=== PATIENT | female | born 1960 | race Caucasian/White ===

== ENCOUNTER → 2018-01-20 | Outpatient (CLI) | payer OTHER ==
--- NOTE | 2018-01-21 13:56 | MM ---
Reason for exam: screening (asymptomatic). Last mammogram was performed 3 years and 3 months ago. History: Patient is postmenopausal. Taking progesterone. Physical Findings: A clinical breast exam by your physician is recommended on an annual basis and results should be correlated with mammographic findings. MG Screening Mammo w CAD Bilateral CC and MLO view(s) were taken. Prior study comparison: October 04, 1998, bilateral special view mammogram. The breast tissue is heterogeneously dense. This may lower the sensitivity of mammography. No significant changes when compared with prior studies. ASSESSMENT: Benign, BI-RAD 2 RECOMMENDATION: Routine screening mammogram of both breasts in 1 year.
== END | disposition home or self-care (01) ==
LOC: RADMAMWWP 12-23 15:10
PROVIDERS: ATTEND Obstetrics & Gynecology
DX: Z12.31 Encounter for screening mammogram for malignant neoplasm of breast (principal)
CPT/HCPCS: 77067

== ENCOUNTER 2018-09-28 12:15 | Inpatient (IN) | payer OTHER ==
[2018-09-28 10:47] LABS: Basophils % (A) 0 %; Eosinophils # (A) 0.2 k/uL (0-0.7); Eosinophils % (A) 1 %; HCT 41.4 % (34.0-46.0); Lymphocytes % (A) 6 %; MCH 32.1 pg (25.0-35.0); MCHC 33.7 g/dL (31.0-37.0); MCV 95.1 fL (80.0-100.0); Mean Platelet Volume 7.7; Monocytes % (A) 6 %; Neutrophils # (A) 12.9 k/uL (1.3-7.7); Neutrophils % (A) 85 %; Platelet Count 328 k/uL (150-450); RBC 4.36 m/uL (3.80-5.40); RDW 12.3 % (11.5-15.5); WBC 15.2 k/uL (3.8-10.6)
[2018-09-28 11:00] LABS: Appearance,Urine Cloudy (Clear); Bilirubin,Urine Negative (Negative); Blood,Urine Small (Negative); Color,Urine Dark Yellow; Glucose,Urine (UA) Negative (Negative); Hyaline Casts,Urine 5 /lpf (0-2); Ketones,Urine 2+ (Negative); Leukocyte Esterase,Urine Negative (Negative); Mucus,Urine Many /hpf; Nitrite,Urine Negative (Negative); Protein,Urine 2+ (Negative); RBC,Urine 21 /hpf (0-5); Specific Gravity,Urine 1.031 (1.001-1.035); Squamous Epithelial Cell,Urine 10 /hpf (0-4); WBC,Urine 8 /hpf (0-5)
[2018-09-28 11:04] LABS: Albumin 4.5 g/dL (3.5-5.0); Calcium 10.1 mg/dL (8.4-10.2); Total Bilirubin 0.8 mg/dL (0.2-1.3)
--- NOTE | 2018-09-28 12:24 | CT ---
EXAMINATION TYPE: CT abdomen pelvis w con DATE OF EXAM: 09/28/2018 COMPARISON: NONE HISTORY: 58-year-old female with upper abdominal right lower quadrant pain for 5 days. TECHNIQUE: Contiguous axial scanning of the abdomen and pelvis following administration of 100 ml Iso promise 300 IV contrast. Delayed images through the kidneys and coronal/sagittal reconstructions perform ed. CT DLP: 1264 mGycm Automated exposure control for dose reduction was used. FINDINGS: Heart normal size without pericardial effusion. Strandy atelectasis or scarring at the left lung base . No pleural effusion. No focal liver lesion or biliary ductal dilatation. Portal venous system is patent. Gallbladder, adrenal glands, spleen, and pancreas appear within normal limits. Scattered hypodense lesions in the kidneys measuring up to 1.4 cm, too small fractured CT characteriz ation, likely cysts. Symmetric uptake and excretion of contrast from both kidneys. No mesenteric or retroperitoneal lymphadenopathy. The cecum is swelling over medial position high in the mid abdomen, probably in part due to mass effe ct from inflammatory changes relating to a thickened, inflamed appendix. The appendix becomes discont inuous along its midportion with a localized rupture. Poorly defined fluid collection measuring 4.8 cm wide by 3.5 cm craniocaudal by 2.9 cm AP extending f rom the site of rupture. Severe fat stranding in this region and borderline enlarged 6 mm right lower quadrant mesenteric lymp h node which is likely reactive. No free air is seen. There is adjacent thickening of the cecum at the base of the appendix and also of the terminal ileum which is narrowed from the adjacent inflammation. Bladder is urine distended. Uterus and ovaries are visualized. No abnormal fluid collection in the pe lvis or pelvic lymphadenopathy. Bones: Degenerative changes of the pubic symphysis. Facet arthropathy lower lumbar spine. Degenerativ e disc disease L5-S1. No osseous process. IMPRESSION: 1. RUPTURED ACUTE APPENDICITIS WITH MODERATE TO SEVERE SURROUNDING INFLAMMATION AND ASSOCIATED POORLY DEFINED FLUID MEASURING 4.8 CM ARISING FROM THE SITE OF RUPTURE. NO WELL-DEFINED ABSCESS AT THIS CARLINE E. 2. WALL THICKENING OF THE ADJACENT CECUM AND TERMINAL ILEUM LIKELY REACTIVE INFLAMMATION. FINDINGS WILL BE CALLED TO THE ORDERING CLINICIAN BY THE TECHNOLOGIST.
[2018-09-28] MEDS ORDERED: SODIUM CHLORIDE 0.9% 1,000 ML IV STA (12:30)
[2018-09-28] MEDS ORDERED: AMPICILLIN-SULBACTAM 3 GM in SODIUM CHLORIDE 0.9% 100 ML IVPB STA (12:40)
[2018-09-28] MEDS ORDERED: ACETAMINOPHEN IV (For NPO) 1,000 MG in EMPTY BAG 1 BAG IVPB STA (12:40)
--- NOTE | 2018-09-28 12:40 | ED ---
General Adult HPI - General Chief complaint: Abdominal Pain Stated complaint: Abd.pain Time Seen by Provider: 09/28/18 12:29 Source: patient, RN notes reviewed Mode of arrival: wheelchair Limitations: no limitations - History of Present Illness Initial comments: 38-year-old female presents to the emergency department from [place]. Patient was sent over for findings of acute appendicitis. Patient states she has had symptoms for the past 5 days. She states at first it was localized in the upper abdomen. She states her pain was worse yesterday and did feel somewhat better today. Patient now states pain is localized in the right lower quadrant. Aggravating factors include picking up her legs and walking. Alleviating factors include laying down. Patient denies fevers or chills at home. She states she has not been eating as much over the past several days because of the pain. She does admit to mild nausea. Patient did not drink any liquids today or eat any food. Patient has no other complaints at this time including shortness of breath, chest pain, nausea or vomiting, headache, or visual changes. - Related Data Home Medications Medication Instructions Recorded Confirmed Naproxen Sodium [Aleve] 440 mg PO DAILY PRN 09/28/18 09/28/18 Allergies Allergy/AdvReac Type Severity Reaction Status Date / Time No Known Allergies Allergy Verified 09/28/18 13:05 Review of Systems ROS Statement: Those systems with pertinent positive or pertinent negative responses have been documented in the HPI. ROS Other: All systems not noted in ROS Statement are negative. Past Medical History Past Medical History: No Reported History History of Any Multi-Drug Resistant Organisms: None Reported Additional Past Surgical History / Comment(s): lithotripsy Past Psychological History: No Psychological Hx Reported Smoking Status: Never smoker Past Alcohol Use History: None Reported, Occasional Past Drug Use History: None Reported, Marijuana - Past Family History Father Family Medical History: Hypertension Additional Family Medical History / Comment(s): Father has some heart issues. Mother Family Medical History: Hypertension Additional Family Medical History / Comment(s): Mother had an appendectomy and knee replacement. General Exam Limitations: no limitations General appearance: alert, in no apparent distress Head exam: Present: atraumatic, normocephalic, normal inspection Eye exam: Present: normal appearance, PERRL, EOMI. Absent: scleral icterus, conjunctival injection, periorbital swelling ENT exam: Present: normal exam, mucous membranes moist Neck exam: Present: normal inspection, full ROM. Absent: tenderness, meningismus, lymphadenopathy Respiratory exam: Present: normal lung sounds bilaterally. Absent: respiratory distress, wheezes, rales, rhonchi, stridor Cardiovascular Exam: Present: regular rate, normal rhythm, normal heart sounds. Absent: systolic murmur, diastolic murmur, rubs, gallop, clicks GI/Abdominal exam: Present: soft, tenderness (Tenderness noted to the right lower quadrant, guarding present. Positive obturator sign. Positive rebound tenderness), normal bowel sounds. Absent: distended, guarding, rebound, rigid Neurological exam: Present: alert, oriented X3, CN II-XII intact Psychiatric exam: Present: normal affect, normal mood Course Vital Signs 09/28/18 09/28/18 09/28/18 12:20 13:49 13:55 Temperature 98.2 F 98.6 F Pulse Rate 98 88 Pulse Rate [ 86 Right Pulse Oximetery] Respiratory 18 18 16 Rate Blood Pressure 136/88 124/80 Blood Pressure 123/61 [Right Arm Supine] O2 Sat by Pulse 99 98 100 Oximetry Medical Decision Making - Medical Decision Making 58-year-old female presents to the emergency department for a chief complaint of ruptured appendicitis. Patient presents from outpatient CT. She has had symptoms for about 5 days. On exam she does have right lower quadrant tenderness with rebound and guarding. CBC does show a white count of 15.2. CMP unremarkable. Cultures pending. CT from outpatient shows a ruptured acute appendicitis with moderate to severe surrounding inflammation and associated poorly defined fluid measuring 4.8 cm. No well-defined abscess at this time. Patient immediately put on Unasyn. Dr. Franco contacted Dr. Boyer about the results who did call me here in the emergency department. He will admit the patient and states surgical team will be coming down to get her shortly. Discussed case with Alba - Lab Data Result diagrams: 09/28/18 12:48 09/28/18 12:48 Lab Results 09/28/18 09/28/18 09/28/18 Range/Units 10:25 10:25 10:25 WBC 15.2 H (3.8-10.6) k/uL RBC 4.36 (3.80-5.40) m/uL Hgb 14.0 (11.4-16.0) gm/dL Hct 41.4 (34.0-46.0) % MCV 95.1 (80.0-100.0) fL MCH 32.1 (25.0-35.0) pg MCHC 33.7 (31.0-37.0) g/dL RDW 12.3 (11.5-15.5) % Plt Count 328 (150-450) k/uL Neutrophils % 85 % Lymphocytes % 6 % Monocytes % 6 % Eosinophils % 1 % Basophils % 0 % Neutrophils # 12.9 H (1.3-7.7) k/uL Lymphocytes # 1.0 (1.0-4.8) k/uL Monocytes # 1.0 (0-1.0) k/uL Eosinophils # 0.2 (0-0.7) k/uL Basophils # 0.0 (0-0.2) k/uL Sodium 139 (137-145) mmol/L Potassium 4.0 (3.5-5.1) mmol/L Chloride 99 (98-107) mmol/L Carbon Dioxide 25 (22-30) mmol/L Anion Gap 15 mmol/L BUN 17 (7-17) mg/dL Creatinine 0.92 (0.52-1.04) mg/dL Est GFR (CKD-EPI)AfAm 80 (>60 ml/min/1.73 sqM) Est GFR (CKD-EPI)NonAf 70 (>60 ml/min/1.73 sqM) Glucose 92 (74-99) mg/dL Plasma Lactic Acid James (0.7-2.0) mmol/L Calcium 10.1 (8.4-10.2) mg/dL Total Bilirubin 0.8 (0.2-1.3) mg/dL AST 26 (14-36) U/L ALT 31 (9-52) U/L Alkaline Phosphatase 108 (38-126) U/L Total Protein 8.0 (6.3-8.2) g/dL Albumin 4.5 (3.5-5.0) g/dL Amylase 37 (30-110) U/L Lipase 47 (23-300) U/L Urine Color Dark Yellow Urine Appearance Cloudy H (Clear) Urine pH 6.0 (5.0-8.0) Ur Specific [place] 1.031 (1.001-1.035) Urine Protein 2+ H (Negative) Urine Glucose (UA) Negative (Negative) Urine Ketones 2+ H (Negative) Urine Blood Small H (Negative) Urine Nitrite Negative (Negative) Urine Bilirubin Negative (Negative) Urine Urobilinogen 8.0 (<2.0) mg/dL Ur Leukocyte Esterase Negative (Negative) Urine RBC 21 H (0-5) /hpf Urine WBC 8 H (0-5) /hpf Ur Squamous Epith Cells 10 H (0-4) /hpf Hyaline Casts 5 H (0-2) /lpf Urine Mucus Many H (None) /hpf 09/28/18 09/28/18 09/28/18 Range/Units 12:48 12:48 12:48 WBC 15.2 H (3.8-10.6) k/uL RBC 4.36 (3.80-5.40) m/uL Hgb 13.7 (11.4-16.0) gm/dL Hct 41.3 (34.0-46.0) % MCV 94.7 (80.0-100.0) fL MCH 31.3 (25.0-35.0) pg MCHC 33.1 (31.0-37.0) g/dL RDW 12.3 (11.5-15.5) % Plt Count 325 (150-450) k/uL Neutrophils % 84 % Lymphocytes % 6 % Monocytes % 7 % Eosinophils % 1 % Basophils % 0 % Neutrophils # 12.8 H (1.3-7.7) k/uL Lymphocytes # 0.9 L (1.0-4.8) k/uL Monocytes # 1.0 (0-1.0) k/uL Eosinophils # 0.2 (0-0.7) k/uL Basophils # 0.1 (0-0.2) k/uL Sodium 134 L (137-145) mmol/L Potassium 4.2 (3.5-5.1) mmol/L Chloride 97 L (98-107) mmol/L Carbon Dioxide 22 (22-30) mmol/L Anion Gap 15 mmol/L BUN 17 (7-17) mg/dL Creatinine 0.75 (0.52-1.04) mg/dL Est GFR (CKD-EPI)AfAm >90 (>60 ml/min/1.73 sqM) Est GFR (CKD-EPI)NonAf 89 (>60 ml/min/1.73 sqM) Glucose 93 (74-99) mg/dL Plasma Lactic Acid James 0.9 (0.7-2.0) mmol/L Calcium 9.8 (8.4-10.2) mg/dL Total Bilirubin 0.8 (0.2-1.3) mg/dL AST 30 (14-36) U/L ALT 27 (9-52) U/L Alkaline Phosphatase 107 (38-126) U/L Total Protein 7.6 (6.3-8.2) g/dL Albumin 4.3 (3.5-5.0) g/dL Amylase (30-110) U/L Lipase (23-300) U/L Urine Color Urine Appearance (Clear) Urine pH (5.0-8.0) Ur Specific [place] (1.001-1.035) Urine Protein (Negative) Urine Glucose (UA) (Negative) Urine Ketones (Negative) Urine Blood (Negative) Urine Nitrite (Negative) Urine Bilirubin (Negative) Urine Urobilinogen (<2.0) mg/dL Ur Leukocyte Esterase (Negative) Urine RBC (0-5) /hpf Urine WBC (0-5) /hpf Ur Squamous Epith Cells (0-4) /hpf Hyaline Casts (0-2) /lpf Urine Mucus (None) /hpf Disposition Clinical Impression: Ruptured appendix Disposition: ADMITTED IP TO THIS HOSP Condition: Fair Is patient prescribed a controlled substance at d/c from ED?: No Time of Disposition: 13:06
[2018-09-28] MEDS ORDERED: NALOXONE 0.4 MG/ML 1 ML VIAL IV PRN ×2 (13:07→15:50)
[2018-09-28 13:13] LABS: Basophils # (A) 0.1 k/uL (0-0.2); Basophils % (A) 0 %; Eosinophils # (A) 0.2 k/uL (0-0.7); Eosinophils % (A) 1 %; HCT 41.3 % (34.0-46.0); HGB 13.7 gm/dL (11.4-16.0); Lymphocytes # (A) 0.9 k/uL (1.0-4.8); Lymphocytes % (A) 6 %; MCH 31.3 pg (25.0-35.0); MCHC 33.1 g/dL (31.0-37.0); MCV 94.7 fL (80.0-100.0); Mean Platelet Volume 7.1; Monocytes % (A) 7 %; Neutrophils # (A) 12.8 k/uL (1.3-7.7); Neutrophils % (A) 84 %; Platelet Count 325 k/uL (150-450); RBC 4.36 m/uL (3.80-5.40); RDW 12.3 % (11.5-15.5); WBC 15.2 k/uL (3.8-10.6)
[2018-09-28 13:28] LABS: ALT 27 U/L (9-52); AST 30 U/L (14-36); Albumin 4.3 g/dL (3.5-5.0); Alkaline Phosphatase 107 U/L (38-126); Anion Gap 15 mmol/L; Blood Urea Nitrogen 17 mg/dL (7-17); Calcium 9.8 mg/dL (8.4-10.2); Carbon Dioxide 22 mmol/L (22-30); Chloride 97 mmol/L (98-107); Glucose 93 mg/dL (74-99); Potassium 4.2 mmol/L (3.5-5.1); Sodium 134 mmol/L (137-145); Total Bilirubin 0.8 mg/dL (0.2-1.3); Total Protein 7.6 g/dL (6.3-8.2)
[2018-09-28] MEDS: SODIUM CHLORIDE 0.9% 1,000 ML IV SCH ×2 (13:42→23:18)
[2018-09-28] MEDS ORDERED: IV FLUID CONTINUATION 1,000 ML IV ONE ×2 (13:52)
--- NOTE | 2018-09-28 14:30 | P.EN ---
i came to see pt , she was taken to OR as per staff we will follow up
--- NOTE | 2018-09-28 14:38 | P.GSHP ---
History of Present Illness H&P Date: 09/28/18 Chief Complaint: Right lower quadrant pain This a 58-year-old female who developed right lower quadrant pain while vacationing in [place] last week. Patient states she had pain on . She is started on amoxicillin. Pain progressed. She came home last night and was sent to the emergency room. She was found have evidence acute appendicitis on CAT scan. Past Medical History Past Medical History: No Reported History Additional Past Medical History / Comment(s): Urolithiasis, hypothyroid-has been on and off med for this. History of Any Multi-Drug Resistant Organisms: None Reported Past Surgical History: Hernia Repair, Tonsillectomy Additional Past Surgical History / Comment(s): lithotripsy Past Anesthesia/Blood Transfusion Reactions: No Reported Reaction Past Psychological History: No Psychological Hx Reported Smoking Status: Never smoker Past Alcohol Use History: None Reported, Occasional Past Drug Use History: None Reported, Marijuana - Past Family History Father Family Medical History: Hypertension Additional Family Medical History / Comment(s): Father has some heart issues. Mother Family Medical History: Hypertension Additional Family Medical History / Comment(s): Mother had an appendectomy and knee replacement. Medications and Allergies Home Medications Medication Instructions Recorded Confirmed Type Naproxen Sodium [Aleve] 440 mg PO DAILY PRN 09/28/18 09/28/18 History Allergies Allergy/AdvReac Type Severity Reaction Status Date / Time No Known Allergies Allergy Verified 09/28/18 14:04 Surgical - Exam Vital Signs Temp Pulse Resp BP Pulse Ox 98.2 F 98 18 136/88 99 09/28/18 12:20 09/28/18 12:20 09/28/18 12:20 09/28/18 12:20 09/28/18 12:20 - General well developed, no distress - Eyes PERRL - ENT normal pinna - Neck no masses - Respiratory normal expansion - Cardiovascular Rhythm: regular - Abdomen Soft, right sided abdominal tenderness. Results - Labs 09/28/18 12:48 09/28/18 12:48 Abnormal Lab Results - Last 24 Hours (Table) 09/28/18 09/28/18 09/28/18 Range/Units 10:25 10:25 12:48 WBC 15.2 H 15.2 H (3.8-10.6) k/uL Neutrophils # 12.9 H 12.8 H (1.3-7.7) k/uL Lymphocytes # 0.9 L (1.0-4.8) k/uL Sodium (137-145) mmol/L Chloride (98-107) mmol/L Urine Appearance Cloudy H (Clear) Urine Protein 2+ H (Negative) Urine Ketones 2+ H (Negative) Urine Blood Small H (Negative) Urine RBC 21 H (0-5) /hpf Urine WBC 8 H (0-5) /hpf Ur Squamous Epith Cells 10 H (0-4) /hpf Hyaline Casts 5 H (0-2) /lpf Urine Mucus Many H (None) /hpf 09/28/18 Range/Units 12:48 WBC (3.8-10.6) k/uL Neutrophils # (1.3-7.7) k/uL Lymphocytes # (1.0-4.8) k/uL Sodium 134 L (137-145) mmol/L Chloride 97 L (98-107) mmol/L Urine Appearance (Clear) Urine Protein (Negative) Urine Ketones (Negative) Urine Blood (Negative) Urine RBC (0-5) /hpf Urine WBC (0-5) /hpf Ur Squamous Epith Cells (0-4) /hpf Hyaline Casts (0-2) /lpf Urine Mucus (None) /hpf Diabetes panel 09/28/18 09/28/18 Range/Units 10:25 12:48 Sodium 139 134 L (137-145) mmol/L Potassium 4.0 4.2 (3.5-5.1) mmol/L Chloride 99 97 L (98-107) mmol/L Carbon Dioxide 25 22 (22-30) mmol/L BUN 17 17 (7-17) mg/dL Creatinine 0.92 0.75 (0.52-1.04) mg/dL Glucose 92 93 (74-99) mg/dL Calcium 10.1 9.8 (8.4-10.2) mg/dL AST 26 30 (14-36) U/L ALT 31 27 (9-52) U/L Alkaline Phosphatase 108 107 (38-126) U/L Total Protein 8.0 7.6 (6.3-8.2) g/dL Albumin 4.5 4.3 (3.5-5.0) g/dL Calcium panel 09/28/18 09/28/18 Range/Units 10:25 12:48 Calcium 10.1 9.8 (8.4-10.2) mg/dL Albumin 4.5 4.3 (3.5-5.0) g/dL Pituitary panel 09/28/18 09/28/18 Range/Units 10:25 12:48 Sodium 139 134 L (137-145) mmol/L Potassium 4.0 4.2 (3.5-5.1) mmol/L Chloride 99 97 L (98-107) mmol/L Carbon Dioxide 25 22 (22-30) mmol/L BUN 17 17 (7-17) mg/dL Creatinine 0.92 0.75 (0.52-1.04) mg/dL Glucose 92 93 (74-99) mg/dL Calcium 10.1 9.8 (8.4-10.2) mg/dL Adrenal panel 09/28/18 09/28/18 Range/Units 10:25 12:48 Sodium 139 134 L (137-145) mmol/L Potassium 4.0 4.2 (3.5-5.1) mmol/L Chloride 99 97 L (98-107) mmol/L Carbon Dioxide 25 22 (22-30) mmol/L BUN 17 17 (7-17) mg/dL Creatinine 0.92 0.75 (0.52-1.04) mg/dL Glucose 92 93 (74-99) mg/dL Calcium 10.1 9.8 (8.4-10.2) mg/dL Total Bilirubin 0.8 0.8 (0.2-1.3) mg/dL AST 26 30 (14-36) U/L ALT 31 27 (9-52) U/L Alkaline Phosphatase 108 107 (38-126) U/L Total Protein 8.0 7.6 (6.3-8.2) g/dL Albumin 4.5 4.3 (3.5-5.0) g/dL - Imaging CT scan - abdomen: report reviewed (Thickened appendix with evidence of rupture) Assessment and Plan Assessment: Acute appendicitis with ruptured appendix. Patient will undergo laparoscopic appendectomy possible open appendectomy today.
[2018-09-28] MEDS ORDERED: HEPARIN SODIUM,PORCINE 5,000 UNIT/ML 1 ML VIAL SQ ONE (14:41)
[2018-09-28] MEDS ORDERED: ONDANSETRON 4 MG/2 ML VIAL IVP ONE (14:42)
[2018-09-28] MEDS ORDERED: DEXAMETHASONE SOD PHOSPHATE 10 MG/ML 1 ML VIAL IV ONE (14:43)
[2018-09-28] MEDS ORDERED: BUPIVACAIN-EPI 0.5%-1:200,000 30 ML VIAL SQ ONE ×2 (14:57→15:48)
[2018-09-28] MEDS ORDERED: ePHEDrine SULFATE/0.9% NACL/PF 50 MG/5 ML SYRINGE IV ONE (14:58)
[2018-09-28] MEDS ORDERED: KETOROLAC 30 MG/ML 1 ML VIAL ONE (14:58)
[2018-09-28] MEDS ORDERED: MIDAZOLAM 2 MG/2 ML VIAL ONE (14:58)
[2018-09-28] MEDS ORDERED: PROPOFOL 10 MG/ML 20 ML VIAL IV ONE (14:58)
[2018-09-28] MEDS ORDERED: fentaNYL (PF) 50 MCG/ML 2 ML AMP ONE (14:58)
[2018-09-28] MEDS ORDERED: SUCCINYLCHOLINE CHLORIDE 100 MG/5 ML SYR IV ONE (14:58)
[2018-09-28] MEDS ORDERED: LIDOCAINE 1% INJ 10MG/ML (20 ML MDV) ONE (14:58)
[2018-09-28] MEDS ORDERED: ROCURONIUM BROMIDE 10 MG/ML 10 ML VIAL IV ONE (14:58)
[2018-09-28] MEDS ORDERED: NEOSTIGMINE 1 MG/ML 10 ML VIAL ONE (14:58)
[2018-09-28] MEDS ORDERED: GLYCOPYRROLATE 0.2 MG/ML 2 ML VIAL ONE (14:58)
--- NOTE | 2018-09-28 15:41 | CONS ---
CONSULTATION Roseann is a 58-year-old female, to one of the local dentists. Last evening after I got home from [place], she texted me to say that she was having some severe abdominal discomfort. Apparently began after eating a meal on Friday. She used Aleve periodically to help relieve the pain. She may have had a slight fever. Denied any urinary complaints. She was nauseated but did not have any vomiting and she did not have any diarrhea. The pain seemed to intensify and she was using the Aleve for pain control. She called her son who is a physician who recommended fluids because she was not really eating at that point because she had no appetite. After I talked to her last night, we decided to go ahead and order some blood work on her this morning and also get her scheduled for a CT scan of the chest. The blood work showed a white count of 15.2. Hemoglobin, hematocrit and platelet count were all normal. In addition, her electrolytes look good including her kidney function. Her liver function was normal and her amylase and lipase were normal. In addition, her urine was dark and yellow. It was somewhat cloudy with 2+ protein, 2+ ketones, and small amount of blood. There were 21 RBCs, 8 WBCs, some squamous epithelial cells, some hyaline casts and there was urinary mucus. In addition, we went ahead and ordered a CT scan of the abdomen and pelvis. It was done with oral and IV contrast. It showed a ruptured acute appendicitis with moderate to severe surrounding inflammation and associated poorly defined fluid measuring 4.8 cm arising from the site of the rupture. There was no well-defined abscess at that time, and there was some wall thickening of the adjacent cecum and terminal ileum, likely reactive in nature. I did speak to Dr. Boyer. He knows about the patient. The patient was seen in the emergency department. She was sitting up in the bed. Complaining of pain in the right lower quadrant of the abdomen. The pain initially was more epigastric in nature and did not localize. PAST MEDICAL HISTORY: Unremarkable. SURGICAL HISTORY: Unremarkable. HOME MEDICATIONS: Only included the Aleve. ALLERGIES: There are no known drug allergies. SOCIAL HISTORY: Is unremarkable. FAMILY HISTORY: Family history is not remarkable. 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 REVIEW OF SYSTEMS: Constitutional: Possible fever. Neurologic negative. HEENT negative. Cardiovascular negative. Pulmonary negative. GI nausea and abdominal pain. Initially, epigastric in nature, now localized to the right lower quadrant. negative. Rheumatological negative. ENDOCRINOLOGIC/DERMATOLOGIC: Negative. Current vital signs are reviewed. Temperature 98.6, heart rate 88, respiratory rate 18, blood pressure 124/80, room air saturations are 98-100%. Appears in no acute distress. Is a bit anxious. HEENT examination is grossly unremarkable. Mucous membranes are moist. NECK: Supple. Full range of motion. No adenopathy. Cardiovascular examination reveals regular rhythm and rate. S1, S2 normal. Heart rate 88. LUNGS: Clear breath sounds. No wheezes, rhonchi, or crackles. Abdomen reveals some tenderness on palpation to the epigastric and right lower quadrant area of the abdomen. No masses. Extremities are intact. No cyanosis, clubbing, or edema. Skin without rash. Neurologic examination is brief but nonfocal. LABS AND RADIOGRAPHS: Are reviewed. They are mentioned above. ASSESSMENT: Ruptured acute appendicitis. PLAN: Surgery has been consulted. The patient will likely go to the operating room today. I did discuss the case with the surgeon. We will have Dr. Tatum's service see the patient for medical management. I will continue to follow the patient for any critical care issues. We are concerned obviously about sepsis at this time. Additional recommendations and suggestions are forthcoming. Prognosis is guarded. MMODL / IJN: [id number] /
[2018-09-28] MEDS ORDERED: HYDROmorphone 1 MG/ML 1 ML SYRINGE IVP PRN (15:50)
[2018-09-28] MEDS ORDERED: LACTATED RINGERS 1,000 ML IV ONE (15:50)
[2018-09-28] MEDS ORDERED: ONDANSETRON 4 MG/2 ML VIAL IVP PRN (15:50)
--- NOTE | 2018-09-28 15:50 | P.OP ---
Date of Procedure: 09/28/18 Preoperative Diagnosis: Acute appendicitis Postoperative Diagnosis: Acute ruptured appendicitis Procedure(s) Performed: Laparoscopic appendectomy Anesthesia: YAEL Surgeon: Trevor Boyer Estimated Blood Loss (ml): 5 Pathology: other (Appendix, culture) Condition: stable Disposition: PACU Description of Procedure: The patient's placed on the operating table in the supine position. The patient received general anesthesia. The abdomen was prepped and draped in the usual sterile fashion. The skin was anesthetized 1% local Xylocaine at the trocar sites. Using an 11 blade the skin was incised at the umbilicus. The umbilicus was grasped with a [place] clamp and then a Veress needle was placed into the peritoneal cavity. Position of the Veress needle was confirmed with positive drop test. After adequate insufflation a 5 mm trocar was placed into the peritoneal cavity. The abdomen was further insufflated. And then the laparoscope was placed in the peritoneal cavity. Next a 5 mm trocar was placed in the midline suprapubic position. And then a 10 mm trocar was placed in the midline epigastric position. The patient was rotated with the right side up and in Trendelenburg. There was an inflammatory mass seen in the right lateral abdominal wall area. The small bowel was peeled off this area. There was an abscess. The abscess was aspirated. The appendix wasn't visualized. The appendix appeared to be necrotic with evidence of perforation near the base the appendix. The appendix was grasped and then using the Harmonic scissors the mesoappendix was divided. The base of the appendix appeared to be viable. A PDS Endoloop was then placed around the base of the appendix. And then the appendix was divided using Harmonic scissors. The appendix was placed into an Endo Catch and brought out through the 10 mm trocar site. The abdomen was irrigated. A THALIA drain was placed into the pleural cavity and brought out through a right lateral incision. There is no bleeding seen. The trochars withdrawn. The skin was closed interrupted 3-0 Monocryl suture. Dermabond dressing was applied. Patient was sent to recovery room in stable condition.
[2018-09-28] MEDS ORDERED: metroNIDAZOLE-NS PMX 500 MG in SALINE 1 100ML.BAG IVPB SCH (16:00)
[2018-09-28] MEDS ORDERED: HYDROmorphone 1 MG/ML 1 ML SYRINGE IVP ONE (16:13)
[2018-09-28] MEDS: METOCLOPRAMIDE 5 MG/ML 2 ML VIAL IVP SCH ×2 (17:23→22:21)
[2018-09-28] MEDS: KETOROLAC 30 MG/ML 1 ML VIAL IVP SCH ×2 (17:23→22:20)
[2018-09-28] MEDS ORDERED: HYDROmorphone 0.5 MG/0.5 ML SYRINGE IVP STA (21:40)
--- NOTE | 2018-09-28 21:41 | P.CONS ---
History of Present Illness - History of Present Illness This is a pleasant 58 years old female with no significant past medical history except for urolithiasis and hernia repair. Presents with right lower quadrant abdominal pain. Computed tomography scan of the abdomen showed perforated acute appendicitis with surrounding inflammation. A shunt was taken to operation room where she underwent Laparoscopic appendectomy. Patient seen postoperatively lying in bed, fully awake and oriented. Not in distress. Her pain in the surgical site is slightly uncontrolled and she asking a little bit more of pain medication. No nausea vomiting. She is tolerating liquid diet ( juice and water) . No bowel movement or passing gases yet. She is on pain medication, Lovenox for DVT prophylaxis as per primary surgical team. Also she is on Flagyl and Protonix. IV fluids with normal saline at 100 mL per hour. Review of Systems CONSTITUTIONAL: No fever, no malaise, no fatigue. HEENT: No recent visual problems or hearing problems. Denied any sore throat. CARDIOVASCULAR: No orthopnea, PND, no palpitations, no syncope. PULMONARY: No shortness of breath, no cough, no hemoptysis. GASTROINTESTINAL: No diarrhea, no nausea, no vomiting, no abdominal pain. Normoactive bowel sounds. NEUROLOGICAL: No headaches, no weakness, no numbness. HEMATOLOGICAL: Denies any bleeding or petechiae. GENITOURINARY: Denies any burning micturition, frequency, or urgency. MUSCULOSKELETAL/RHEUMATOLOGICAL: Denies any joint pain, swelling, or any muscle pain. ENDOCRINE: Denies any polyuria or polydipsia. Past Medical History Past Medical History: No Reported History Additional Past Medical History / Comment(s): Urolithiasis, hypothyroid-has been on and off med for this. History of Any Multi-Drug Resistant Organisms: None Reported Past Surgical History: Hernia Repair, Tonsillectomy Additional Past Surgical History / Comment(s): lithotripsy Past Anesthesia/Blood Transfusion Reactions: No Reported Reaction Past Psychological History: No Psychological Hx Reported Smoking Status: Never smoker Past Alcohol Use History: None Reported, Occasional Past Drug Use History: None Reported, Marijuana - Past Family History Father Family Medical History: Hypertension Additional Family Medical History / Comment(s): Father has some heart issues. Mother Family Medical History: Hypertension Additional Family Medical History / Comment(s): Mother had an appendectomy and knee replacement. Medications and Allergies Home Medications Medication Instructions Recorded Confirmed Type Naproxen Sodium [Aleve] 440 mg PO DAILY PRN 09/28/18 09/28/18 History Allergies Allergy/AdvReac Type Severity Reaction Status Date / Time No Known Allergies Allergy Verified 09/28/18 14:04 Physical Exam Vitals: Vital Signs Temp Pulse Pulse Resp BP BP Pulse Ox 09/28/18 16:44 72 14 112/58 100 09/28/18 16:30 69 16 115/67 100 09/28/18 16:15 61 16 117/67 100 09/28/18 15:59 97.6 F 72 16 117/63 99 09/28/18 13:55 98.6 F 86 16 123/61 100 09/28/18 13:49 88 18 124/80 98 09/28/18 12:20 98.2 F 98 18 136/88 99 Intake and Output 09/28/18 09/28/18 09/28/18 06:59 14:59 22:59 Intake Total 600 700 Output Total 3 Balance 600 697 Intake: IV 400 700 Amount of Fluid Infused ( 200 ml) Output: Estimated Blood Loss 3 Other: Weight 65.771 kg GENERAL: The patient is alert and oriented x3, not in any acute distress. Well developed, well nourished. HEENT: Pupils are round and equally reacting to light. EOMI. No scleral icterus. No conjunctival pallor. Normocephalic, atraumatic. No pharyngeal erythema. No thyromegaly. CARDIOVASCULAR: S1 and S2 present. No murmurs, rubs, or gallops. PULMONARY: Chest is clear to auscultation, no wheezing or crackles. -ABDOMEN: Soft, nontender, nondistended, normoactive bowel sounds. No palpable organomegaly. Right lower quadrant surgical wound is clean and closed. MUSCULOSKELETAL: No joint swelling or deformity. EXTREMITIES: No cyanosis, clubbing, or pedal edema. NEUROLOGICAL: Gross neurological examination did not reveal any focal deficits. SKIN: No rashes. Results CBC & Chem 7: 09/28/18 12:48 09/28/18 12:48 Labs: Abnormal Lab Results - Last 24 Hours (Table) 09/28/18 09/28/18 09/28/18 Range/Units 10:25 10:25 12:48 WBC 15.2 H 15.2 H (3.8-10.6) k/uL Neutrophils # 12.9 H 12.8 H (1.3-7.7) k/uL Lymphocytes # 0.9 L (1.0-4.8) k/uL Sodium (137-145) mmol/L Chloride (98-107) mmol/L Urine Appearance Cloudy H (Clear) Urine Protein 2+ H (Negative) Urine Ketones 2+ H (Negative) Urine Blood Small H (Negative) Urine RBC 21 H (0-5) /hpf Urine WBC 8 H (0-5) /hpf Ur Squamous Epith Cells 10 H (0-4) /hpf Hyaline Casts 5 H (0-2) /lpf Urine Mucus Many H (None) /hpf 09/28/18 Range/Units 12:48 WBC (3.8-10.6) k/uL Neutrophils # (1.3-7.7) k/uL Lymphocytes # (1.0-4.8) k/uL Sodium 134 L (137-145) mmol/L Chloride 97 L (98-107) mmol/L Urine Appearance (Clear) Urine Protein (Negative) Urine Ketones (Negative) Urine Blood (Negative) Urine RBC (0-5) /hpf Urine WBC (0-5) /hpf Ur Squamous Epith Cells (0-4) /hpf Hyaline Casts (0-2) /lpf Urine Mucus (None) /hpf Microbiology - Last 24 Hours (Table) 09/28/18 10:25 Urine Culture - Preliminary Urine,Voided Assessment and Plan Assessment: Perforated appendicitis, status post laparoscopic appendectomy Postoperative pain, on therapy Leukocytosis, secondary to above Abnormal urinalysis, mostly related to her appendicitis and dehydration. Plan: This is a pleasant 58 years old female, she is a status post laparoscopic appendectomy. Continue with DVT prophylaxis and pain management as per primary surgical team. Currently she is on Lovenox. She is on Protonix for GI prophylaxis. Infectious disease has been consulted. However we will change her Flagyl to zosyn pending culture results and to cover for gram-negative and anaerobic bacteria pending Infectious disease team final recommendation. Labs and medication were reviewed.. Continue same treatment. Continue with symptomatic treatment. Resume home medication. Monitor lytes and vitals. DVT and GI prophylaxis. Further recommendations of the clinical course of the patient Prognosis is guarded
[2018-09-28] MEDS: DOCUSATE 100 MG CAP PO SCH (22:22)
[2018-09-28] MEDS: PIPERACILLIN-TAZOBACTAM 3.375 GM in SODIUM CHLORIDE 0.9% 100 ML IVPB SCH (23:10)
[2018-09-29] MEDS ORDERED: PIPERACILLIN-TAZOBACTAM 3.375 GM in SODIUM CHLORIDE 0.9% 100 ML IVPB SCH ×2
[2018-09-29] MEDS: METOCLOPRAMIDE 5 MG/ML 2 ML VIAL IVP SCH ×4 (03:59→21:25)
[2018-09-29] MEDS: KETOROLAC 30 MG/ML 1 ML VIAL IVP SCH ×4 (03:59→21:26)
[2018-09-29 07:28] LABS: Basophils % (A) 0 %; Eosinophils % (A) 0 %; HCT 35.3 % (34.0-46.0); HGB 11.4 gm/dL (11.4-16.0); Lymphocytes # (A) 0.6 k/uL (1.0-4.8); Lymphocytes % (A) 3 %; MCH 31.2 pg (25.0-35.0); MCHC 32.3 g/dL (31.0-37.0); MCV 96.5 fL (80.0-100.0); Mean Platelet Volume 7.3; Monocytes # (A) 0.5 k/uL (0-1.0); Monocytes % (A) 3 %; Neutrophils # (A) 18.6 k/uL (1.3-7.7); Neutrophils % (A) 94 %; Platelet Count 300 k/uL (150-450); RBC 3.65 m/uL (3.80-5.40); RDW 12.4 % (11.5-15.5); WBC 19.9 k/uL (3.8-10.6)
[2018-09-29 07:31] LABS: ALT 28 U/L (9-52); AST 25 U/L (14-36); Albumin 3.3 g/dL (3.5-5.0); Alkaline Phosphatase 92 U/L (38-126); Anion Gap 10 mmol/L; Blood Urea Nitrogen 12 mg/dL (7-17); Carbon Dioxide 24 mmol/L (22-30); Chloride 105 mmol/L (98-107); Glucose 154 mg/dL (74-99); Potassium 4.6 mmol/L (3.5-5.1); Sodium 139 mmol/L (137-145); Total Bilirubin 0.4 mg/dL (0.2-1.3)
[2018-09-29] MEDS: PANTOPRAZOLE 40 MG/10 ML VIAL IV SCH (09:21)
[2018-09-29] MEDS: PIPERACILLIN-TAZOBACTAM 3.375 GM in SODIUM CHLORIDE 0.9% 100 ML IVPB SCH ×2 (09:21→16:18)
[2018-09-29] MEDS: DOCUSATE 100 MG CAP PO SCH ×2 (09:21→21:25)
[2018-09-29] MEDS: ENOXAPARIN 40 MG/0.4 ML SYRINGE SQ SCH (09:21)
--- NOTE | 2018-09-29 10:45 | PN ---
PROGRESS NOTE This is a 58-year-old female that we saw in consultation yesterday. The patient was having abdominal pain for about 4 or 5 days. It started mid week, late week, last week. She texted me, contacted me on Friday evening and we set her up for some blood work and a CT scan of the abdomen and pelvis on Friday morning. Unfortunately, the CT scan of the abdomen showed a ruptured acute appendicitis. She had surgery yesterday. It was done laparoscopically by Dr. Boyer. She had a ruptured appendix. There was pus in the abdomen. The patient had a pretty uneventful night last night. She is currently on IV antibiotics. The patient seems to be doing reasonably well. Certainly there is a risk of overwhelming sepsis and abdominal sepsis giving the intraoperative findings. Current vital signs include temperature 98.1, heart rate 73, respiratory rate 16, blood pressure 101/64, mean 76, room air saturation 96%. Appears in no acute distress. HEENT examination is grossly unremarkable. Mucous membranes are moist. NECK: Supple. Full range of motion. Cardiovascular examination reveals regular rhythm rate. Heart rate 73. Lungs are clear. Breath sounds equal. No wheezes, rhonchi, or crackles. Abdomen is a little tender on palpation. No bowel sounds are noted. Extremities are intact. No cyanosis, clubbing, or edema. Skin without rash. Neurologic examination is brief but nonfocal. White count is increased from 15.2 up to 19.9. Hemoglobin, hematocrit and platelet count are all stable. Electrolytes look good. Glucose is 154. Her albumin 3.3. Her other lab testing is noted. Microbiology thus far is negative or pending. Medications are reviewed. ASSESSMENT: Postoperative day #1, status post laparoscopic appendectomy for ruptured acute appendicitis. PLAN: Will watch patient very carefully. The patient is certainly at risk for abdominal sepsis. We will continue to follow. The patient is on good antibiotics. The patient is currently on Unasyn. Other medications are reviewed. No additional recommendations are made. The patient also is on Zosyn at this time. We will continue to follow. Prognosis is guarded. MMODL / IJN: [id number] /
[2018-09-29] MEDS: SODIUM CHLORIDE 0.9% 1,000 ML IV SCH ×2 (12:00→21:31)
--- NOTE | 2018-09-29 12:13 | P.PN ---
Subjective Progress Note Date: 09/29/18 CHIEF COMPLAINT: Abdominal pain HISTORY OF PRESENT ILLNESS: Patient is status post laparoscopic appendectomy for acute ruptured appendicitis. Patient states her pain is tolerable at this time. She is tolerating clear liquids. Minimal flatus. No bowel movement at this time. THALIA drain to right lower quadrant with cloudy serosanguineous drainage. White count today is 19.9 up from 15.2. Infectious disease has been consulted. PHYSICAL EXAM: VITAL SIGNS: Currently stable. GENERAL: Well-developed in no acute distress. HEENT: No sclera icterus. Extraocular movements grossly intact. Moist buccal mucosa. Head is atraumatic, normocephalic. Hears conversational speech. No nasal drainage. NECK: Supple without lymphadenopathy. CHEST: Non-labored respirations and equal bilateral excursions. CARDIOVASCULAR: Regular rate with regular rhythm. Palpable 2+ radial pulses. ABDOMEN: Soft. Nondistended. THALIA drain to right lower quadrant with cloudy serous sanguinous drainage. Incisions dry and intact without drainage. MUSCULOSKELETAL: No clubbing, cyanosis or edema. NEUROLOGIC: No focal or lateralizing signs. Cranial nerves II through XII grossly intact. PSYCH: Appropriate affect. Alert and oriented to person, place and time. SKIN: Well perfused. Good skin turgor. ASSESSMENT: 1. Acute ruptured appendicitis, status post laparoscopic appendectomy 2. Leukocytosis PLAN: 1. Continue clear liquid diet at this time. Await return of bowel function before advancing diet 2. Continue antibiotics. Monitor CBC. Dr. Saul on consult for infectious disease 3. Increase activity as tolerated 4. Pain control Nurse practitioner note has been reviewed by physician. Signing provider agrees with the documented findings, assessment, and plan of care. Objective - Vital Signs Vital signs: Vital Signs Temp 98.1 F 09/29/18 07:00 Pulse 73 09/29/18 07:00 Resp 16 09/29/18 07:00 BP 101/64 09/29/18 07:00 Pulse Ox 96 09/29/18 07:00 Intake & Output 09/28/18 09/29/18 09/29/18 18:59 06:59 18:59 Intake Total 1300 Output Total 3 80 20 Balance 1297 -80 -20 Weight 65.771 kg Intake: IV 1100 Amount of Fluid Infused ( 200 ml) Output: Drainage 80 20 Abdomen 80 20 Estimated Blood Loss 3 Other: Voiding Method Toilet # Voids 1 - Labs CBC & Chem 7: 09/29/18 05:56 09/29/18 05:56 Labs: Abnormal Lab Results - Last 24 Hours (Table) 09/28/18 09/28/18 09/28/18 Range/Units 10:25 12:48 12:48 WBC 15.2 H (3.8-10.6) k/uL RBC (3.80-5.40) m/uL Neutrophils # 12.8 H (1.3-7.7) k/uL Lymphocytes # 0.9 L (1.0-4.8) k/uL Sodium 134 L (137-145) mmol/L Chloride 97 L (98-107) mmol/L Glucose (74-99) mg/dL Total Protein (6.3-8.2) g/dL Albumin (3.5-5.0) g/dL Urine Ketones 2+ H (Negative) 09/29/18 09/29/18 Range/Units 05:56 05:56 WBC 19.9 H (3.8-10.6) k/uL RBC 3.65 L (3.80-5.40) m/uL Neutrophils # 18.6 H (1.3-7.7) k/uL Lymphocytes # 0.6 L (1.0-4.8) k/uL Sodium (137-145) mmol/L Chloride (98-107) mmol/L Glucose 154 H (74-99) mg/dL Total Protein 6.0 L (6.3-8.2) g/dL Albumin 3.3 L (3.5-5.0) g/dL Urine Ketones (Negative) Microbiology - Last 24 Hours (Table) 09/28/18 15:39 Gram Stain - Preliminary Appendix Wound Culture - Preliminary 09/28/18 15:39 Anaerobic Culture - Preliminary Appendix 09/28/18 10:25 Urine Culture - Preliminary Urine,Voided
--- NOTE | 2018-09-29 13:55 | P.PN ---
Subjective This is a pleasant 58 years old female with no significant past medical history except for urolithiasis and hernia repair. Presents with right lower quadrant abdominal pain. Computed tomography scan of the abdomen showed perforated acute appendicitis with surrounding inflammation. A shunt was taken to operation room where she underwent Laparoscopic appendectomy. Patient seen postoperatively lying in bed, fully awake and oriented. Not in distress. Her pain in the surgical site is slightly uncontrolled and she asking a little bit more of pain medication. No nausea vomiting. She is tolerating liquid diet ( juice and water) . No bowel movement or passing gases yet. She is on pain medication, Lovenox for DVT prophylaxis as per primary surgical team. Also she is on Flagyl and Protonix. IV fluids with normal saline at 100 mL per hour. 09/29/2018 Patient status post emergent laparoscopic appendectomy for perforated appendix. Today is postop day #1. She has mild to moderate pain around the surgery site. However abdominal examination looks more benign. No nausea vomiting. No bowel movement T8. No chest pain or dyspnea. No fever. Rest of White is looks stable. Her leukocytosis is slightly worsened from 15.2 up to 19.9 K. Creatinine is 0.7. Electrolytes within normal limits. Once culture still pending. Patient remains on Zosyn for postoperative bacterial coverage. Infectious disease and pulmonary team R following the case as well. Objective - Vital Signs Vital signs: Vital Signs Temp 98.1 F 09/29/18 07:00 Pulse 73 09/29/18 07:00 Resp 16 09/29/18 07:00 BP 101/64 09/29/18 07:00 Pulse Ox 96 09/29/18 07:00 Intake & Output 09/28/18 09/29/18 09/29/18 18:59 06:59 18:59 Intake Total 1300 Output Total 3 80 20 Balance 1297 -80 -20 Weight 65.771 kg Intake: IV 1100 Amount of Fluid Infused ( 200 ml) Output: Drainage 80 20 Abdomen 80 20 Estimated Blood Loss 3 Other: Voiding Method Toilet # Voids 1 - Labs CBC & Chem 7: 09/29/18 05:56 09/29/18 05:56 Labs: Abnormal Lab Results - Last 24 Hours (Table) 09/29/18 09/29/18 Range/Units 05:56 05:56 WBC 19.9 H (3.8-10.6) k/uL RBC 3.65 L (3.80-5.40) m/uL Neutrophils # 18.6 H (1.3-7.7) k/uL Lymphocytes # 0.6 L (1.0-4.8) k/uL Glucose 154 H (74-99) mg/dL Total Protein 6.0 L (6.3-8.2) g/dL Albumin 3.3 L (3.5-5.0) g/dL Microbiology - Last 24 Hours (Table) 09/28/18 10:25 Urine Culture - Final Urine,Voided 09/28/18 15:39 Gram Stain - Preliminary Appendix Wound Culture - Preliminary 09/28/18 15:39 Anaerobic Culture - Preliminary Appendix Assessment and Plan Assessment: Perforated appendicitis, status post laparoscopic appendectomy Postoperative pain, on therapy Leukocytosis, secondary to above Abnormal urinalysis, mostly related to her appendicitis and dehydration. Plan: This is a pleasant 58 years old female, she is a status post laparoscopic appendectomy. Continue with DVT prophylaxis and pain management as per primary surgical team. Currently she is on Lovenox. She is on Protonix for GI prophylaxis. Infectious disease has been consulted. However we will change her Flagyl to zosyn pending culture results and to cover for gram-negative and anaerobic bacteria pending Infectious disease team final recommendation. Labs and medication were reviewed.. Continue same treatment. Continue with symptomatic treatment. Resume home medication. Monitor lytes and vitals. DVT and GI prophylaxis. Further recommendations of the clinical course of the patient Prognosis is guarded
[2018-09-29] MEDS: HYDROcodone/APAP 5-325MG 1 EACH TAB PO PRN (14:12)
[2018-09-30] MEDS: PIPERACILLIN-TAZOBACTAM 3.375 GM in SODIUM CHLORIDE 0.9% 100 ML IVPB SCH ×3 (00:06→17:00)
[2018-09-30] MEDS: SODIUM CHLORIDE 0.9% 1,000 ML IV SCH (00:08)
[2018-09-30] MEDS: METOCLOPRAMIDE 5 MG/ML 2 ML VIAL IVP SCH ×2 (04:16→09:27)
[2018-09-30] MEDS: KETOROLAC 30 MG/ML 1 ML VIAL IVP SCH ×2 (04:16→09:27)
--- NOTE | 2018-09-30 06:49 | CONS ---
CONSULTATION DATE OF SERVICE: 09/29/2018 REASON FOR CONSULTATION: Acute perforated appendicitis and antibiotic recommendation. HISTORY OF PRESENT ILLNESS: The patient is a 58-year-old female being admitted to the hospital for symptoms of abdominal pain that apparently the patient has for a few days before she was in the hospital. The patient said her symptoms started when she was in [place], however, she did not want to go to the ER there and decided to take a flight back home. The pain has been mostly in the lower abdominal area was also associated with some nausea, vomiting and initially diarrhea so she thought it was mostly a viral gastroenteritis. However, with persistent pain, patient described it to be more of a dull aching to sharp almost 7 to 8 out of 10 and no radiation with associated nausea and vomiting and fever. Apparently the patient did have a CT of abdomen and pelvis that was showing acute perforated appendicitis with surrounding inflammation. The patient subsequently was taken to the OR by Dr. Boyer and the patient is status post laparoscopic appendectomy. The patient did have cultures, which are currently showing gram-negative bacilli. Patient was started on Zosyn. Infectious Disease was consulted for further recommendation regarding antibiotic therapy. REVIEW OF SYSTEMS: Positive points have been mentioned in HPI. Rest of the 14 systems has been negative. PAST MEDICAL HISTORY: Hypothyroidism and nephrolithiasis. PAST SURGICAL HISTORY: Hernia repair, tonsillectomy, lithotripsy. SOCIAL HISTORY: No history of smoking. Occasionally drinks. No drug use. FAMILY HISTORY: Father history of hypertension. Mother history of hypertension and osteoarthritis. ALLERGIES: No known drug allergies. MEDICATION: Medications include the patient is currently on Tylenol, Hilger, Colace, Lovenox, Dilaudid, Toradol, Reglan, Narcan Zofran, Protonix, and Zosyn 3.375 grams q.8 hours. PHYSICAL EXAMINATION: On examination, blood pressure is 119/79 with a pulse of 66, temperature 97.6. She is 96% on room air. General description is a middle aged female lying in bed in no distress. No tachypnea or accessory muscle of respiration use. HEENT examination shows no pallor or scleral icterus. Oral mucous membrane is dry. No pharyngeal erythema or thrush. NECK: Trachea central. No thyromegaly. LUNGS: Unlabored breathing, clear to auscultation anteriorly. No wheeze or crackle. HEART: S1, S2. Regular rate and rhythm. No added sound. ABDOMEN: Soft, mildly tender. No guarding. No rigidity. No organomegaly. EXTREMITIES: No edema of feet. SKIN EXAMINATION: No rash or mass palpable. NEUROLOGICALLY: The patient is awake, alert and oriented x3. Mood and affect normal. LABS: Hemoglobin 11.4, white count 19.9 with a BUN of 12, creatinine 0.77. Electrolytes have been normal. Abdominal culture with gram-negative. DIAGNOSTIC IMPRESSION AND PLAN: Patient with acute perforated appendicitis, status post appendectomy with secondary peritonitis. The likely organism with gram negative both aerobes and anaerobes in this patient who has not been on antibiotic in the recent past could be sensitive pathogen. PLAN: 1. Zosyn 3.375 grams q.8 hours should provide adequate coverage for both aerobic and anaerobic gram-negative with . 2. IV fluid. 3. We will follow her clinical course and culture very closely and adjust antibiotic further if needed. Thank you for this consultation. Will follow this patient along with you. MMODL / IJN: [id number] /
[2018-09-30 07:20] LABS: Basophils # (A) 0.1 k/uL (0-0.2); Basophils % (A) 0 %; Eosinophils # (A) 0.1 k/uL (0-0.7); Eosinophils % (A) 1 %; HCT 32.4 % (34.0-46.0); HGB 10.6 gm/dL (11.4-16.0); Lymphocytes # (A) 1.4 k/uL (1.0-4.8); Lymphocytes % (A) 9 %; MCH 31.7 pg (25.0-35.0); MCHC 32.8 g/dL (31.0-37.0); MCV 96.9 fL (80.0-100.0); Monocytes # (A) 0.8 k/uL (0-1.0); Monocytes % (A) 5 %; Neutrophils # (A) 13.1 k/uL (1.3-7.7); Neutrophils % (A) 83 %; Platelet Count 289 k/uL (150-450); RBC 3.35 m/uL (3.80-5.40); RDW 12.6 % (11.5-15.5); WBC 15.8 k/uL (3.8-10.6)
[2018-09-30 07:29] LABS: Calcium 9.2 mg/dL (8.4-10.2); Potassium 4.7 mmol/L (3.5-5.1)
[2018-09-30] MEDS: PANTOPRAZOLE 40 MG/10 ML VIAL IV SCH (09:26)
[2018-09-30] MEDS: ENOXAPARIN 40 MG/0.4 ML SYRINGE SQ SCH (09:27)
[2018-09-30] MEDS: DOCUSATE 100 MG CAP PO SCH ×2 (09:27→20:27)
[2018-09-30] MEDS ORDERED: METOCLOPRAMIDE 5 MG/ML 2 ML VIAL IVP PRN (10:46)
--- NOTE | 2018-09-30 10:49 | P.PN ---
Subjective Progress Note Date: 09/30/18 CHIEF COMPLAINT: Abdominal pain HISTORY OF PRESENT ILLNESS: Patient is status post laparoscopic appendectomy for acute ruptured appendicitis. Patient states her pain is tolerable at this time. She is tolerating clear liquids. Passing flatus. +BM. WBC 15.8 today. PHYSICAL EXAM: VITAL SIGNS: Currently stable. GENERAL: Well-developed in no acute distress. HEENT: No sclera icterus. Extraocular movements grossly intact. Moist buccal mucosa. Head is atraumatic, normocephalic. Hears conversational speech. No nasal drainage. NECK: Supple without lymphadenopathy. CHEST: Non-labored respirations and equal bilateral excursions. CARDIOVASCULAR: Regular rate with regular rhythm. Palpable 2+ radial pulses. ABDOMEN: Soft. Nondistended. THALIA drain to right lower quadrant with cloudy serous drainage. Incisions dry and intact without drainage. MUSCULOSKELETAL: No clubbing, cyanosis or edema. NEUROLOGIC: No focal or lateralizing signs. Cranial nerves II through XII grossly intact. PSYCH: Appropriate affect. Alert and oriented to person, place and time. SKIN: Well perfused. Good skin turgor. ASSESSMENT: 1. Acute ruptured appendicitis, status post laparoscopic appendectomy 2. Leukocytosis PLAN: 1. May stop scheduled Reglan 2. Advance diet to full liquid 3. Continue antibiotics. Monitor CBC. Dr. Saul on consult for infectious disease 4. Increase activity as tolerated Nurse practitioner note has been reviewed by physician. Signing provider agrees with the documented findings, assessment, and plan of care. Objective - Vital Signs Vital signs: Vital Signs Temp 98.4 F 09/30/18 07:00 Pulse 69 09/30/18 07:00 Resp 16 09/30/18 07:00 BP 139/85 09/30/18 07:00 Pulse Ox 95 09/30/18 07:00 Intake & Output 09/29/18 09/30/18 09/30/18 18:59 06:59 18:59 Intake Total 800 1100 320 Output Total 40 60 30 Balance 760 1040 290 Intake: IV 800 Sodium Chloride 0.9% 1, 800 000 ml @ 100 mls/hr IV . Q10H [facility] Rx#:[id number] Intake, IV Titration 1100 Amount Piperacillin-Tazobactam 3 100 .375 gm In Sodium Chloride 0.9% 100 ml @ 25 mls/hr IVPB Q8HR [facility] Rx# :[id number] Sodium Chloride 0.9% 1, 1000 000 ml @ 100 mls/hr IV . Q10H [facility] Rx#:[id number] Oral 320 Output: Drainage 40 60 30 Abdomen 40 60 30 Other: Voiding Method Toilet # Voids 2 3 - Labs CBC & Chem 7: 09/30/18 06:37 09/30/18 06:37 Labs: Abnormal Lab Results - Last 24 Hours (Table) 09/30/18 09/30/18 Range/Units 06:37 06:37 WBC 15.8 H (3.8-10.6) k/uL RBC 3.35 L (3.80-5.40) m/uL Hgb 10.6 L (11.4-16.0) gm/dL Hct 32.4 L (34.0-46.0) % Neutrophils # 13.1 H (1.3-7.7) k/uL Chloride 109 H (98-107) mmol/L Microbiology - Last 24 Hours (Table) 09/28/18 15:39 Gram Stain - Preliminary Appendix Wound Culture - Preliminary Gram Neg Bacilli 09/28/18 12:48 Blood Culture - Preliminary Blood No Growth after 24 hours 09/28/18 10:25 Urine Culture - Final Urine,Voided
--- NOTE | 2018-09-30 10:58 | PN ---
PROGRESS NOTE A 58-year-old female seen in consultation 2 days ago. She was in the emergency room having abdominal pain. She had texted me the night before having just arrived back from [place] on Friday evening. She had been having abdominal pain since Friday of the preceding week. It turns out that the CT scan that I ordered showed a ruptured acute appendicitis. She went to the operating room on Friday, Dr. Boyer laparoscopically removed the appendix. There was a drain in place. She has been draining purulent looking material. The wound cultures did grow out some gram-negative bacilli, yet to be fully identified. She remains on Zosyn. Today, she is feeling a bit better. She has had a bowel movement. She did sleep better last night. The pain is reasonable. Certainly concerned about abdominal sepsis at this point still. Her vital signs appear relatively stable. Temperature 98.4 heart rate 69, respiratory rate 16, blood pressure 139/85, mean 103, room air saturation 95%. Appears in no acute distress. HEENT examination is grossly unremarkable. Mucous membranes are moist. NECK: Supple. Full range of motion. No adenopathy. Cardiovascular examination reveals regular rhythm and rate. S1, S2 normal. Lungs are clear. Breath sounds are equal. Abdomen is soft. There is some tenderness around the drain site. Extremities are intact. No cyanosis, clubbing, or edema. Skin without rash. Neurologic examination is brief but nonfocal. LABS: Labs are reviewed. White count 15.8 down from 19.9, hemoglobin 10.6, hematocrit 32.4, platelet count normal. Sodium 139, potassium 4.7, chloride 109, CO2 of 25. BUN and creatinine were 13 and 0.91. H pylori antibody test was normal. Microbiology is reviewed. The gram-negative bacilli has not been yet identified. No recent chest x-ray. Medications are reviewed. ASSESSMENT: Postoperative day #1, status post laparoscopic appendectomy for ruptured acute appendicitis. PLAN: The patient is doing reasonably well. We will await the results of the identification of the gram-negative bacilli in the wound culture. She remains on Zosyn and fluids. Clinically, she looks a bit better. The patient's pain is well controlled. I have encouraged her to continue to use incentive spirometer. No additional recommendations are made. Apparently, diet has been advanced. We will continue to follow. Prognosis is guarded. MMODL / IJN: [id number] /
--- NOTE | 2018-09-30 15:40 | P.PN ---
Subjective This is a pleasant 58 years old female with no significant past medical history except for urolithiasis and hernia repair. Presents with right lower quadrant abdominal pain. Computed tomography scan of the abdomen showed perforated acute appendicitis with surrounding inflammation. A shunt was taken to operation room where she underwent Laparoscopic appendectomy. Patient seen postoperatively lying in bed, fully awake and oriented. Not in distress. Her pain in the surgical site is slightly uncontrolled and she asking a little bit more of pain medication. No nausea vomiting. She is tolerating liquid diet ( juice and water) . No bowel movement or passing gases yet. She is on pain medication, Lovenox for DVT prophylaxis as per primary surgical team. Also she is on Flagyl and Protonix. IV fluids with normal saline at 100 mL per hour. 09/29/2018 Patient status post emergent laparoscopic appendectomy for perforated appendix. Today is postop day #1. She has mild to moderate pain around the surgery site. However abdominal examination looks more benign. No nausea vomiting. No bowel movement T8. No chest pain or dyspnea. No fever. Rest of White is looks stable. Her leukocytosis is slightly worsened from 15.2 up to 19.9 K. Creatinine is 0.7. Electrolytes within normal limits. Once culture still pending. Patient remains on Zosyn for postoperative bacterial coverage. Infectious disease and pulmonary team R following the case as well. 09/30/2018 Patient feels better with less abdominal pain and tolerating diet well with no nausea or vomiting. Wound looks close with no surrounding cellulitis but there is minimal purulent discharge, drain is in place. Patient continue on Zosyn. Wound culture showing gram-negative bacilli final result is pending. Leukocytosis improvement from 19.9 down to 15.8 K. Barrientos flaps were reviewed and are unremarkable except for mild anemia at 10.6 Objective - Vital Signs Vital signs: Vital Signs Temp 97.6 F 09/30/18 14:41 Pulse 76 09/30/18 14:41 Resp 20 09/30/18 14:41 BP 160/89 09/30/18 14:41 Pulse Ox 97 09/30/18 14:41 Intake & Output 09/29/18 09/30/18 09/30/18 18:59 06:59 18:59 Intake Total 800 1100 320 Output Total 40 60 30 Balance 760 1040 290 Intake: IV 800 Sodium Chloride 0.9% 1, 800 000 ml @ 100 mls/hr IV . Q10H [facility] Rx#:[id number] Intake, IV Titration 1100 Amount Piperacillin-Tazobactam 3 100 .375 gm In Sodium Chloride 0.9% 100 ml @ 25 mls/hr IVPB Q8HR [facility] Rx# :[id number] Sodium Chloride 0.9% 1, 1000 000 ml @ 100 mls/hr IV . Q10H [facility] Rx#:[id number] Oral 320 Output: Drainage 40 60 30 Abdomen 40 60 30 Other: Voiding Method Toilet # Voids 2 3 1 - Exam GENERAL: The patient is alert and oriented x3, not in any acute distress. Well developed, well nourished. HEENT: Pupils are round and equally reacting to light. EOMI. No scleral icterus. No conjunctival pallor. Normocephalic, atraumatic. No pharyngeal erythema. No thyromegaly. CARDIOVASCULAR: S1 and S2 present. No murmurs, rubs, or gallops. PULMONARY: Chest is clear to auscultation, no wheezing or crackles. -ABDOMEN: Soft, nontender, nondistended, normoactive bowel sounds. No palpable organomegaly. Right lower quadrant surgical wound is clean . Minimal purulent discharge from the wound MUSCULOSKELETAL: No joint swelling or deformity. EXTREMITIES: No cyanosis, clubbing, or pedal edema. NEUROLOGICAL: Gross neurological examination did not reveal any focal deficits. SKIN: No rashes. - Labs CBC & Chem 7: 09/30/18 06:37 09/30/18 06:37 Labs: Abnormal Lab Results - Last 24 Hours (Table) 09/30/18 09/30/18 Range/Units 06:37 06:37 WBC 15.8 H (3.8-10.6) k/uL RBC 3.35 L (3.80-5.40) m/uL Hgb 10.6 L (11.4-16.0) gm/dL Hct 32.4 L (34.0-46.0) % Neutrophils # 13.1 H (1.3-7.7) k/uL Chloride 109 H (98-107) mmol/L Microbiology - Last 24 Hours (Table) 09/28/18 12:48 Blood Culture - Preliminary Blood No Growth after 48 hours 09/28/18 15:39 Gram Stain - Preliminary Appendix Wound Culture - Preliminary Gram Neg Bacilli 09/28/18 10:25 Urine Culture - Final Urine,Voided Assessment and Plan Assessment: Perforated appendicitis, status post laparoscopic appendectomy Postoperative pain, on therapy Leukocytosis, secondary to above Abnormal urinalysis, mostly related to her appendicitis and dehydration. Plan: This is a pleasant 58 years old female, she is a status post laparoscopic appendectomy. Continue with DVT prophylaxis and pain management as per primary surgical team. Currently she is on Lovenox. She is on Protonix for GI prophylaxis. Infectious disease has been consulted. However we will change her Flagyl to zosyn pending culture results and to cover for gram-negative and anaerobic bacteria pending Infectious disease team final recommendation. Labs and medication were reviewed.. Continue same treatment. Continue with symptomatic treatment. Resume home medication. Monitor lytes and vitals. DVT and GI prophylaxis. Further recommendations of the clinical course of the patient Prognosis is guarded
[2018-09-30] MEDS: HYDROcodone/APAP 5-325MG 1 EACH TAB PO PRN (19:23)
--- NOTE | 2018-09-30 23:28 | PN ---
PROGRESS NOTE DATE OF SERVICE: 09/30/2018. REASON FOR FOLLOWUP: Abdominal abscess from ruptured appendicitis. INTERVAL HISTORY: The patient is afebrile. She is breathing comfortably. The patient's abdominal pain has improved. She has been tolerating a clear liquid diet. Denies having any chest pain or shortness of breath or cough. Has been passing some gas but no bowel movement. PHYSICAL EXAMINATION: Blood pressure 143/78 with a pulse of 86, temperature 98.5. She is 95% on room air. General description is a middle-aged female up in a chair in no distress. RESPIRATORY SYSTEM: Unlabored breathing. Clear to auscultation anteriorly. HEART: S1, S2. Regular rate and rhythm. ABDOMEN: Soft. No tenderness. No guarding or rigidity. EXTREMITIES: No edema of the feet. LABS: Hemoglobin is 10.6, white count of 15.8 with a BUN of 13, creatinine 0.91. Abdominal culture with E coli that is a sensitive pathogen. DIAGNOSTIC IMPRESSION AND PLAN: Patient with abdominal abscess and secondary peritonitis from ruptured appendicitis, status post appendectomy. The patient at this time is to continue Zosyn with a plan to finish therapy with oral , as the patient is continuing to improve and her oral intake improves. Close outpatient followup. Continue with supportive care. MMODL / IJN: [id number] /
[2018-10-01] MEDS: PIPERACILLIN-TAZOBACTAM 3.375 GM in SODIUM CHLORIDE 0.9% 100 ML IVPB SCH ×2 (00:14→08:52)
[2018-10-01] MEDS: ACETAMINOPHEN TAB 325 MG TAB PO PRN ×3 (05:34→16:06)
[2018-10-01 08:37] LABS: HGB 12.2 gm/dL (11.4-16.0); MCH 31.3 pg (25.0-35.0); MCHC 32.2 g/dL (31.0-37.0); MCV 97.3 fL (80.0-100.0); Mean Platelet Volume 7.1; Platelet Count 367 k/uL (150-450); RDW 12.6 % (11.5-15.5); WBC 17.1 k/uL (3.8-10.6)
[2018-10-01] MEDS: ENOXAPARIN 40 MG/0.4 ML SYRINGE SQ SCH (08:51)
[2018-10-01] MEDS: PANTOPRAZOLE 40 MG/10 ML VIAL IV SCH (08:51)
[2018-10-01] MEDS: DOCUSATE 100 MG CAP PO SCH ×2 (08:52→22:12)
[2018-10-01 09:07] LABS: Basophils # (M) 0.17 k/uL (0-0.2); Eosinophils # (M) 0.51 k/uL (0-0.7); Lymphocytes # (M) 2.22 k/uL (1.0-4.8); Monocytes # (M) 1.03 k/uL (0-1.0); Myelocytes # (M) 0.51 k/uL (0); Myelocytes % 3 %; Neutrophils % (M) 76 %; Nucleated Red Blood Cells 0 /100 WBC (0-0); Total Cells Counted 200
[2018-10-01 09:08] LABS: Poikilocytosis (M) Present
--- NOTE | 2018-10-01 09:29 | PN ---
PROGRESS NOTE DATE OF SERVICE: October 01, 2018 This is a 58-year-old female. She was seen in consultation 3 days ago. She was in the emergency room with abdominal pain. The patient was discovered on CT scan to have a ruptured acute appendicitis. She went to the operating room on Friday. Dr. Boyer removed the appendix laparoscopically. She did have some abdominal sepsis and intraabdominal abscess. He left a drain in. This is continuing to drain a purulent looking material. It did grow out some Escherichia coli. The patient is on appropriate antibiotic. I read the Infectious Disease note from yesterday. The plan was to switch her eventually to an oral antibiotic when she is discharged home. Will allow Dr. Boyer to decide when that is appropriate. She is feeling better. She took some narcotics last night for pain control and she had some bad dreams. She would rather just use Tylenol. Other than that, she is doing well. Denies any fever or chills. Current vital signs are reviewed. Temperature 98.7, heart rate 74, respiratory rate 16, blood pressure 130/76, mean 94, saturations 92% on room air. Appears in no acute distress. HEENT examination is grossly unremarkable. Mucous membranes are moist. NECK: Supple. Full range of motion. No adenopathy or thyromegaly. Cardiovascular examination reveals regular rhythm rate. S1, S2 normal. Lungs reveal clear breath sounds. No wheezes or rhonchi. Abdomen is soft. Mild tenderness. Extremities are intact. No cyanosis, clubbing, or edema. Skin without rash. Neurologic examination is nonfocal. Labs are reviewed. White count back up to 17.1, hemoglobin 12.2, hematocrit 38, platelet count 367,000. No additional labs are noted. Microbiology is reviewed. E coli from the wound. Medications are reviewed. She is getting Zosyn as an antibiotic. The E coli is sensitive to Zosyn. ASSESSMENT: Postoperative day #3, status post laparoscopic appendectomy for ruptured acute appendicitis. PLAN: The patient is doing well. We will continue to follow. The patient remains on Zosyn. No additional recommendations are made. We will continue to follow. Prognosis is guarded. E coli was found in the sampling of the abdominal abscess. Additional recommendations and suggestions are forthcoming. We will continue to follow. No additional recommendations are made. MMODL / IJN: [id number] /
--- NOTE | 2018-10-01 11:33 | P.PN ---
Subjective Progress Note Date: 10/01/18 CHIEF COMPLAINT: Abdominal pain HISTORY OF PRESENT ILLNESS: Patient is status post laparoscopic appendectomy for acute ruptured appendicitis. Patient states her pain is tolerable at this time. She is tolerating diet. Passing flatus. +BM. WBC 17.1 today. PHYSICAL EXAM: VITAL SIGNS: Currently stable. GENERAL: Well-developed in no acute distress. HEENT: No sclera icterus. Extraocular movements grossly intact. Moist buccal mucosa. Head is atraumatic, normocephalic. Hears conversational speech. No nasal drainage. NECK: Supple without lymphadenopathy. CHEST: Non-labored respirations and equal bilateral excursions. CARDIOVASCULAR: Regular rate with regular rhythm. Palpable 2+ radial pulses. ABDOMEN: Soft. Nondistended. THALIA drain to right lower quadrant with cloudy serous drainage. Incisions dry and intact without drainage. MUSCULOSKELETAL: No clubbing, cyanosis or edema. NEUROLOGIC: No focal or lateralizing signs. Cranial nerves II through XII grossly intact. PSYCH: Appropriate affect. Alert and oriented to person, place and time. SKIN: Well perfused. Good skin turgor. ASSESSMENT: 1. Acute ruptured appendicitis, status post laparoscopic appendectomy 2. Leukocytosis PLAN: 1. Advance diet 2. Continue THALIA drain 3. Hold discharge today secondary to jump in WBC. Repeat in AM 4. Continue antibiotics. Dr. Saul on consult for infectious disease Nurse practitioner note has been reviewed by physician. Signing provider agrees with the documented findings, assessment, and plan of care. Objective - Vital Signs Vital signs: Vital Signs Temp 98.1 F 10/01/18 09:08 Pulse 90 10/01/18 09:08 Resp 16 10/01/18 09:08 BP 135/79 10/01/18 09:08 Pulse Ox 96 10/01/18 09:08 Intake & Output 09/30/18 10/01/18 10/01/18 18:59 06:59 18:59 Intake Total 320 890 Output Total 30 20 Balance 290 870 Intake: Oral 320 890 Output: Drainage 30 20 Abdomen 30 20 Other: # Voids 1 2 - Labs CBC & Chem 7: 10/01/18 07:46 09/30/18 06:37 Labs: Abnormal Lab Results - Last 24 Hours (Table) 10/01/18 Range/Units 07:46 WBC 17.1 H (3.8-10.6) k/uL Neutrophils # (Manual) 13.00 H (1.3-7.7) k/uL Monocytes # (Manual) 1.03 H (0-1.0) k/uL Myelocytes # (Manual) 0.51 H (0) k/uL Microbiology - Last 24 Hours (Table) 09/28/18 15:39 Gram Stain - Final Appendix Wound Culture - Final Escherichia coli 09/28/18 12:48 Blood Culture - Preliminary Blood No Growth after 48 hours
[2018-10-01] MEDS: AMPICILLIN-SULBACTAM 3 GM in SODIUM CHLORIDE 0.9% 100 ML IVPB SCH ×2 (13:15→18:02)
[2018-10-01] MEDS: metroNIDAZOLE 500 MG TAB PO SCH ×2 (15:17→22:12)
[2018-10-01] MEDS: HYDROcodone/APAP 5-325MG 1 EACH TAB PO PRN (22:12)
--- NOTE | 2018-10-01 23:05 | PN ---
PROGRESS NOTE DATE OF SERVICE: 10/01/2018. REASON FOR FOLLOWUP: Ruptured appendicitis with abdominal abscess. INTERVAL HISTORY: The patient is currently afebrile. He is breathing comfortably. Denies any chest pain shortness with cough. Abdominal pain has improved. She did have small bowel movement. No blood or mucus in the stool. PHYSICAL EXAMINATION: Blood pressure 145/84 with a pulse of 74, temperature of 99, she is 94% on room air. GENERAL DESCRIPTION: The patient is middle aged female up in the bed in no distress. RESPIRATORY SYSTEM: Unlabored breathing. Clear to auscultation anteriorly. HEART: S1, S2. Regular rate and rhythm. ABDOMEN: Soft, no tenderness. EXTREMITIES: No edema of the feet. LABS: White count slightly up to 17.1 today. DIAGNOSTIC IMPRESSION AND PLAN: Patient with ruptured appendicitis with abdominal abscess status post appendectomy. Culture with E coli and with antibiotic switched to Unasyn and Flagyl. Repeat CBC tomorrow. The patient's white count did improve, hopefully finish therapy with oral antibiotic. Continue supportive care. MMODL / IJN: [id number] /
[2018-10-02] MEDS: AMPICILLIN-SULBACTAM 3 GM in SODIUM CHLORIDE 0.9% 100 ML IVPB SCH ×4 (00:52→17:25)
--- NOTE | 2018-10-02 01:06 | P.PN ---
Subjective This is a pleasant 58 years old female with no significant past medical history except for urolithiasis and hernia repair. Presents with right lower quadrant abdominal pain. Computed tomography scan of the abdomen showed perforated acute appendicitis with surrounding inflammation. A shunt was taken to operation room where she underwent Laparoscopic appendectomy. Patient seen postoperatively lying in bed, fully awake and oriented. Not in distress. Her pain in the surgical site is slightly uncontrolled and she asking a little bit more of pain medication. No nausea vomiting. She is tolerating liquid diet ( juice and water) . No bowel movement or passing gases yet. She is on pain medication, Lovenox for DVT prophylaxis as per primary surgical team. Also she is on Flagyl and Protonix. IV fluids with normal saline at 100 mL per hour. 09/29/2018 Patient status post emergent laparoscopic appendectomy for perforated appendix. Today is postop day #1. She has mild to moderate pain around the surgery site. However abdominal examination looks more benign. No nausea vomiting. No bowel movement T8. No chest pain or dyspnea. No fever. Rest of White is looks stable. Her leukocytosis is slightly worsened from 15.2 up to 19.9 K. Creatinine is 0.7. Electrolytes within normal limits. Once culture still pending. Patient remains on Zosyn for postoperative bacterial coverage. Infectious disease and pulmonary team R following the case as well. 09/30/2018 Patient feels better with less abdominal pain and tolerating diet well with no nausea or vomiting. Wound looks close with no surrounding cellulitis but there is minimal purulent discharge, drain is in place. Patient continue on Zosyn. Wound culture showing gram-negative bacilli final result is pending. Leukocytosis improvement from 19.9 down to 15.8 K. Barrientos flaps were reviewed and are unremarkable except for mild anemia at 10.6 10/01/18 pt feels better , abdominal pain is improving ,no chest pain or dyspnea, pt is mobile , tolerating diet, her leukocytosis is improving. vital stable, pt is been followed up by many learning consultant including pulmonary and ID disease. Objective - Vital Signs Vital signs: Vital Signs Temp 99 F 10/01/18 15:00 Pulse 74 10/01/18 15:00 Resp 16 10/01/18 15:00 BP 145/84 10/01/18 15:00 Pulse Ox 94 L 10/01/18 15:00 Intake & Output 10/01/18 10/01/18 10/02/18 06:59 18:59 06:59 Intake Total 890 828 Output Total 20 Balance 870 828 Intake: Oral 890 828 Output: Drainage 20 Abdomen 20 Other: # Voids 2 1 - Exam GENERAL: The patient is alert and oriented x3, not in any acute distress. Well developed, well nourished. HEENT: Pupils are round and equally reacting to light. EOMI. No scleral icterus. No conjunctival pallor. Normocephalic, atraumatic. No pharyngeal erythema. No thyromegaly. CARDIOVASCULAR: S1 and S2 present. No murmurs, rubs, or gallops. PULMONARY: Chest is clear to auscultation, no wheezing or crackles. -ABDOMEN: Soft, nontender, nondistended, normoactive bowel sounds. No palpable organomegaly. Right lower quadrant surgical wound is clean . Minimal purulent discharge from the wound MUSCULOSKELETAL: No joint swelling or deformity. EXTREMITIES: No cyanosis, clubbing, or pedal edema. NEUROLOGICAL: Gross neurological examination did not reveal any focal deficits. SKIN: No rashes. - Labs CBC & Chem 7: 10/01/18 07:46 09/30/18 06:37 Labs: Abnormal Lab Results - Last 24 Hours (Table) 10/01/18 Range/Units 07:46 WBC 17.1 H (3.8-10.6) k/uL Neutrophils # (Manual) 13.00 H (1.3-7.7) k/uL Monocytes # (Manual) 1.03 H (0-1.0) k/uL Myelocytes # (Manual) 0.51 H (0) k/uL Microbiology - Last 24 Hours (Table) 09/28/18 15:39 Anaerobic Culture - Final Appendix Anaerobic Gm Negative Bacilli 09/28/18 12:48 Blood Culture - Preliminary Blood No Growth after 72 hours 09/28/18 15:39 Gram Stain - Final Appendix Wound Culture - Final Escherichia coli Assessment and Plan Assessment: Perforated appendicitis, status post laparoscopic appendectomy Postoperative pain, on therapy Leukocytosis, secondary to above Abnormal urinalysis, mostly related to her appendicitis and dehydration. Plan: This is a pleasant 58 years old female, she is a status post laparoscopic appendectomy. Continue with DVT prophylaxis and pain management as per primary surgical team. Currently she is on Lovenox. She is on Protonix for GI prophylaxis. Infectious disease has been consulted. However we will change her Flagyl to zosyn pending culture results and to cover for gram-negative and anaerobic bacteria pending Infectious disease team final recommendation. Labs and medication were reviewed.. Continue same treatment. Continue with symptomatic treatment. Resume home medication. Monitor lytes and vitals. DVT and GI prophylaxis. Further recommendations of the clinical course of the patient Prognosis is guarded
[2018-10-02] MEDS: ACETAMINOPHEN TAB 325 MG TAB PO PRN ×3 (05:08→21:00)
[2018-10-02] MEDS: DOCUSATE 100 MG CAP PO SCH ×2 (08:39→21:00)
[2018-10-02] MEDS: PANTOPRAZOLE 40 MG/10 ML VIAL IV SCH (08:39)
[2018-10-02] MEDS: metroNIDAZOLE 500 MG TAB PO SCH ×3 (08:39→21:00)
[2018-10-02] MEDS: ENOXAPARIN 40 MG/0.4 ML SYRINGE SQ SCH (08:40)
[2018-10-02 09:43] LABS: HCT 40.3 % (34.0-46.0); HGB 12.9 gm/dL (11.4-16.0); MCH 30.7 pg (25.0-35.0); MCHC 32.1 g/dL (31.0-37.0); MCV 95.9 fL (80.0-100.0); Mean Platelet Volume 6.9; Platelet Count 419 k/uL (150-450); RDW 12.5 % (11.5-15.5); WBC 18.5 k/uL (3.8-10.6)
[2018-10-02 10:42] LABS: Band Neutrophils % 2 %; Eosinophils # (M) 0.37 k/uL (0-0.7); Lymphocytes # (M) 2.22 k/uL (1.0-4.8); Metamyelocytes # (M) 0.37 k/uL (0); Metamyelocytes % 2 %; Monocytes # (M) 1.11 k/uL (0-1.0); Myelocytes # (M) 0.74 k/uL (0); Myelocytes % 4 %; Neutrophils % (M) 74 %; Nucleated Red Blood Cells 0 /100 WBC (0-0); Total Cells Counted 200
--- NOTE | 2018-10-02 11:36 | P.PN ---
Subjective This is a pleasant 58 years old female with no significant past medical history except for urolithiasis and hernia repair. Presents with right lower quadrant abdominal pain. Computed tomography scan of the abdomen showed perforated acute appendicitis with surrounding inflammation. A shunt was taken to operation room where she underwent Laparoscopic appendectomy. Patient seen postoperatively lying in bed, fully awake and oriented. Not in distress. Her pain in the surgical site is slightly uncontrolled and she asking a little bit more of pain medication. No nausea vomiting. She is tolerating liquid diet ( juice and water) . No bowel movement or passing gases yet. She is on pain medication, Lovenox for DVT prophylaxis as per primary surgical team. Also she is on Flagyl and Protonix. IV fluids with normal saline at 100 mL per hour. 09/29/2018 Patient status post emergent laparoscopic appendectomy for perforated appendix. Today is postop day #1. She has mild to moderate pain around the surgery site. However abdominal examination looks more benign. No nausea vomiting. No bowel movement T8. No chest pain or dyspnea. No fever. Rest of White is looks stable. Her leukocytosis is slightly worsened from 15.2 up to 19.9 K. Creatinine is 0.7. Electrolytes within normal limits. Once culture still pending. Patient remains on Zosyn for postoperative bacterial coverage. Infectious disease and pulmonary team R following the case as well. 09/30/2018 Patient feels better with less abdominal pain and tolerating diet well with no nausea or vomiting. Wound looks close with no surrounding cellulitis but there is minimal purulent discharge, drain is in place. Patient continue on Zosyn. Wound culture showing gram-negative bacilli final result is pending. Leukocytosis improvement from 19.9 down to 15.8 K. Barrientos flaps were reviewed and are unremarkable except for mild anemia at 10.6 10/01/18 pt feels better , abdominal pain is improving ,no chest pain or dyspnea, pt is mobile , tolerating diet, her leukocytosis is improving. vital stable, pt is been followed up by many senior application security consultant including pulmonary and ID disease. 10/02/2018 Patient still have some minimal pain around her surgery site, however clinically she is doing well. Vitas is stable with her leukocytosis got worse today up to 18.5 K. Culture showing E. coli and an aerobic gram-negative bacilli pending final culture results. Infectious disease follow-up is appreciated, currently she is on Flagyl and Unasyn. Objective - Vital Signs Vital signs: Vital Signs Temp 97.8 F 10/02/18 08:44 Pulse 78 10/02/18 08:44 Resp 16 10/02/18 08:44 BP 123/90 10/02/18 08:44 Pulse Ox 96 10/02/18 08:44 Intake & Output 10/01/18 10/02/18 10/02/18 18:59 06:59 18:59 Intake Total 828 500 Balance 828 500 Intake: Intake, IV Titration 200 Amount Ampicillin-Sulbactam 3 gm 200 In Sodium Chloride 0.9% 100 ml @ 200 mls/hr IVPB Q6HR [facility] Rx#:[id number] Oral 828 300 Other: # Voids 1 2 - Exam GENERAL: The patient is alert and oriented x3, not in any acute distress. Well developed, well nourished. HEENT: Pupils are round and equally reacting to light. EOMI. No scleral icterus. No conjunctival pallor. Normocephalic, atraumatic. No pharyngeal erythema. No thyromegaly. CARDIOVASCULAR: S1 and S2 present. No murmurs, rubs, or gallops. PULMONARY: Chest is clear to auscultation, no wheezing or crackles. -ABDOMEN: Soft, nontender, nondistended, normoactive bowel sounds. No palpable organomegaly. Right lower quadrant surgical wound is clean . Minimal purulent discharge from the wound MUSCULOSKELETAL: No joint swelling or deformity. EXTREMITIES: No cyanosis, clubbing, or pedal edema. NEUROLOGICAL: Gross neurological examination did not reveal any focal deficits. SKIN: No rashes. - Labs CBC & Chem 7: 10/02/18 08:17 09/30/18 06:37 Labs: Abnormal Lab Results - Last 24 Hours (Table) 10/02/18 Range/Units 08:17 WBC 18.5 H (3.8-10.6) k/uL Neutrophils # (Manual) 14.00 H (1.3-7.7) k/uL Monocytes # (Manual) 1.11 H (0-1.0) k/uL Metamyelocytes # (Man) 0.37 H (0) k/uL Myelocytes # (Manual) 0.74 H (0) k/uL Microbiology - Last 24 Hours (Table) 09/28/18 15:39 Anaerobic Culture - Final Appendix Anaerobic Gm Negative Bacilli 09/28/18 12:48 Blood Culture - Preliminary Blood No Growth after 72 hours Assessment and Plan Assessment: Perforated appendicitis, status post laparoscopic appendectomy Postoperative pain, on therapy Leukocytosis, secondary to above Abnormal urinalysis, mostly related to her appendicitis and dehydration. Plan: This is a pleasant 58 years old female, she is a status post laparoscopic appendectomy. Continue with DVT prophylaxis and pain management as per primary surgical team. Currently she is on Lovenox. She is on Protonix for GI prophylaxis. Infectious disease has been consulted. However we will change her Flagyl to zosyn pending culture results and to cover for gram-negative and anaerobic bacteria pending Infectious disease team final recommendation. Labs and medication were reviewed.. Continue same treatment. Continue with symptomatic treatment. Resume home medication. Monitor lytes and vitals. DVT and GI prophylaxis. Further recommendations of the clinical course of the patient Prognosis is guarded
--- NOTE | 2018-10-02 12:31 | P.PN ---
Subjective Progress Note Date: 10/02/18 CHIEF COMPLAINT: Abdominal pain HISTORY OF PRESENT ILLNESS: Patient is status post laparoscopic appendectomy for acute ruptured appendicitis. Patient states her pain is tolerable at this time. She is tolerating diet. Passing flatus. +BM. Infectious disease is following. She remains on Unasyn and Flagyl. WBC has increased to 18.5 today from 17.1. Clinically, the patient is doing well. She is afebrile. PHYSICAL EXAM: VITAL SIGNS: Currently stable. GENERAL: Well-developed in no acute distress. HEENT: No sclera icterus. Extraocular movements grossly intact. Moist buccal mucosa. Head is atraumatic, normocephalic. Hears conversational speech. No nasal drainage. NECK: Supple without lymphadenopathy. CHEST: Non-labored respirations and equal bilateral excursions. CARDIOVASCULAR: Regular rate with regular rhythm. Palpable 2+ radial pulses. ABDOMEN: Soft. Nondistended. THALIA drain to right lower quadrant with cloudy serous drainage. Incisions dry and intact without drainage. MUSCULOSKELETAL: No clubbing, cyanosis or edema. NEUROLOGIC: No focal or lateralizing signs. Cranial nerves II through XII grossly intact. PSYCH: Appropriate affect. Alert and oriented to person, place and time. SKIN: Well perfused. Good skin turgor. ASSESSMENT: 1. Acute ruptured appendicitis, status post laparoscopic appendectomy 2. Leukocytosis PLAN: 1. Continue current diet 2. Continue THALIA drain 3. Hold discharge today secondary to increase in WBC. Repeat in a.m. 4. Computed tomography scan will be performed tomorrow if white count continues to climb. 5. Continue antibiotics. Dr. Saul is following. Nurse practitioner note has been reviewed by physician. Signing provider agrees with the documented findings, assessment, and plan of care. Objective - Vital Signs Vital signs: Vital Signs Temp 97.8 F 10/02/18 08:44 Pulse 78 10/02/18 08:44 Resp 16 10/02/18 08:44 BP 123/90 10/02/18 08:44 Pulse Ox 96 10/02/18 08:44 Intake & Output 10/01/18 10/02/18 10/02/18 18:59 06:59 18:59 Intake Total 828 500 Balance 828 500 Intake: Intake, IV Titration 200 Amount Ampicillin-Sulbactam 3 gm 200 In Sodium Chloride 0.9% 100 ml @ 200 mls/hr IVPB Q6HR [facility] Rx#:[id number] Oral 828 300 Other: # Voids 1 2 - Labs CBC & Chem 7: 10/02/18 08:17 09/30/18 06:37 Labs: Abnormal Lab Results - Last 24 Hours (Table) 10/02/18 Range/Units 08:17 WBC 18.5 H (3.8-10.6) k/uL Neutrophils # (Manual) 14.00 H (1.3-7.7) k/uL Monocytes # (Manual) 1.11 H (0-1.0) k/uL Metamyelocytes # (Man) 0.37 H (0) k/uL Myelocytes # (Manual) 0.74 H (0) k/uL Microbiology - Last 24 Hours (Table) 09/28/18 15:39 Anaerobic Culture - Final Appendix Anaerobic Gm Negative Bacilli 09/28/18 12:48 Blood Culture - Preliminary Blood No Growth after 72 hours
--- NOTE | 2018-10-02 13:46 | P.PN ---
Subjective Progress Note Date: 10/02/18 Principal diagnosis: Postoperative day 4, status post laparoscopic appendectomy for ruptured acute appendicitis This is a 58-year-old pleasant white female patient with past medical history with no significant past medical history except for urolithiasis and hernia repair, who was admitted to the hospital on 09/28/2018 she came in with complaints of diffuse abdominal pain for 5 days, CT of abdomen and pelvis showed a ruptured acute appendicitis with moderate to severe surrounding inflammation and associated poorly defined fluid measuring 4.8 cm arising from the site of the ruptured. There was no well-defined abscess at that time. Patient was taken to surgery urgently on the same day and underwent laparoscopic appendectomy for acute ruptured appendicitis. This is postop day 4. Patient is awake and alert, she is ambulating in the room, she still has some abdominal tenderness on the right side of the abdomen, were the THALIA drain is inserted, THALIA drain is draining small amount of serous fluid. No fever or chills, room air pulse ox is 96%, lung sounds are clear to auscultation. She is tolerating oral diet, she is passing flatus. Did have a bowel movement. Initial infectious disease is following. She remains on a combination of Unasyn and Flagyl. Blood blood cell count did increase to 18.5 from 17.1 yesterday. Clinically patient is without any acute complaints. We spoke to the surgeon, and the plan is to possibly obtain a repeat CAT scan of the abdomen and pelvis tomorrow if still white blood cell count continues to increase. Objective - Vital Signs Vital signs: Vital Signs Temp 97.8 F 10/02/18 08:44 Pulse 78 10/02/18 08:44 Resp 16 10/02/18 08:44 BP 123/90 10/02/18 08:44 Pulse Ox 96 10/02/18 08:44 Intake & Output 10/01/18 10/02/18 10/02/18 18:59 06:59 18:59 Intake Total 828 500 Balance 828 500 Intake: Intake, IV Titration 200 Amount Ampicillin-Sulbactam 3 gm 200 In Sodium Chloride 0.9% 100 ml @ 200 mls/hr IVPB Q6HR [facility] Rx#:[id number] Oral 828 300 Other: # Voids 1 2 - Exam GENERAL EXAM: Alert, pleasant, 58-year-old white female comfortable in no apparent distress. HEAD: Normocephalic/atraumatic. EYES: Normal reaction of pupils, equal size. Conjunctiva pink, sclera white. NOSE: Clear with pink turbinates. THROAT: No erythema or exudates. NECK: No masses, no JVD, no thyroid enlargement, no adenopathy. CHEST: No chest wall deformity. Symmetrical expansion. LUNGS: Equal air entry with no crackles, wheeze, rhonchi or dullness. CVS: Regular rate and rhythm, normal S1 and S2, no gallops, no murmurs, no rubs ABDOMEN: Soft, slight tenderness, on the right abdomen, at the THALIA insertion site with pushing. No hepatosplenomegaly, normal bowel sounds, no guarding or rigidity. There is a THALIA drain in the right abdomen, which is draining serous output EXTREMITIES: No clubbing, no edema, no cyanosis, 2+ pulses and upper and lower extremities. MUSCULOSKELETAL: Muscle strength and tone normal. SPINE: No scoliosis or deformity SKIN: No rashes CENTRAL NERVOUS SYSTEM: Alert and oriented -3. No focal deficits, tone is normal in all 4 extremities. PSYCHIATRIC: Alert and oriented -3. Appropriate affect. Intact judgment and insight. - Labs CBC & Chem 7: 10/02/18 08:17 09/30/18 06:37 Labs: Abnormal Lab Results - Last 24 Hours (Table) 10/02/18 Range/Units 08:17 WBC 18.5 H (3.8-10.6) k/uL Neutrophils # (Manual) 14.00 H (1.3-7.7) k/uL Monocytes # (Manual) 1.11 H (0-1.0) k/uL Metamyelocytes # (Man) 0.37 H (0) k/uL Myelocytes # (Manual) 0.74 H (0) k/uL Microbiology - Last 24 Hours (Table) 09/28/18 15:39 Anaerobic Culture - Final Appendix Anaerobic Gm Negative Bacilli 09/28/18 12:48 Blood Culture - Preliminary Blood No Growth after 72 hours Assessment and Plan Plan: Assessment: #1. Acute perforated appendicitis, status post laparoscopic appendectomy post op day 4 #2. Leukocytosis, secondary to above, initially after surgery started downtrending, but now is slightly on the rise #3. Peritoneal sepsis, wound culture from the appendectomy was positive for E. coli, and anaerobic gram-negative bacilli, final cultures pending. Plan: No fever or chills, patient denies any acute complaints, still some tenderness on the right side of the abdomen, THALIA drain is draining small serous output, we consult is slightly trending up, surgery may consider repeat CT of the abdomen if it continues to rise. Clinically patient is doing well, afebrile. Vital signs are stable, she is on room air, she's tolerating ambulation, no nausea, no vomiting, she is passing gas, and bowel movements, she is tolerating oral diet. Infectious disease managing the antibiotics. We'll continue to follow I performed a history & physical examination of the patient and discussed their management with my nurse practitioner, Martha Neff. I reviewed the nurse practitioner's note and agree with the documented findings and plan of care. Lung sounds are positive for clear. The findings and the impression was discussed with the patient. I attest to the documentation by the nurse practitioner. Time with Patient: Less than 30
[2018-10-03] MEDS: AMPICILLIN-SULBACTAM 3 GM in SODIUM CHLORIDE 0.9% 100 ML IVPB SCH ×3 (00:09→11:19)
[2018-10-03] MEDS: ACETAMINOPHEN TAB 325 MG TAB PO PRN ×3 (05:05→17:00)
--- NOTE | 2018-10-03 07:07 | PN ---
PROGRESS NOTE DATE OF SERVICE: 10/02/2018 REASON FOR FOLLOWUP: Abdominal abscess from ruptured appendicitis. INTERVAL HISTORY: The patient is currently afebrile. She is breathing comfortably. Denies having any chest pain or any cough. No abdominal pain. She did have some loose stools and did have worsening of her white count. PHYSICAL EXAMINATION: Blood pressure is 142/88 with a pulse of 72, temperature 98.4. She is 95% on room air. GENERAL DESCRIPTION: A middle-aged female up in the chair in no distress. RESPIRATORY SYSTEM: Unlabored breathing. Clear to auscultation anteriorly. HEART: S1, S2. Regular rate and rhythm. ABDOMEN: Soft, mildly tender on the right. No guarding, no rigidity. EXTREMITIES: No edema of the feet. LABS: Hemoglobin is 12.2, white count of 18.5, BUN of 13, creatinine 0.91. DIAGNOSTIC IMPRESSION AND PLAN: Patient admitted to the hospital acute ruptured appendicitis status post appendectomy, now with worsening of white count in this patient. Abdominal culture ( ) pathogen ( ). At this time, in the in view of loose stool, will check a stool for C diff and treat if positive. Will repeat CBC tomorrow. If the patient has worsening of white count will repeat a CT of abdomen and pelvis which will be done postop as per discussion with surgery. Continue to monitor her clinical course closely. Questions were answered. MMODL / IJN: [id number] /
[2018-10-03] MEDS: DOCUSATE 100 MG CAP PO SCH ×2 (08:19→20:04)
[2018-10-03] MEDS: metroNIDAZOLE 500 MG TAB PO SCH ×3 (08:19→21:34)
[2018-10-03] MEDS: ENOXAPARIN 40 MG/0.4 ML SYRINGE SQ SCH (08:19)
[2018-10-03] MEDS: PANTOPRAZOLE 40 MG/10 ML VIAL IV SCH (08:19)
[2018-10-03 09:34] LABS: HCT 38.6 % (34.0-46.0); HGB 12.5 gm/dL (11.4-16.0); MCH 30.6 pg (25.0-35.0); MCHC 32.3 g/dL (31.0-37.0); MCV 94.8 fL (80.0-100.0); Mean Platelet Volume 7.2; Platelet Count 421 k/uL (150-450); RBC 4.07 m/uL (3.80-5.40); RDW 12.4 % (11.5-15.5)
[2018-10-03 11:47] LABS: Band Neutrophils % 5 %; Basophils # (M) 0.18 k/uL (0-0.2); Eosinophils # (M) 0.54 k/uL (0-0.7); Lymphocytes # (M) 2.16 k/uL (1.0-4.8); Metamyelocytes # (M) 0.36 k/uL (0); Metamyelocytes % 2 %; Myelocytes # (M) 0.54 k/uL (0); Myelocytes % 3 %; Neutrophils % (M) 71 %; Nucleated Red Blood Cells 0 /100 WBC (0-0); Total Cells Counted 200
--- NOTE | 2018-10-03 12:06 | P.PN ---
Subjective Progress Note Date: 10/03/18 CHIEF COMPLAINT: Perforated appendicitis HISTORY OF PRESENT ILLNESS: The patient is a 58-year-old female status post lap appendectomy, 09/28/18, POD 5. She reports mild abdominal pain. Patient seen by Dr. Franco as well. WBC still elevated. No fevers or chills. PHYSICAL EXAM: VITAL SIGNS: Reviewed GENERAL: Well-developed in no acute distress. HEENT: No sclera icterus. Extraocular movements grossly intact. Moist buccal mucosa. Head is atraumatic, normocephalic. Hears conversational speech. NECK: Supple without lymphadenopathy. CHEST: Non-labored respirations and equal bilateral excursions. CARDIOVASCULAR: Palpable 2+ radial pulses. ABDOMEN: Soft. Dressing removed as since surgery around THALIA site. Mild tenderness at right lower quadrant. THALIA is serous. MUSCULOSKELETAL: No clubbing, cyanosis. NEUROLOGIC: No focal or lateralizing signs. Cranial nerves II through XII grossly intact. PSYCH: Appropriate affect. Alert and oriented to person, place and time. SKIN: Well perfused. Good skin turgor. LABS: Reviewed STUDIES: Reviewed ASSESSMENT: 1. Appendicitis with perforation 2. Leukocytosis PLAN: 1. Recommend CT of abd/pelvis prior to discharge. 2. Oral antibiotics managed per infectious disease. 3. New dressing along drain site ADDENDUM: New CT results reviewed with patient shows THALIA malpositioned. Small fluid collection present. MICROBIOLOGY: Confirms E. coli resistant to Unasyn which she has been on since surgery. Change antibiotics to Zosyn. Hold discharge. Objective - Vital Signs Vital signs: Vital Signs Temp 97.9 F 10/03/18 06:25 Pulse 71 10/03/18 06:25 Resp 16 10/03/18 06:25 BP 138/82 10/03/18 06:25 Pulse Ox 96 10/03/18 06:25 Intake & Output 10/02/18 10/03/18 10/03/18 18:59 06:59 18:59 Intake Total 718 118 Output Total 10 Balance 708 118 Intake: Intake, IV Titration 400 Amount Ampicillin-Sulbactam 3 gm 400 In Sodium Chloride 0.9% 100 ml @ 200 mls/hr IVPB Q6HR [facility] Rx#:[id number] Oral 318 118 Output: Drainage 10 Abdomen 10 Other: Voiding Method Toilet # Voids 3 2 2 - Labs CBC & Chem 7: 10/03/18 09:08 10/03/18 09:08 Labs: Abnormal Lab Results - Last 24 Hours (Table) 10/03/18 Range/Units 09:08 WBC 18.0 H (3.8-10.6) k/uL Neutrophils # (Manual) 13.60 H (1.3-7.7) k/uL Metamyelocytes # (Man) 0.36 H (0) k/uL Myelocytes # (Manual) 0.54 H (0) k/uL Microbiology - Last 24 Hours (Table) 09/28/18 12:48 Blood Culture - Preliminary Blood No Growth after 96 hours Assessment and Plan (1) Leukocytosis (leucocytosis) Current Visit: Yes Status: Acute Code(s): D72.829 - ELEVATED WHITE BLOOD CELL COUNT, UNSPECIFIED SNOMED Code(s): 697852878 (2) Ruptured appendix Current Visit: Yes Status: Acute Code(s): K35.32 - ACUTE APPENDICITIS WITH PERF AND LOC PERITONITIS, W/O ABSCS SNOMED Code(s): 49752981 (3) S/P appendectomy Current Visit: Yes Status: Acute Code(s): Z90.49 - ACQUIRED ABSENCE OF OTHER SPECIFIED PARTS OF DIGESTIVE TRACT SNOMED Code(s): 116845051
--- NOTE | 2018-10-03 12:30 | P.PN ---
Subjective This is a pleasant 58 years old female with no significant past medical history except for urolithiasis and hernia repair. Presents with right lower quadrant abdominal pain. Computed tomography scan of the abdomen showed perforated acute appendicitis with surrounding inflammation. A shunt was taken to operation room where she underwent Laparoscopic appendectomy. Patient seen postoperatively lying in bed, fully awake and oriented. Not in distress. Her pain in the surgical site is slightly uncontrolled and she asking a little bit more of pain medication. No nausea vomiting. She is tolerating liquid diet ( juice and water) . No bowel movement or passing gases yet. She is on pain medication, Lovenox for DVT prophylaxis as per primary surgical team. Also she is on Flagyl and Protonix. IV fluids with normal saline at 100 mL per hour. 09/29/2018 Patient status post emergent laparoscopic appendectomy for perforated appendix. Today is postop day #1. She has mild to moderate pain around the surgery site. However abdominal examination looks more benign. No nausea vomiting. No bowel movement T8. No chest pain or dyspnea. No fever. Rest of White is looks stable. Her leukocytosis is slightly worsened from 15.2 up to 19.9 K. Creatinine is 0.7. Electrolytes within normal limits. Once culture still pending. Patient remains on Zosyn for postoperative bacterial coverage. Infectious disease and pulmonary team R following the case as well. 09/30/2018 Patient feels better with less abdominal pain and tolerating diet well with no nausea or vomiting. Wound looks close with no surrounding cellulitis but there is minimal purulent discharge, drain is in place. Patient continue on Zosyn. Wound culture showing gram-negative bacilli final result is pending. Leukocytosis improvement from 19.9 down to 15.8 K. Barrientos flaps were reviewed and are unremarkable except for mild anemia at 10.6 10/01/18 pt feels better , abdominal pain is improving ,no chest pain or dyspnea, pt is mobile , tolerating diet, her leukocytosis is improving. vital stable, pt is been followed up by many [facility] consultant including pulmonary and ID disease. 10/02/2018 Patient still have some minimal pain around her surgery site, however clinically she is doing well. Vitas is stable with her leukocytosis got worse today up to 18.5 K. Culture showing E. coli and an aerobic gram-negative bacilli pending final culture results. Infectious disease follow-up is appreciated, currently she is on Flagyl and Unasyn. 10/03/2018 Patient seen and examined at bedside. Her right quadrant abdominal pain and wound are healing. This abdominal pain and tenderness. less purulent discharge. However patient still have leukocytosis at 18 K. Creatinine 0.9 last time was checked. However want cultures coming back positive for gram- negative bacilli in the anaerobic culture on the top of E. coli in the aerobic culture. Infectious disease been consulted already. Objective - Vital Signs Vital signs: Vital Signs Temp 97.9 F 10/03/18 06:25 Pulse 71 10/03/18 06:25 Resp 16 10/03/18 06:25 BP 138/82 10/03/18 06:25 Pulse Ox 96 10/03/18 06:25 Intake & Output 10/02/18 10/03/18 10/03/18 18:59 06:59 18:59 Intake Total 718 118 Output Total 10 Balance 708 118 Intake: Intake, IV Titration 400 Amount Ampicillin-Sulbactam 3 gm 400 In Sodium Chloride 0.9% 100 ml @ 200 mls/hr IVPB Q6HR [facility] Rx#:[id number] Oral 318 118 Output: Drainage 10 Abdomen 10 Other: Voiding Method Toilet # Voids 3 2 2 - Exam GENERAL: The patient is alert and oriented x3, not in any acute distress. Well developed, well nourished. HEENT: Pupils are round and equally reacting to light. EOMI. No scleral icterus. No conjunctival pallor. Normocephalic, atraumatic. No pharyngeal erythema. No thyromegaly. CARDIOVASCULAR: S1 and S2 present. No murmurs, rubs, or gallops. PULMONARY: Chest is clear to auscultation, no wheezing or crackles. -ABDOMEN: Soft, nontender, nondistended, normoactive bowel sounds. No palpable organomegaly. Right lower quadrant surgical wound is clean . Minimal purulent discharge from the wound MUSCULOSKELETAL: No joint swelling or deformity. EXTREMITIES: No cyanosis, clubbing, or pedal edema. NEUROLOGICAL: Gross neurological examination did not reveal any focal deficits. SKIN: No rashes. - Labs CBC & Chem 7: 10/03/18 09:08 09/30/18 06:37 Labs: Abnormal Lab Results - Last 24 Hours (Table) 10/03/18 Range/Units 09:08 WBC 18.0 H (3.8-10.6) k/uL Neutrophils # (Manual) 13.60 H (1.3-7.7) k/uL Metamyelocytes # (Man) 0.36 H (0) k/uL Myelocytes # (Manual) 0.54 H (0) k/uL Microbiology - Last 24 Hours (Table) 09/28/18 12:48 Blood Culture - Preliminary Blood No Growth after 96 hours Assessment and Plan Assessment: Perforated appendicitis, status post laparoscopic appendectomy Postoperative pain, on therapy Leukocytosis, secondary to above Abnormal urinalysis, mostly related to her appendicitis and dehydration. Plan: This is a pleasant 58 years old female, she is a status post laparoscopic appendectomy. Continue with DVT prophylaxis and pain management as per primary surgical team. Currently she is on Lovenox. She is on Protonix for GI prophylaxis. Infectious disease has been consulted. However we will change her Flagyl to zosyn pending culture results and to cover for gram-negative and anaerobic bacteria pending Infectious disease team final recommendation. Labs and medication were reviewed.. Continue same treatment. Continue with symptomatic treatment. Resume home medication. Monitor lytes and vitals. DVT and GI prophylaxis. Further recommendations of the clinical course of the patient Prognosis is guarded
[2018-10-03 12:50] LABS: Anion Gap 8 mmol/L; Blood Urea Nitrogen 8 mg/dL (7-17); Carbon Dioxide 27 mmol/L (22-30); Chloride 103 mmol/L (98-107); Glucose 98 mg/dL (74-99); Potassium 4.2 mmol/L (3.5-5.1); Sodium 138 mmol/L (137-145)
[2018-10-03] MEDS: IOPAMIDOL-300 CONTRAST 30 ML VIAL (ORAL USE) PO PRN ×2 (13:24→14:23)
--- NOTE | 2018-10-03 15:56 | CT ---
EXAMINATION TYPE: CT abdomen pelvis w con DATE OF EXAM: 10/03/2018 HISTORY: abdominal pain and increased WBC's [address] DLP: 697.6mGycm Automated Exposure Control for Dose Reduction was Utilized. CONTRAST: CT scan of the abdomen and pelvis is performed with IV Contrast, patient injected with 100 mL of Isov ue 300. COMPARISON: CT abdomen pelvis 5 days ago FINDINGS: LUNG BASES: Patchy bibasilar linear scarring and/or atelectasis remains present. There is new tiny ri ght pleural effusion and associated right basilar atelectasis LIVER/GB: No significant abnormality is appreciated. PANCREAS: No significant abnormality is seen. SPLEEN: No significant abnormality is seen. ADRENALS: No significant abnormality is seen. KIDNEYS: A few small simple appearing cysts scattered throughout both kidneys are redemonstrated. No hydronephrosis is seen bilaterally. BOWEL: Oral contrast reaches level of rectum. There is no suspicious small or large bowel dilatation. There is persistent but less prominent mild fat stranding and ill-defined fluid in the right lower q uadrant. There is new percutaneous drainage catheter entering the right midabdomen terminating actual ly in the left pelvis on current study. UTERUS/ADNEXA: Anteverted uterus is noted. LYMPH NODES: No greater than 1cm abdominal or pelvic lymph nodes are appreciated. OSSEOUS STRUCTURES: Moderate disc space narrowing with vacuum disc phenomenon L5-S1 level is present. OTHER: New foci of air left anterior abdominal wall axial image 52 are noted. New ill-defined fat stranding horizontally in the mid abdomen likely reflects interval open abdominal surgery IMPRESSION: 1. Suspect interval open abdominal surgery with placement of percutaneous drainage catheter, interval improvement in inflammatory change and focal fluid in the right lower quadrant from prior CT. Cathet er tip is in the left pelvis. Consider removal as positioning of the tip is apart from the area of re sidual inflammation. Correlate clinically with drainage output.
--- NOTE | 2018-10-03 16:19 | PN ---
PROGRESS NOTE DATE OF SERVICE: 10/03/2018 This is a 58-year-old female who came into the hospital on Friday morning with a ruptured acute appendicitis. She went to the operating room that same day and had a laparoscopic appendectomy. The patient did have some swelling of the abdomen. E. coli was identified in the sampling. She is currently on antibiotics. She is doing reasonably well. I did speak to Dr. Whitaker about ordering another CT scan of the abdomen. Her white count has been hovering right around 18 to 19,000. She is still having pain in the area. She is not sure if it is pain in the abdomen or pain from the drain that is still in place. There has been minimal drainage today from the drain that is currently in the belly. She is being followed by Infectious Disease. Current vital signs are reviewed. Temperature is 97.9, heart rate 71, respiratory rate 16, blood pressure 138/82, mean 100. Room air saturations 96%. Appears in no acute distress. HEENT examination is grossly unremarkable. Mucous membranes are moist. No oral lesions. Neck is supple. Full range of motion. No adenopathy or thyromegaly. Cardiovascular examination reveals regular rhythm rate. Heart rate 71. S1, S2 normal. No murmur. Lungs reveal clear breath sounds. No wheezes, rhonchi, or crackles. Abdomen reveals some tenderness in the right lower quadrant. Otherwise, the abdominal examination is unremarkable. Extremities are intact. No cyanosis, clubbing, or edema. Skin without rash. Neurologic examination is brief but nonfocal. LABS: Reviewed. White count 18, hemoglobin 12.5, hematocrit 38.6, platelet count 421,000. Sodium, potassium, chloride and CO2 all normal. Anion gap is 8. BUN and creatinine were 8 and 0.73. Calcium is 9. C diff studies are negative. Microbiologic studies show evidence of wound cultures being positive for E coli. She also had a culture of the appendix that was removed that was positive for anaerobic gram-negative bacilli. It was not identified any further. The patient remains on Flagyl and Unasyn. A repeat CT scan of the abdomen and pelvis was reordered. ASSESSMENT: Postop day #5 status post laparoscopic appendectomy for ruptured acute appendicitis, rule out intraabdominal abscess. PLAN: The patient will have a repeat CT scan of the abdomen and pelvis today. I did speak to Dr. Whitaker. She remains on Unasyn and Flagyl. White count today is 18,000. No additional recommendations are made. Prognosis is guarded. We will continue to follow. Drainage has significantly slowed down. MMODL / IJN: [id number] /
[2018-10-03] MEDS: PIPERACILLIN-TAZOBACTAM 3.375 GM in SODIUM CHLORIDE 0.9% 100 ML IVPB SCH ×2 (17:25→23:45)
[2018-10-03] MEDS: HYDROcodone/APAP 5-325MG 1 EACH TAB PO PRN (21:34)
--- NOTE | 2018-10-04 02:25 | PN ---
PROGRESS NOTE DATE OF SERVICE: 10/03/2018. REASON FOR FOLLOWUP: Abdominal abscess from ruptured appendicitis. INTERVAL HISTORY: The patient is currently afebrile. She is breathing comfortably. The patient did have a repeat CT of the abdomen and pelvis completed with contrast. No nausea, no vomiting or any diarrhea or worsening abdominal pain. PHYSICAL EXAMINATION: Blood pressure 100/63 with a pulse of 91, temperature of 98.3. She is 95% on room air. General description is a middle-aged female lying in bed in no distress. Respiratory system: Unlabored breathing, clear to auscultation anteriorly. Heart S1, S2. Regular rate and rhythm. Abdomen soft, no tenderness. LABS: BUN of 8, creatinine 0.73, hemoglobin 8.[address] abdomen and pelvis did show a fluid collection with catheter tip not in the same area. DIAGNOSTIC IMPRESSION AND PLAN: Patient with abdominal abscess from acute appendicitis now with persistent elevated white count more likely because fluid. is not being drained with current drainage catheter and should be adjusted and let the fluid drain out. Antibiotic was switched to Zosyn by the surgeon. We will monitor her clinical course closely. Continue supportive care. MMODL / IJN: [id number] /
[2018-10-04] MEDS: metroNIDAZOLE 500 MG TAB PO SCH ×3 (08:48→21:08)
[2018-10-04] MEDS: ENOXAPARIN 40 MG/0.4 ML SYRINGE SQ SCH (08:48)
[2018-10-04] MEDS: PANTOPRAZOLE 40 MG TABLET PO SCH (08:49)
[2018-10-04] MEDS: PIPERACILLIN-TAZOBACTAM 3.375 GM in SODIUM CHLORIDE 0.9% 100 ML IVPB SCH ×2 (08:49→17:14)
[2018-10-04] MEDS: DOCUSATE 100 MG CAP PO SCH ×2 (08:49→21:09)
[2018-10-04] MEDS: ACETAMINOPHEN TAB 325 MG TAB PO PRN (08:51)
[2018-10-04 09:00] LABS: HCT 42.2 % (34.0-46.0); HGB 13.2 gm/dL (11.4-16.0); MCH 30.2 pg (25.0-35.0); MCHC 31.3 g/dL (31.0-37.0); MCV 96.5 fL (80.0-100.0); Mean Platelet Volume 7.1; Platelet Count 445 k/uL (150-450); RBC 4.38 m/uL (3.80-5.40); RDW 12.7 % (11.5-15.5); WBC 18.3 k/uL (3.8-10.6)
--- NOTE | 2018-10-04 09:58 | P.PN ---
Subjective This is a pleasant 58 years old female with no significant past medical history except for urolithiasis and hernia repair. Presents with right lower quadrant abdominal pain. Computed tomography scan of the abdomen showed perforated acute appendicitis with surrounding inflammation. A shunt was taken to operation room where she underwent Laparoscopic appendectomy. Patient seen postoperatively lying in bed, fully awake and oriented. Not in distress. Her pain in the surgical site is slightly uncontrolled and she asking a little bit more of pain medication. No nausea vomiting. She is tolerating liquid diet ( juice and water) . No bowel movement or passing gases yet. She is on pain medication, Lovenox for DVT prophylaxis as per primary surgical team. Also she is on Flagyl and Protonix. IV fluids with normal saline at 100 mL per hour. 09/29/2018 Patient status post emergent laparoscopic appendectomy for perforated appendix. Today is postop day #1. She has mild to moderate pain around the surgery site. However abdominal examination looks more benign. No nausea vomiting. No bowel movement T8. No chest pain or dyspnea. No fever. Rest of White is looks stable. Her leukocytosis is slightly worsened from 15.2 up to 19.9 K. Creatinine is 0.7. Electrolytes within normal limits. Once culture still pending. Patient remains on Zosyn for postoperative bacterial coverage. Infectious disease and pulmonary team R following the case as well. 09/30/2018 Patient feels better with less abdominal pain and tolerating diet well with no nausea or vomiting. Wound looks close with no surrounding cellulitis but there is minimal purulent discharge, drain is in place. Patient continue on Zosyn. Wound culture showing gram-negative bacilli final result is pending. Leukocytosis improvement from 19.9 down to 15.8 K. Barrientos flaps were reviewed and are unremarkable except for mild anemia at 10.6 10/01/18 pt feels better , abdominal pain is improving ,no chest pain or dyspnea, pt is mobile , tolerating diet, her leukocytosis is improving. vital stable, pt is been followed up by many technical solutions consultant including pulmonary and ID disease. 10/02/2018 Patient still have some minimal pain around her surgery site, however clinically she is doing well. Vitas is stable with her leukocytosis got worse today up to 18.5 K. Culture showing E. coli and an aerobic gram-negative bacilli pending final culture results. Infectious disease follow-up is appreciated, currently she is on Flagyl and Unasyn. 10/03/2018 Patient seen and examined at bedside. Her right quadrant abdominal pain and wound are healing. This abdominal pain and tenderness. less purulent discharge. However patient still have leukocytosis at 18 K. Creatinine 0.9 last time was checked. However want cultures coming back positive for gram- negative bacilli in the anaerobic culture on the top of E. coli in the aerobic culture. Infectious disease been consulted already. 10/04/2018 No change in the patient's clinical condition exit for her right lower quadrant abdominal pain and tenderness are improving, drain is still in place. Hemodynamically stable. While leukocytosis looks the same 18.3. Patient remains on antibiotics. No much discharge from the wound drain. Patient was placed back on Zosyn. Objective - Vital Signs Vital signs: Vital Signs Temp 97.9 F 10/04/18 08:45 Pulse 76 10/04/18 08:45 Resp 16 10/04/18 08:45 BP 147/93 10/04/18 08:45 Pulse Ox 96 10/04/18 00:17 Intake & Output 10/03/18 10/04/18 10/04/18 18:59 06:59 18:59 Intake Total 118 300 240 Output Total 10 Balance 108 300 240 Intake: Intake, IV Titration 100 Amount Piperacillin-Tazobactam 3 100 .375 gm In Sodium Chloride 0.9% 100 ml @ 25 mls/hr IVPB Q8HR [facility] Rx# :[id number] Oral 118 200 240 Output: Drainage 10 Abdomen 10 Other: Voiding Method Toilet # Voids 3 2 # Bowel Movements 1 - Exam GENERAL: The patient is alert and oriented x3, not in any acute distress. Well developed, well nourished. HEENT: Pupils are round and equally reacting to light. EOMI. No scleral icterus. No conjunctival pallor. Normocephalic, atraumatic. No pharyngeal erythema. No thyromegaly. CARDIOVASCULAR: S1 and S2 present. No murmurs, rubs, or gallops. PULMONARY: Chest is clear to auscultation, no wheezing or crackles. -ABDOMEN: Soft, nontender, nondistended, normoactive bowel sounds. No palpable organomegaly. Right lower quadrant surgical wound is clean . Minimal purulent discharge from the wound MUSCULOSKELETAL: No joint swelling or deformity. EXTREMITIES: No cyanosis, clubbing, or pedal edema. NEUROLOGICAL: Gross neurological examination did not reveal any focal deficits. SKIN: No rashes. - Labs CBC & Chem 7: 10/04/18 08:01 10/03/18 09:08 Labs: Abnormal Lab Results - Last 24 Hours (Table) 10/03/18 10/04/18 Range/Units 09:08 08:01 WBC 18.3 H (3.8-10.6) k/uL Neutrophils # 15.1 H (1.3-7.7) k/uL Neutrophils # (Manual) 13.60 H (1.3-7.7) k/uL Metamyelocytes # (Man) 0.36 H (0) k/uL Myelocytes # (Manual) 0.54 H (0) k/uL Microbiology - Last 24 Hours (Table) 09/28/18 12:48 Blood Culture - Preliminary Blood No Growth after 120 hours Assessment and Plan Assessment: Perforated appendicitis, status post laparoscopic appendectomy Postoperative pain, on therapy Leukocytosis, secondary to above Abnormal urinalysis, mostly related to her appendicitis and dehydration. Plan: This is a pleasant 58 years old female, she is a status post laparoscopic appendectomy. Continue with DVT prophylaxis and pain management as per primary surgical team. Currently she is on Lovenox. She is on Protonix for GI prophylaxis. Infectious disease has been consulted. However we will change her Flagyl to zosyn pending culture results and to cover for gram-negative and anaerobic bacteria pending Infectious disease team final recommendation. Labs and medication were reviewed.. Continue same treatment. Continue with symptomatic treatment. Resume home medication. Monitor lytes and vitals. DVT and GI prophylaxis. Further recommendations of the clinical course of the patient Prognosis is guarded
[2018-10-04 10:12] LABS: Band Neutrophils % 4 %; Basophils # (M) 0.18 k/uL (0-0.2); Lymphocytes # (M) 1.83 k/uL (1.0-4.8); Monocytes # (M) 0.92 k/uL (0-1.0); Myelocytes # (M) 0.55 k/uL (0); Myelocytes % 3 %; Neutrophils % (M) 71 %; Nucleated Red Blood Cells 0 /100 WBC (0-0); Total Cells Counted 100
--- NOTE | 2018-10-04 11:59 | P.PN ---
Subjective Progress Note Date: 10/04/18 CHIEF COMPLAINT: Perforated appendicitis HISTORY OF PRESENT ILLNESS: The patient is a 58-year-old female status post lap appendectomy, 09/28/18, POD 6. White blood count elevated over 18,000. CT consistent with poorly positioned THALIA drain. Fluid collection noted along the right lower quadrant. No reports of fevers or chills. PHYSICAL EXAM: VITAL SIGNS: Reviewed GENERAL: Well-developed in no acute distress. HEENT: No sclera icterus. Extraocular movements grossly intact. Moist buccal mucosa. Head is atraumatic, normocephalic. Hears conversational speech. NECK: Supple without lymphadenopathy. CHEST: Non-labored respirations and equal bilateral excursions. CARDIOVASCULAR: Palpable 2+ radial pulses. ABDOMEN: Soft. No peritonitis. THALIA is serous. MUSCULOSKELETAL: No clubbing, cyanosis. NEUROLOGIC: No focal or lateralizing signs. Cranial nerves II through XII grossly intact. PSYCH: Appropriate affect. Alert and oriented to person, place and time. SKIN: Well perfused. Good skin turgor. LABS: Reviewed STUDIES: Reviewed ASSESSMENT: 1. Appendicitis with perforation 2. Leukocytosis PLAN: 1. Antibiotics adjusted to Zosyn. She has been on Zosyn less than 18 hours. 2. Discharge on hold pending resolution of leukocytosis Objective - Vital Signs Vital signs: Vital Signs Temp 97.9 F 10/04/18 08:45 Pulse 76 10/04/18 08:45 Resp 16 10/04/18 08:45 BP 147/93 10/04/18 08:45 Pulse Ox 96 10/04/18 00:17 Intake & Output 10/03/18 10/04/18 10/04/18 18:59 06:59 18:59 Intake Total 118 300 240 Output Total 10 Balance 108 300 240 Intake: Intake, IV Titration 100 Amount Piperacillin-Tazobactam 3 100 .375 gm In Sodium Chloride 0.9% 100 ml @ 25 mls/hr IVPB Q8HR [facility] Rx# :[id number] Oral 118 200 240 Output: Drainage 10 Abdomen 10 Other: Voiding Method Toilet # Voids 3 2 # Bowel Movements 1 - Labs CBC & Chem 7: 10/04/18 08:01 10/03/18 09:08 Labs: Abnormal Lab Results - Last 24 Hours (Table) 10/04/18 Range/Units 08:01 WBC 18.3 H (3.8-10.6) k/uL Neutrophils # (Manual) 13.70 H (1.3-7.7) k/uL Eosinophils # (Manual) 1.10 H (0-0.7) k/uL Myelocytes # (Manual) 0.55 H (0) k/uL Microbiology - Last 24 Hours (Table) 09/28/18 12:48 Blood Culture - Preliminary Blood No Growth after 120 hours - Imaging and Cardiology CT scan - abdomen: report reviewed, image reviewed CT scan - pelvis: report reviewed, image reviewed (THALIA malposition. Fluid collection right lower quadrant, small) Assessment and Plan (1) Leukocytosis (leucocytosis) Current Visit: Yes Status: Acute Code(s): D72.829 - ELEVATED WHITE BLOOD CELL COUNT, UNSPECIFIED SNOMED Code(s): 867154845 (2) Ruptured appendix Current Visit: Yes Status: Acute Code(s): K35.32 - ACUTE APPENDICITIS WITH PERF AND LOC PERITONITIS, W/O ABSCS SNOMED Code(s): 18560965 (3) S/P appendectomy Current Visit: Yes Status: Acute Code(s): Z90.49 - ACQUIRED ABSENCE OF OTHER SPECIFIED PARTS OF DIGESTIVE TRACT SNOMED Code(s): 135014281
--- NOTE | 2018-10-04 13:35 | PN ---
PROGRESS NOTE DATE OF SERVICE: October 04, 2018 This is a 58-year-old female who came into the hospital with a ruptured acute appendicitis. She underwent laparoscopic appendectomy on Friday of this past week. Since that time, she has been doing relatively well, although she still has a persistently elevated white blood count. The drainage from the site drain has diminished. She still is having pain in the right lower quadrant. A repeat CT scan done yesterday shows improvement in that area. She was seen by Dr. Whitaker over the weekend. Her antibiotic was changed to Zosyn. She has been followed by Infectious Disease as well. Her appetite is poor. Her white count still hanging right around 18.5 thousand. Current vital signs include a temperature 97.9 heart rate 76, respiratory rate 16, blood pressure 147/93, mean 111, room air saturation 96%. Appears in no acute distress. HEENT examination is grossly unremarkable. Mucous membranes are moist. No oral lesions. Neck is supple. Full range of motion. No adenopathy or thyromegaly. Neck veins are flat. Cardiovascular examination reveals regular rhythm rate. S1, S2 normal. No S3, S4, or murmur. Lungs are clear. Breath sounds equal. No wheezes, rhonchi, or crackles. Abdomen reveals some mild tenderness around the right lower quadrant. A drain is noted. No masses. Extremities are intact. No cyanosis, clubbing, or edema. Skin without rash. Neurologic examination is brief but nonfocal. LABORATORY DATA: Reviewed. White count 18.3, hemoglobin 13.2, hematocrit 42.2, platelet count 445,000. The rest of the labs look okay. Microbiologic data has been reviewed ad nauseam. Medications are reviewed. ASSESSMENT: 1. Day #5 status post laparoscopic appendectomy for ruptured acute appendicitis, rule out intraabdominal abscess. 2. Persistently elevated white blood count. 3. Persistent pain right lower quadrant. PLAN: Dr. Boyer will be back to see the patient tomorrow. He will make a final decision about the possible drain removal. CT scan looks improved. Antibiotic was changed from Unasyn and Flagyl to Zosyn. We will continue to follow. Prognosis is guarded. White count was 18,500 today. MMODL / IJN: [id number] /
[2018-10-04] MEDS: HYDROcodone/APAP 5-325MG 1 EACH TAB PO PRN (21:13)
--- NOTE | 2018-10-05 00:32 | PN ---
PROGRESS NOTE DATE OF SERVICE: 10/04/2018. REASON FOR FOLLOWUP: Abdominal abscess from ruptured appendicitis. INTERVAL HISTORY: The patient is currently afebrile. She is breathing comfortably. Denies any chest pain or any cough. Denies any abdominal pain. No output in the THALIA drainage and no diarrhea. PHYSICAL EXAMINATION: Blood pressure 131/80 with a pulse of 78, temperature 98.3. She is 100% on room air. General description is a middle aged female lying in bed in no distress. Respiratory system: Unlabored breathing. Clear to auscultation anteriorly. Heart S1, S2. Regular rate and rhythm. Abdomen soft, no tenderness. LABS: Hemoglobin 13.1, white count 8.3, BUN of 8, creatinine 0.73. CT did show fluid collection however not close to the THALIA drain. DIAGNOSTIC IMPRESSION AND PLAN: Patient with ruptured appendicitis in this patient who is status post laparoscopic appendectomy. The elevated white count more likely due to the fluid currently not being drained, possibly adjustment of the to let the fluid drain will help in improvement in her white count. Continue Zosyn for now. Continue supportive care. MMODL / IJN: [id number] /
[2018-10-05] MEDS: PIPERACILLIN-TAZOBACTAM 3.375 GM in SODIUM CHLORIDE 0.9% 100 ML IVPB SCH ×4 (02:21→23:20)
[2018-10-05 06:53] LABS: Basophils # (A) 0.2 k/uL (0-0.2); Basophils % (A) 1 %; Eosinophils # (A) 0.4 k/uL (0-0.7); Eosinophils % (A) 2 %; HCT 41.8 % (34.0-46.0); HGB 13.4 gm/dL (11.4-16.0); Lymphocytes # (A) 1.9 k/uL (1.0-4.8); Lymphocytes % (A) 11 %; MCH 30.8 pg (25.0-35.0); MCHC 31.9 g/dL (31.0-37.0); MCV 96.5 fL (80.0-100.0); Mean Platelet Volume 6.5; Monocytes # (A) 0.6 k/uL (0-1.0); Monocytes % (A) 3 %; Neutrophils # (A) 15.1 k/uL (1.3-7.7); Neutrophils % (A) 82 %; Platelet Count 488 k/uL (150-450); RBC 4.34 m/uL (3.80-5.40); RDW 12.4 % (11.5-15.5); WBC 18.4 k/uL (3.8-10.6)
[2018-10-05] MEDS: DOCUSATE 100 MG CAP PO SCH ×2 (09:05→22:44)
[2018-10-05] MEDS: ENOXAPARIN 40 MG/0.4 ML SYRINGE SQ SCH (09:05)
[2018-10-05] MEDS: PANTOPRAZOLE 40 MG TABLET PO SCH (09:06)
[2018-10-05] MEDS: metroNIDAZOLE 500 MG TAB PO SCH ×3 (09:06→22:44)
--- NOTE | 2018-10-05 09:12 | P.PN ---
Subjective This is a pleasant 58 years old female with no significant past medical history except for urolithiasis and hernia repair. Presents with right lower quadrant abdominal pain. Computed tomography scan of the abdomen showed perforated acute appendicitis with surrounding inflammation. A shunt was taken to operation room where she underwent Laparoscopic appendectomy. Patient seen postoperatively lying in bed, fully awake and oriented. Not in distress. Her pain in the surgical site is slightly uncontrolled and she asking a little bit more of pain medication. No nausea vomiting. She is tolerating liquid diet ( juice and water) . No bowel movement or passing gases yet. She is on pain medication, Lovenox for DVT prophylaxis as per primary surgical team. Also she is on Flagyl and Protonix. IV fluids with normal saline at 100 mL per hour. 09/29/2018 Patient status post emergent laparoscopic appendectomy for perforated appendix. Today is postop day #1. She has mild to moderate pain around the surgery site. However abdominal examination looks more benign. No nausea vomiting. No bowel movement T8. No chest pain or dyspnea. No fever. Rest of White is looks stable. Her leukocytosis is slightly worsened from 15.2 up to 19.9 K. Creatinine is 0.7. Electrolytes within normal limits. Once culture still pending. Patient remains on Zosyn for postoperative bacterial coverage. Infectious disease and pulmonary team R following the case as well. 09/30/2018 Patient feels better with less abdominal pain and tolerating diet well with no nausea or vomiting. Wound looks close with no surrounding cellulitis but there is minimal purulent discharge, drain is in place. Patient continue on Zosyn. Wound culture showing gram-negative bacilli final result is pending. Leukocytosis improvement from 19.9 down to 15.8 K. Barrientos flaps were reviewed and are unremarkable except for mild anemia at 10.6 10/01/18 pt feels better , abdominal pain is improving ,no chest pain or dyspnea, pt is mobile , tolerating diet, her leukocytosis is improving. vital stable, pt is been followed up by many marketing regional consultant including pulmonary and ID disease. 10/02/2018 Patient still have some minimal pain around her surgery site, however clinically she is doing well. Vitas is stable with her leukocytosis got worse today up to 18.5 K. Culture showing E. coli and an aerobic gram-negative bacilli pending final culture results. Infectious disease follow-up is appreciated, currently she is on Flagyl and Unasyn. 10/03/2018 Patient seen and examined at bedside. Her right quadrant abdominal pain and wound are healing. This abdominal pain and tenderness. less purulent discharge. However patient still have leukocytosis at 18 K. Creatinine 0.9 last time was checked. However want cultures coming back positive for gram- negative bacilli in the anaerobic culture on the top of E. coli in the aerobic culture. Infectious disease been consulted already. 10/04/2018 No change in the patient's clinical condition exit for her right lower quadrant abdominal pain and tenderness are improving, drain is still in place. Hemodynamically stable. While leukocytosis looks the same 18.3. Patient remains on antibiotics. No much discharge from the wound drain. Patient was placed back on Zosyn. 10/05/2018 Patient right lower quadrant pain is improving, less tenderness. Drain still in place. Wound looks healing. Patient denies chest pain or dyspnea.vital signs stable. Temperature 98.1. Heart rate 67, respiratory rate 14, and blood pressure 126/80. patient still has persistent leukocytosis around 18.4 K today. Mainly neutrophilia. Her antibiotics has been changed to Zosyn which she is getting now. Patient disease team are following the case. Culture and anaerobic wound showing gram-negative bacilli, while aerobic culture showing E. coli. Objective - Vital Signs Vital signs: Vital Signs Temp 98.1 F 10/05/18 00:15 Pulse 67 10/05/18 00:15 Resp 14 10/05/18 00:15 BP 126/80 10/05/18 00:15 Pulse Ox 98 10/05/18 00:15 Intake & Output 10/04/18 10/05/18 10/05/18 18:59 06:59 18:59 Intake Total 420 700 Output Total 2 Balance 420 698 Intake: Intake, IV Titration 100 Amount Piperacillin-Tazobactam 3 100 .375 gm In Sodium Chloride 0.9% 100 ml @ 25 mls/hr IVPB Q8HR [facility] Rx# :[id number] Oral 420 600 Output: Drainage 2 Abdomen 2 Other: Voiding Method Toilet # Voids 1 2 - Exam GENERAL: The patient is alert and oriented x3, not in any acute distress. Well developed, well nourished. HEENT: Pupils are round and equally reacting to light. EOMI. No scleral icterus. No conjunctival pallor. Normocephalic, atraumatic. No pharyngeal erythema. No thyromegaly. CARDIOVASCULAR: S1 and S2 present. No murmurs, rubs, or gallops. PULMONARY: Chest is clear to auscultation, no wheezing or crackles. -ABDOMEN: Soft, nontender, nondistended, normoactive bowel sounds. No palpable organomegaly. Right lower quadrant surgical wound is clean . Minimal purulent discharge from the wound MUSCULOSKELETAL: No joint swelling or deformity. EXTREMITIES: No cyanosis, clubbing, or pedal edema. NEUROLOGICAL: Gross neurological examination did not reveal any focal deficits. SKIN: No rashes. - Labs CBC & Chem 7: 10/05/18 06:10 10/03/18 09:08 Labs: Abnormal Lab Results - Last 24 Hours (Table) 10/04/18 10/05/18 Range/Units 08:01 06:10 WBC 18.4 H (3.8-10.6) k/uL Plt Count 488 H (150-450) k/uL Neutrophils # 15.1 H (1.3-7.7) k/uL Neutrophils # (Manual) 13.70 H (1.3-7.7) k/uL Eosinophils # (Manual) 1.10 H (0-0.7) k/uL Myelocytes # (Manual) 0.55 H (0) k/uL Microbiology - Last 24 Hours (Table) 09/28/18 12:48 Blood Culture - Final Blood No Growth after 144 hours Assessment and Plan Assessment: Perforated appendicitis, status post laparoscopic appendectomy Postoperative pain, controlled Leukocytosis, secondary to above Abnormal urinalysis, mostly related to her appendicitis and dehydration. Plan: This is a pleasant 58 years old female, she is a status post laparoscopic appendectomy. Continue with DVT prophylaxis and pain management as per primary surgical team. Currently she is on Lovenox. She is on Protonix for GI prophylaxis. Infectious disease has been consulted. she is onzosyn pending culture results and to cover for gram-negative and anaerobic bacteria pending Infectious disease team final recommendation. Labs and medication were reviewed.. Continue same treatment. Continue with symptomatic treatment. Resume home medication. Monitor lytes and vitals. DVT and GI prophylaxis. Further recommendations of the clinical course of the patient Prognosis is guarded
[2018-10-05] MEDS: ACETAMINOPHEN TAB 325 MG TAB PO PRN ×2 (09:49→22:43)
--- NOTE | 2018-10-05 13:54 | P.PN ---
Subjective Progress Note Date: 10/05/18 CHIEF COMPLAINT: Abdominal pain HISTORY OF PRESENT ILLNESS: Patient is status post laparoscopic appendectomy for acute ruptured appendicitis. Patient states her pain is tolerable at this time. She is tolerating diet. Passing flatus. +BM. Infectious disease is following. She remains on Zosyn and Flagyl. WBC remains elevated at 18.4. CT shows fluid in right lower quadrant. THALIA positioned in left pelvis. THALIA with minimal serous drainage. PHYSICAL EXAM: VITAL SIGNS: Currently stable. GENERAL: Well-developed in no acute distress. HEENT: No sclera icterus. Extraocular movements grossly intact. Moist buccal mucosa. Head is atraumatic, normocephalic. Hears conversational speech. No nasal drainage. NECK: Supple without lymphadenopathy. CHEST: Non-labored respirations and equal bilateral excursions. CARDIOVASCULAR: Regular rate with regular rhythm. Palpable 2+ radial pulses. ABDOMEN: Soft. Nondistended. THALIA drain with minimal serous drainage. Incisions dry and intact without drainage. MUSCULOSKELETAL: No clubbing, cyanosis or edema. NEUROLOGIC: No focal or lateralizing signs. Cranial nerves II through XII grossly intact. PSYCH: Appropriate affect. Alert and oriented to person, place and time. SKIN: Well perfused. Good skin turgor. ASSESSMENT: 1. Acute ruptured appendicitis, status post laparoscopic appendectomy 2. Leukocytosis PLAN: 1. Continue current diet 2. Continue antibiotics 3. Will discuss THALIA drain and fluid collection with Dr. Boyer and further recommendations will be made Nurse practitioner note has been reviewed by physician. Signing provider agrees with the documented findings, assessment, and plan of care. Objective - Vital Signs Vital signs: Vital Signs Temp 98 F 10/05/18 07:00 Pulse 94 10/05/18 07:00 Resp 17 10/05/18 07:00 BP 137/85 10/05/18 07:00 Pulse Ox 98 10/05/18 07:00 Intake & Output 10/04/18 10/05/18 10/05/18 18:59 06:59 18:59 Intake Total 420 700 Output Total 2 Balance 420 698 Intake: Intake, IV Titration 100 Amount Piperacillin-Tazobactam 3 100 .375 gm In Sodium Chloride 0.9% 100 ml @ 25 mls/hr IVPB Q8HR [facility] Rx# :[id number] Oral 420 600 Output: Drainage 2 Abdomen 2 Other: Voiding Method Toilet Toilet # Voids 1 2 - Labs CBC & Chem 7: 10/05/18 06:10 10/03/18 09:08 Labs: Abnormal Lab Results - Last 24 Hours (Table) 10/05/18 Range/Units 06:10 WBC 18.4 H (3.8-10.6) k/uL Plt Count 488 H (150-450) k/uL Neutrophils # 15.1 H (1.3-7.7) k/uL Microbiology - Last 24 Hours (Table) 09/28/18 12:48 Blood Culture - Final Blood No Growth after 144 hours
--- NOTE | 2018-10-05 14:56 | P.PN ---
Subjective Progress Note Date: 10/05/18 Principal diagnosis: Postoperative day 4, status post laparoscopic appendectomy for ruptured acute appendicitis This is a 58-year-old pleasant white female patient with past medical history with no significant past medical history except for urolithiasis and hernia repair, who was admitted to the hospital on 09/28/2018 she came in with complaints of diffuse abdominal pain for 5 days, CT of abdomen and pelvis showed a ruptured acute appendicitis with moderate to severe surrounding inflammation and associated poorly defined fluid measuring 4.8 cm arising from the site of the ruptured. There was no well-defined abscess at that time. Patient was taken to surgery urgently on the same day and underwent laparoscopic appendectomy for acute ruptured appendicitis. This is postop day 4. Patient is awake and alert, she is ambulating in the room, she still has some abdominal tenderness on the right side of the abdomen, were the THALIA drain is inserted, THALIA drain is draining small amount of serous fluid. No fever or chills, room air pulse ox is 96%, lung sounds are clear to auscultation. She is tolerating oral diet, she is passing flatus. Did have a bowel movement. Initial infectious disease is following. She remains on a combination of Unasyn and Flagyl. Blood blood cell count did increase to 18.5 from 17.1 yesterday. Clinically patient is without any acute complaints. We spoke to the surgeon, and the plan is to possibly obtain a repeat CAT scan of the abdomen and pelvis tomorrow if still white blood cell count continues to increase. On 10/05/2018 patient seen in follow-up on medical surgical floor. Since postop day 7 status post laparoscopic appendectomy for acute ruptured appendicitis. She is awake and alert, in no acute distress, THALIA drain on the right sided abdomen is draining small amount of serous fluid, patient denies any dyspnea, denies any chest pain, room air pulse ox is 98%, she is afebrile. Respirations are nonlabored. She is tolerating ambulation, abdomen is soft, nontender, patient is passing bowel movements and gas. Today's lab work shows persistence of leukocytosis, with white blood cell count of 18.4, however the pro-calcitonin level came back negative at 0.06, suggesting absence of infection. Patient is on combination of Flagyl and Zosyn for intra-abdominal sepsis, and cultures from the peritoneum showed anaerobic gram-negative bacilli , and E. coli. ID service is following. Was in a stable, patient is hemodynamically stable. She is tolerating oral diet, although her appetite is poor Objective - Vital Signs Vital signs: Vital Signs Temp 98 F 10/05/18 07:00 Pulse 94 10/05/18 07:00 Resp 17 10/05/18 07:00 BP 137/85 10/05/18 07:00 Pulse Ox 98 10/05/18 07:00 Intake & Output 10/04/18 10/05/18 10/05/18 18:59 06:59 18:59 Intake Total 420 700 Output Total 2 Balance 420 698 Intake: Intake, IV Titration 100 Amount Piperacillin-Tazobactam 3 100 .375 gm In Sodium Chloride 0.9% 100 ml @ 25 mls/hr IVPB Q8HR [facility] Rx# :[id number] Oral 420 600 Output: Drainage 2 Abdomen 2 Other: Voiding Method Toilet Toilet # Voids 1 2 - Exam GENERAL EXAM: Alert, pleasant, 58-year-old white female comfortable in no apparent distress. HEAD: Normocephalic/atraumatic. EYES: Normal reaction of pupils, equal size. Conjunctiva pink, sclera white. NOSE: Clear with pink turbinates. THROAT: No erythema or exudates. NECK: No masses, no JVD, no thyroid enlargement, no adenopathy. CHEST: No chest wall deformity. Symmetrical expansion. LUNGS: Equal air entry with no crackles, wheeze, rhonchi or dullness. CVS: Regular rate and rhythm, normal S1 and S2, no gallops, no murmurs, no rubs ABDOMEN: Soft, slight tenderness, on the right abdomen, at the THALIA insertion site with pushing. No hepatosplenomegaly, normal bowel sounds, no guarding or rigidity. There is a THALIA drain in the right abdomen, which is draining minimal serous output EXTREMITIES: No clubbing, no edema, no cyanosis, 2+ pulses and upper and lower extremities. MUSCULOSKELETAL: Muscle strength and tone normal. SPINE: No scoliosis or deformity SKIN: No rashes CENTRAL NERVOUS SYSTEM: Alert and oriented -3. No focal deficits, tone is normal in all 4 extremities. PSYCHIATRIC: Alert and oriented -3. Appropriate affect. Intact judgment and insight. - Labs CBC & Chem 7: 10/05/18 06:10 10/03/18 09:08 Labs: Abnormal Lab Results - Last 24 Hours (Table) 10/05/18 Range/Units 06:10 WBC 18.4 H (3.8-10.6) k/uL Plt Count 488 H (150-450) k/uL Neutrophils # 15.1 H (1.3-7.7) k/uL Microbiology - Last 24 Hours (Table) 09/28/18 12:48 Blood Culture - Final Blood No Growth after 144 hours Assessment and Plan Plan: Assessment: #1. Acute perforated appendicitis, status post laparoscopic appendectomy post op day 7 #2. Leukocytosis, secondary to above, persistent #3. Peritoneal sepsis, wound culture from the appendectomy was positive for E. coli, and anaerobic gram-negative bacilli, final cultures pending. Plan: ID service is following, pro-calcitonin level came back negative, no fever or chills, continue encouraging deep breathing and coughing, ambulation, abdomen is soft, nontender, THALIA drain with minimal serous output. I performed a history & physical examination of the patient and discussed their management with my nurse practitioner, Martha Neff. I reviewed the nurse practitioner's note and agree with the documented findings and plan of care. Lung sounds are positive for clear sounds. The findings and the impression was discussed with the patient. I attest to the documentation by the nurse practitioner. Time with Patient: Less than 30
--- NOTE | 2018-10-06 06:52 | PN ---
PROGRESS NOTE DATE OF SERVICE: 10/05/2018 REASON FOR FOLLOWUP: Acute appendicitis with abdominal abscess and elevated white count. INTERVAL HISTORY: The patient is currently afebrile. She is breathing comfortably. Denies having any chest pain or shortness of breath or cough. No worsening abdominal pain. No nausea, vomiting. Still no output in the THALIA drain. PHYSICAL EXAMINATION: On examination, blood pressure 158/84 with a pulse of 67, temperature 98.1. She is 100% on room air. General description is a a middle aged female lying in bed in no distress. RESPIRATORY SYSTEM: Unlabored breathing, clear to auscultation anteriorly. HEART: S1, S2. Regular rate and rhythm. ABDOMEN: Soft, minimally tender. No guarding or rigidity. EXTREMITIES: No edema of feet. LABS: White count still elevated at 18.4. DIAGNOSTIC IMPRESSION AND PLAN: Patient with acute appendicitis status post appendectomy now with persistently elevated white count more likely related to the fluid collection which is currently not being drained by the THALIA. She may benefit from either adjustment of the drainage catheter or a CT-guided drainage. This was discussed with the nurse practitioner for the surgical team. Continue with supportive care. MMODL / IJN: [id number] /
[2018-10-06 08:11] LABS: Basophils # (A) 0.1 k/uL (0-0.2); Basophils % (A) 1 %; Eosinophils # (A) 0.4 k/uL (0-0.7); Eosinophils % (A) 2 %; HCT 42.8 % (34.0-46.0); HGB 13.8 gm/dL (11.4-16.0); Lymphocytes % (A) 12 %; MCH 31.3 pg (25.0-35.0); MCHC 32.2 g/dL (31.0-37.0); MCV 97.3 fL (80.0-100.0); Mean Platelet Volume 6.5; Monocytes # (A) 0.6 k/uL (0-1.0); Monocytes % (A) 4 %; Neutrophils # (A) 12.9 k/uL (1.3-7.7); Neutrophils % (A) 80 %; Platelet Count 533 k/uL (150-450); RBC 4.39 m/uL (3.80-5.40); RDW 12.6 % (11.5-15.5); WBC 16.2 k/uL (3.8-10.6)
[2018-10-06 08:51] VITALS: BP 130/93; PULSE 83; RESP 18; TEMP 98.3
[2018-10-06] MEDS: PIPERACILLIN-TAZOBACTAM 3.375 GM in SODIUM CHLORIDE 0.9% 100 ML IVPB SCH (08:53)
[2018-10-06] MEDS: ENOXAPARIN 40 MG/0.4 ML SYRINGE SQ SCH (08:54)
[2018-10-06] MEDS: DOCUSATE 100 MG CAP PO SCH (08:54)
[2018-10-06] MEDS: metroNIDAZOLE 500 MG TAB PO SCH (08:54)
[2018-10-06] MEDS: PANTOPRAZOLE 40 MG TABLET PO SCH (08:54)
[2018-10-06 11:13] VITALS: BMI 28.3
[2018-10-06] MEDS: ACETAMINOPHEN TAB 325 MG TAB PO PRN (12:36)
--- NOTE | 2018-10-06 13:06 | P.DS ---
Providers Date of admission: 09/29/18 15:22 Expected date of discharge: 10/06/18 Attending physician: Trevor Boyer Consults: 09/28/18 13:54 Consult Physician Routine Consulting Provider: Carmen Tatum Consult Reason/Comments: medical management Do you want consulting provider notified?: Yes 09/28/18 15:50 Consult Physician Routine Consulting Provider: Moo Franco Consult Reason/Comments: Medical management Do you want consulting provider notified?: Yes 09/28/18 15:55 Consult Physician Routine Consulting Provider: Karson Saul Consult Reason/Comments: Perforated appendicitis Do you want consulting provider notified?: Yes Primary care physician: Moo Franco Hospital Course: 58-year-old female who underwent laparoscopic appendectomy for acute ruptured appendicitis. Patient has done well postoperatively. Her WBC did climb postoperatively peaking at 18.5 which delayed her discharge. Today it is 16.2. She has been asymptomatic. infectious disease has followed patient during hospitalization. She is stable for discharge home today. Please see EMR further hospital course details. DISCHARGE DIAGNOSIS: 1. Acute ruptured appendicitis, status post laparoscopic appendectomy 2. Leukocytosis Nurse practitioner note has been reviewed by physician. Signing provider agrees with the documented findings, assessment, and plan of care. Patient Condition at Discharge: Stable Plan - Discharge Summary Discharge Rx Participant: No New Discharge Prescriptions: New Docusate [Colace] 100 mg PO BID #30 cap HYDROcodone/APAP 5-325MG [[place] 5-325] 2 each PO Q6HR PRN #24 tab PRN Reason: Moderate To Severe Pain Ciprofloxacin HCl [Cipro] 500 mg PO Q12HR #20 tablet metroNIDAZOLE [Flagyl] 500 mg PO TID #30 tab No Action Naproxen Sodium [Aleve] 440 mg PO DAILY PRN PRN Reason: Pain Discharge Medication List Naproxen Sodium [Aleve] 440 mg PO DAILY PRN 09/28/18 [History] Docusate [Colace] 100 mg PO BID #30 cap 10/02/18 [Rx] HYDROcodone/APAP 5-325MG [[place] 5-325] 2 each PO Q6HR PRN #24 tab 10/02/18 [Rx] Ciprofloxacin HCl [Cipro] 500 mg PO Q12HR #20 tablet 10/06/18 [Rx] metroNIDAZOLE [Flagyl] 500 mg PO TID #30 tab 10/06/18 [Rx] Follow up Appointment(s)/Referral(s): Moo Franco DO [Primary Care Provider] - 1-2 days [facility], [NON-STAFF] - As Needed Karson Saul MD [STAFF PHYSICIAN] - 1 Week Trevor Boyer MD [STAFF PHYSICIAN] - 1 Week Activity/Diet/Wound Care/Special Instructions: No driving while taking [place] No lifting over 10 pounds You may shower. No soaking or tub baths Very light activity until you are reevaluated at your follow up appointment with your surgeon Continue THALIA drain THALAI will be discontinued at follow up appointment Discharge Disposition: HOME SELF-CARE
--- NOTE | 2018-10-06 14:55 | PN ---
PROGRESS NOTE DATE OF SERVICE: 10/06/2018 REASON FOR FOLLOW UP: Acute appendicitis with abscess and leukocytosis. INTERVAL HISTORY: The patient is currently afebrile. She is breathing comfortably. Denies having any chest pain or any cough. No abdominal pain. No output in the drainage catheter. No nausea, vomiting, or any diarrhea. PHYSICAL EXAMINATION: Blood pressure is 130/93 with a pulse of 83, temperature 98.3, she is 99% on room air. General description in a middle-aged female, up in the bed in no distress. RESPIRATORY SYSTEM: Unlabored breathing, clear to auscultation anteriorly. HEART: S1, S2. Regular rate and rhythm. ABDOMEN: Soft, no tenderness. LABS: Hemoglobin 13.1, white count of 18.2, creatinine 0.73. DIAGNOSTIC IMPRESSION AND PLAN: Patient did have a ruptured appendicitis, status post appendectomy. Culture with an E coli anaerobic gram-negative. Patient's white count has showed a normal trend. There was a fluid collection. However, surgery recommended against drainage of the same. She will be switched over to Cipro and Flagyl and monitored closely in the outpatient setting. Patient advised if any worsening abdominal pain or any fever to let us know right away. Continue supportive care. MMODL / IJN: [id number] /
--- NOTE | 2018-10-07 01:10 | P.PN ---
Subjective Progress Note Date: 10/06/18 Principal diagnosis: Acute ruptured appendicitis status post laparoscopic surgery This is a pleasant 58 years old female with no significant past medical history except for urolithiasis and hernia repair. Presents with right lower quadrant abdominal pain. Computed tomography scan of the abdomen showed perforated acute appendicitis with surrounding inflammation. A shunt was taken to operation room where she underwent Laparoscopic appendectomy. Patient seen postoperatively lying in bed, fully awake and oriented. Not in distress. Her pain in the surgical site is slightly uncontrolled and she asking a little bit more of pain medication. No nausea vomiting. She is tolerating liquid diet ( juice and water) . No bowel movement or passing gases yet. She is on pain medication, Lovenox for DVT prophylaxis as per primary surgical team. Also she is on Flagyl and Protonix. IV fluids with normal saline at 100 mL per hour. 09/29/2018 Patient status post emergent laparoscopic appendectomy for perforated appendix. Today is postop day #1. She has mild to moderate pain around the surgery site. However abdominal examination looks more benign. No nausea vomiting. No bowel movement T8. No chest pain or dyspnea. No fever. Rest of White is looks stable. Her leukocytosis is slightly worsened from 15.2 up to 19.9 K. Creatinine is 0.7. Electrolytes within normal limits. Once culture still pending. Patient remains on Zosyn for postoperative bacterial coverage. Infectious disease and pulmonary team R following the case as well. 09/30/2018 Patient feels better with less abdominal pain and tolerating diet well with no nausea or vomiting. Wound looks close with no surrounding cellulitis but there is minimal purulent discharge, drain is in place. Patient continue on Zosyn. Wound culture showing gram-negative bacilli final result is pending. Leukocytosis improvement from 19.9 down to 15.8 K. Barrientos flaps were reviewed and are unremarkable except for mild anemia at 10.6 10/01/18 pt feels better , abdominal pain is improving ,no chest pain or dyspnea, pt is mobile , tolerating diet, her leukocytosis is improving. vital stable, pt is been followed up by many customer support consultant including pulmonary and ID disease. 10/02/2018 Patient still have some minimal pain around her surgery site, however clinically she is doing well. Vitas is stable with her leukocytosis got worse today up to 18.5 K. Culture showing E. coli and an aerobic gram-negative bacilli pending final culture results. Infectious disease follow-up is appreciated, currently she is on Flagyl and Unasyn. 10/03/2018 Patient seen and examined at bedside. Her right quadrant abdominal pain and wound are healing. This abdominal pain and tenderness. less purulent discharge. However patient still have leukocytosis at 18 K. Creatinine 0.9 last time was checked. However want cultures coming back positive for gram- negative bacilli in the anaerobic culture on the top of E. coli in the aerobic culture. Infectious disease been consulted already. 10/04/2018 No change in the patient's clinical condition exit for her right lower quadrant abdominal pain and tenderness are improving, drain is still in place. Hemodynamically stable. While leukocytosis looks the same 18.3. Patient remains on antibiotics. No much discharge from the wound drain. Patient was placed back on Zosyn. 10/05/2018 Patient right lower quadrant pain is improving, less tenderness. Drain still in place. Wound looks healing. Patient denies chest pain or dyspnea.vital signs stable. Temperature 98.1. Heart rate 67, respiratory rate 14, and blood pressure 126/80. patient still has persistent leukocytosis around 18.4 K today. Mainly neutrophilia. Her antibiotics has been changed to Zosyn which she is getting now. Patient disease team are following the case. Culture and anaerobic wound showing gram-negative bacilli, while aerobic culture showing E. coli. 10/06/2018 Patient is postoperative day 8 status post laparoscopic appendectomy for acute ruptured appendicitis. Patient is being continued on antibiotics. Cultures showed E. coli and ID has seen the patient. No fever no chills. Leukocytosis is trending down. Patient is being discharged home today. Tolerating oral diet and no other acute overnight issues. No complaints of chest pain or shortness of breath. No nausea vomiting or abdominal pain. Neck some Current medications reviewed. Objective - Vital Signs Vital signs: Vital Signs Temp 98.3 F 10/06/18 08:50 Pulse 83 10/06/18 08:50 Resp 18 10/06/18 08:50 BP 130/93 10/06/18 08:50 Pulse Ox 99 10/06/18 08:50 Intake & Output 10/05/18 10/06/18 10/06/18 18:59 06:59 18:59 Intake Total 910 Output Total 2 Balance 908 Weight 65.771 kg Intake: Intake, IV Titration 260 Amount IV Fluid Continuation 1, 60 000 ml @ 0 mls/hr IV .[facility] Rx#:[id number] Piperacillin-Tazobactam 3 200 .375 gm In Sodium Chloride 0.9% 100 ml @ 25 mls/hr IVPB Q8HR [facility] Rx# :[id number] Oral 650 Output: Drainage 2 Abdomen 2 Other: Voiding Method Toilet Toilet # Voids 1 2 - Exam PHYSICAL EXAMINATION: Patient is lying in the bed comfortably, no acute distress, awake alert and oriented.. HEENT: Normocephalic. Neck is supple. Pupils reactive. Nostrils clear. Oral cavity is moist. Ears reveal no drainage. Neck reveals no JVD, carotid bruits, or thyromegaly. CHEST EXAMINATION: Trachea is central. Symmetrical expansion. Lung aguilar clear to auscultation and percussion. CARDIAC: Normal S1, S2 with no gallops. No murmurs ABDOMEN: Soft. Bowel sounds normal. No organomegaly. No abdominal bruits. Extremities: reveal no edema. No clubbing or cyanosis Neurologically awake, alert, oriented x3 with well-coordinated movements. No focal deficits noted Skin: No rash or skin lesions. Psychiatric: Coperative. Nonsuicidal Musculoskeletal: No joint swelling or deformity. Normal range of motion. - Labs CBC & Chem 7: 10/06/18 07:53 10/03/18 09:08 Labs: Abnormal Lab Results - Last 24 Hours (Table) 10/06/18 Range/Units 07:53 WBC 16.2 H (3.8-10.6) k/uL Plt Count 533 H (150-450) k/uL Neutrophils # 12.9 H (1.3-7.7) k/uL Assessment and Plan Assessment: Perforated appendicitis, status post laparoscopic appendectomy Postoperative pain, controlled Leukocytosis, secondary to above Abnormal urinalysis, mostly related to her appendicitis and dehydration. Plan: This is a pleasant 58 years old female, she is a status post laparoscopic appendectomy. Continue with DVT prophylaxis and pain management as per primary surgical team. Currently she is on Lovenox. She is on Protonix for GI prophylaxis. Infectious disease has been consulted. Antibiotics per ID recommendations. Patient is being discharged on Cipro and Flagyl. Labs and medication were reviewed.. Continue same treatment. Continue with symptomatic treatment. Resume home medication. Monitor lytes and vitals. DVT and GI prophylaxis. Patient is being discharged home today. Time with Patient: Greater than 30
--- NOTE | 2018-10-08 16:26 | CDI ---
Documentation Clarification Form Date: 10/07/2018 1:25:00 PM From: Christina London Vira Johnson, Global Compensation Director Hours-8:30 am & 5 pm Latisha Admit Date: 09/29/2018 3:22:00 PM Patient Name: Alejandra Ayala Visit Number: [id number] Discharge Date: 10/06/2018 3:19:00 PM ATTENTION: The Clinical Documentation Specialists (CDI) and [facility] Coding Staff appreciate your assistance in clarifying documentation. Please respond to the clarification below the line at the bottom and electronically sign. The CDI & [facility] Coding staff will review the response and follow-up if needed. Please note: Queries are made part of the Legal Health Record. If you have any questions, please contact the author of this message via ITS. Dr. Trevor Boyer Intra- abdominal and peritoneal Sepsis is mentioned in PNs, Consult History/Risk Factors: Appendicitis w/ abcess WBC: 15.2, 19.9, 15.8, 17.1 Blood cultures: No growth Vitals signs on admission: T 98.2, BP 136/88, RR 18, OK 98 Treatment: IV Abx ID Consult: Kg In your professional opinion, please clarify if these findings signify one of the following conditions and whether the condition is POA. Condition Sepsis ruled in Sepsis ruled out SIRS, without underlying infectious process Severe Sepsis Septic Shock Other, please specify Unable to determine Present on Admission Yes No Sepsis was present at admission. Sepsis ruled in. Sepsis due to gangrenous appendicitis MTDD
== END 2018-10-06 15:19 | disposition home or self-care (01) | DRG 853 ==
LOC: EC 12:15 → 4SSUR 13:07 → OBSVTOIN 09-29 15:22
PROVIDERS: ADMIT Surgery; ATTEND Surgery
PROC: 0DTJ4ZZ Resection of Appendix, Percutaneous Endoscopic Approach (ICD-10-PCS; principal; 2018-09-28 16:25)
DX: A41.51 Sepsis due to Escherichia coli [E. coli] (principal); K35.33 Acute appendicitis with perforation, localized peritonitis, and gangrene, with abscess; E86.0 Dehydration; D64.9 Anemia, unspecified; R82.90 Unspecified abnormal findings in urine; D72.829 Elevated white blood cell count, unspecified; B96.89 Other specified bacterial agents as the cause of diseases classified elsewhere; Z71.3 Dietary counseling and surveillance; Z16.11 Resistance to penicillins; Z87.442 Personal history of urinary calculi; Z82.49 Family history of ischemic heart disease and other diseases of the circulatory system; Z83.79 Family history of other diseases of the digestive system; Z82.61 Family history of arthritis
CPT/HCPCS: 36415; 74177; 80048; 80053; 81001; 82150; 83605; 83690; 84145; 85025; 86677; 87040; 87070; 87075; 87077; 87086; 87186; 87205; 87324; 88304; 96374; 99285

== ENCOUNTER → 2019-08-02 | Outpatient (CLI) | payer OTHER ==
--- NOTE | 2019-08-03 11:18 | MM ---
Reason for exam: screening (asymptomatic). Last mammogram was performed 1 year and 6 months ago. History: Patient is postmenopausal. Taking progesterone. Physical Findings: A clinical breast exam by your physician is recommended on an annual basis and results should be correlated with mammographic findings. MG Screening Mammo w CAD Bilateral CC and MLO view(s) were taken. Prior study comparison: January 20, 2018, bilateral MG screening mammo w CAD. October 26, 2014, mammogram. The breast tissue is heterogeneously dense. This may lower the sensitivity of mammography. Finding: There is a 6 mm circumscribed, obscured round mass in the upper outer quadrant, middle posterior position of the left breast. Focal asymmetry left anterior outer CC view. ASSESSMENT: Incomplete: need additional imaging evaluation, BI-RAD 0 RECOMMENDATION: Special view mammogram of the left breast. If lesion persists on supplemental views, image directed ultrasound is recommended. [facility] will attempt to contact patient to return for supplemental views and ultrasound if indicated.
== END ==
LOC: RADMAMWWP 13:13
PROVIDERS: ATTEND Obstetrics & Gynecology
DX: Z12.31 Encounter for screening mammogram for malignant neoplasm of breast (principal); R92.8 Other abnormal and inconclusive findings on diagnostic imaging of breast
CPT/HCPCS: 77067

== ENCOUNTER → 2019-08-02 | Outpatient (CLI) | payer OTHER | END | disposition home or self-care (01) | LOC: LABWHC1 13:23 | PROVIDERS: ATTEND Family Medicine | DX: E34.9 Endocrine disorder, unspecified (principal); Z79.890 Hormone replacement therapy | CPT/HCPCS: 36415; 82670; 84144 ==

== ENCOUNTER → 2019-08-13 | Outpatient (CLI) | payer OTHER ==
--- NOTE | 2019-08-16 10:41 | MM ---
Reason for exam: additional evaluation requested from abnormal screening. Last mammogram was performed less than 1 month ago. History: Patient is postmenopausal. Taking estrogen for 5 years. Taking progesterone for 5 years. Physical Findings: Nurse did not find any significant physical abnormalities on exam. MG Work Up Mamm w CAD LT Spot compression CC, spot compression MLO, spot compression ML, and ML view(s) were taken of the left breast. Prior study comparison: August 02, 2019, bilateral MG screening mammo w CAD. January 20, 2018, bilateral MG screening mammo w CAD. The breast tissue is heterogeneously dense. This may lower the sensitivity of mammography. There is a 4mm central upper left round circumscribed mass at midddle depth. Distotion of the superior breast 4cm from nipple does not persist on other views. These results were verbally communicated with the patient and result sheet given to the patient on 08/13/19. ASSESSMENT: Incomplete: need additional imaging evaluation, BI-RAD 0 RECOMMENDATION: Ultrasound of the left breast. superior breast
--- NOTE | 2019-08-16 10:42 | USB ---
Reason for exam: additional evaluation requested from abnormal screening. History: Patient is postmenopausal. Taking estrogen for 5 years. Taking progesterone for 5 years. US Breast Workup Limited LT Left limited breast ultrasound including focal area of concern, retroareolar and axilla demonstrates a 6 x 2 x 5mm oval, cystic, hypoechoic lesion at 12 o'clock likely deep cyst in dense tissue, a 5 x 3 x 5mm oval, cystic, hypoechoic lesion at 12 o'clock likely deep cysts in dense tissue and duct with debris at the posterior nipple. These results were verbally communicated with the patient and result sheet given to the patient on 08/13/19. ASSESSMENT: Probably benign, BI-RAD 3 RECOMMENDATION: Follow-up diagnostic mammogram and ultrasound of the left breast in 6 months.
== END | disposition home or self-care (01) ==
LOC: RADMAMWWP 15:03
PROVIDERS: ATTEND Obstetrics & Gynecology
DX: R92.8 Other abnormal and inconclusive findings on diagnostic imaging of breast (principal)
CPT/HCPCS: 77065

== ENCOUNTER → 2021-09-25 | Outpatient (CLI) | payer OTHER ==
--- NOTE | 2021-09-25 09:16 | MM ---
Reason for exam: additional evaluation requested from prior study. Last mammogram was performed 2 years and 1 month ago. History: Patient is postmenopausal. Taking estrogen for 5 years. Taking progesterone for 5 years. Physical Findings: Nurse did not find any significant physical abnormalities on exam. MG 3D Diag Mammo W/Cad LINA Bilateral CC and MLO view(s) were taken. Prior study comparison: August 13, 2019, left breast MG work up mamm w CAD LT. August 02, 2019, bilateral MG screening mammo w CAD. The breast tissue is heterogeneously dense. This may lower the sensitivity of mammography. No significant new findings when compared with previous films. These results were verbally communicated with the patient and result sheet given to the patient on 09/25/21. ASSESSMENT: Incomplete: need additional imaging evaluation, BI-RAD 0 RECOMMENDATION: Ultrasound of the left breast.
--- NOTE | 2021-09-25 09:19 | USB ---
Reason for exam: additional evaluation requested from abnormal screening. History: Patient is postmenopausal. Taking estrogen for 5 years. Taking progesterone for 5 years. US Breast LT Technologist: Kaylin Leblanc Left complete breast ultrasound includes all four quadrants, the retroareolar region and axilla. Finding demonstrates a 0.5 x 0.8 x 0.3cm oval, heterogenous area, possible cyst cluster at 12 o'clock, 6 month follow up recommended and ductal ectasia at the nipple with internal echoes (debris). Debris has partially cleared compared to 08/13/19. These results were verbally communicated with the patient and result sheet given to the patient on 09/25/21. ASSESSMENT: Probably benign, BI-RAD 3 RECOMMENDATION: Ultrasound of the left breast in 6 months.
== END | disposition home or self-care (01) ==
LOC: RADMAMWWP 09-19 07:32
PROVIDERS: ATTEND Obstetrics & Gynecology
DX: R92.8 Other abnormal and inconclusive findings on diagnostic imaging of breast (principal)
CPT/HCPCS: 77062; 77066

== ENCOUNTER → 2022-04-18 | Outpatient (CLI) | payer OTHER ==
--- NOTE | 2022-04-18 09:03 | USB ---
Reason for Exam: Follow-up at short interval from prior study. Patient History: Menarche at age 13. First Full-Term at age 28. Postmenopausal. Currently using Estrogen, for 5 years. Currently using Progesterone, for 5 years. Risk Values: Katerina 5 year model risk: 1.6%. NCI Lifetime model risk: 8.1%. Prior Study Comparison: 08/02/2019 Bilateral Screening Mammogram, [facility]. 08/13/2019 Left Diagnostic Mammogram, [facility]. 09/25/2021 Bilateral Diagnostic Mammogram, [facility]. Findings: The upper section of the breast of the left breast, the axilla of the left breast and the retroareolar of the left breast were scanned. Cyst cluster is noted at the left 12:00 position measuring 0.6 x 0.4 cm. There is also retroareolar cyst noted. No solid masses are seen. Overall Assessment: Probably benign, BI-RAD 3 Management: Diagnostic Breast Ultrasound of the left breast in 6 months. A clinical breast exam by your physician is recommended on an annual basis and results should be correlated with mammographic findings. Electronically signed and approved by: Russel Swan M.D. Radiologis
== END | disposition home or self-care (01) ==
LOC: RADUSWWP 08:35
PROVIDERS: ATTEND Obstetrics & Gynecology
DX: R92.8 Other abnormal and inconclusive findings on diagnostic imaging of breast (principal); Z78.0 Asymptomatic menopausal state

== ENCOUNTER → 2022-07-30 | Outpatient (CLI) | payer OTHER ==
[2022-07-30 20:03] LABS: Estradiol 20.1 pg/mL; Follicle Stimulating Hormone 41.1 mIU/mL; T4, Free (Free Thyroxine) 0.84 ng/dL (0.800-1.800)
== END | disposition home or self-care (01) ==
LOC: LABWHC1 14:07
PROVIDERS: ATTEND Obstetrics & Gynecology
DX: G47.9 Sleep disorder, unspecified (principal); R61 Generalized hyperhidrosis; Z79.890 Hormone replacement therapy
CPT/HCPCS: 36415; 82670; 83001; 84144; 84403; 84439; 84443; 84481

== ENCOUNTER 2022-08-22 02:50 | Observation (INO) | payer OTHER ==
[2022-08-22] MEDS ORDERED: KETOROLAC 15 MG/ML 1 ML VIAL IVP STA (03:20)
[2022-08-22] MEDS ORDERED: ONDANSETRON 4 MG/2 ML VIAL IVP STA (03:20)
[2022-08-22] MEDS ORDERED: SODIUM CHLORIDE 0.9% 1,000 ML IV ONE (03:20)
[2022-08-22 03:36] LABS: Amorphous Sediment,Urine Occasional /hpf; Appearance,Urine Turbid (Clear); Bacteria,Urine Rare /hpf; Bilirubin,Urine Negative (Negative); Blood,Urine Large (Negative); Color,Urine Light Yellow; Glucose,Urine (UA) Negative (Negative); Ketones,Urine 1+ (Negative); Leukocyte Esterase,Urine Negative (Negative); Mucus,Urine Rare /hpf; Nitrite,Urine Negative (Negative); Protein,Urine Trace (Negative); RBC,Urine 86 /hpf (0-5); Specific Gravity,Urine 1.015 (1.001-1.035); Squamous Epithelial Cell,Urine 5 /hpf (0-4); Urobilinogen,Urine <2.0 mg/dL (<2.0)
[2022-08-22 03:57] LABS: Basophils % (A) 0 %; Eosinophils # (A) 0.1 k/uL (0-0.7); Eosinophils % (A) 1 %; HCT 37.6 % (34.0-46.0); HGB 13.3 gm/dL (11.4-16.0); Lymphocytes # (A) 0.9 k/uL (1.0-4.8); Lymphocytes % (A) 5 %; MCH 32.5 pg (25.0-35.0); MCHC 35.4 g/dL (31.0-37.0); Mean Platelet Volume 8.4; Monocytes # (A) 0.4 k/uL (0-1.0); Monocytes % (A) 2 %; Neutrophils # (A) 16.4 k/uL (1.3-7.7); Neutrophils % (A) 91 %; Platelet Count 297 k/uL (150-450); RBC 4.09 m/uL (3.80-5.40); RDW 12.4 % (11.5-15.5)
[2022-08-22 04:15] LABS: Albumin 4.6 g/dL (3.5-5.0); Calcium 9.9 mg/dL (8.4-10.2); Magnesium 1.9 mg/dL (1.6-2.3); Total Bilirubin 0.9 mg/dL (0.2-1.3); Total Protein 7.6 g/dL (6.3-8.2)
--- NOTE | 2022-08-22 04:43 | CT ---
EXAMINATION TYPE: CT abdomen pelvis wo con DATE OF EXAM: 08/22/2022 HISTORY: Kidney stone. Left-sided flank pain with nausea and vomiting. CT DLP: 437.9 mGycm. Automated Exposure Control for Dose Reduction was Utilized. TECHNIQUE: CT scan of the abdomen and pelvis is performed without oral or IV contrast. COMPARISON: CT abdomen and pelvis October 03, 2018 FINDINGS: Within the limitations of a non-contrast study, the following observations are made. LUNG BASES: No significant abnormality is appreciated. LIVER/GB: No significant abnormality is appreciated. PANCREAS: No significant abnormality is seen. SPLEEN: No significant abnormality is seen. ADRENALS: No significant abnormality is seen. KIDNEYS: No right-sided renal stone or hydronephrosis. No intraluminal luminal calculus in the bladde r. There are 2 tiny lower pole left renal calculi coronal images 46 and 47. There is 1 to 2 mm calculus in the proximal left ureter axial image 79. There is additional 5 mm calculus in the proximal to mid ureter sagittal image 70. Just before this there is 2 mm calculus. There is mild to moderate left-byron ed hydronephrosis with moderate to severe left-sided perinephric fluid/fat stranding. BOWEL: No significant abnormality is seen. GENITAL ORGANS: Anteverted uterus. LYMPH NODES: No greater than 1cm abdominal or pelvic lymph nodes are appreciated. OSSEOUS STRUCTURES: Vacuum disc phenomenon with moderate disc space narrowing L5-S1 level is redemons trated. OTHER: No significant additional abnormality is seen. IMPRESSION: There are 3 calculi in the proximal left ureter on current study with most distal measuri ng 5 mm causing mild to moderate left-sided hydronephrosis.
[2022-08-22] MEDS ORDERED: NALOXONE 0.4 MG/ML 1 ML VIAL IV PRN (05:16)
--- NOTE | 2022-08-22 05:17 | ED ---
General Adult HPI - General Chief complaint: Back Pain/Injury Stated complaint: Back Pain Time Seen by Provider: 08/22/22 03:02 Source: patient Mode of arrival: ambulatory Limitations: no limitations - History of Present Illness Initial comments: This is a 62-year-old female with a past medical history including previous kidney stones presents emergency department for acute left-sided flank pain and nausea and vomiting. The patient stated that she was eating dinner when as soon as she was finished she started to have significant left-sided flank pain that had an acute episode of nausea, vomiting and diarrhea. The patient stated that she felt that it was similar to her previous episodes of kidney stones. The patient on evaluation stated she had continued left-sided flank pain with radiation to the groin as well as nausea and vomiting. The patient denied any fevers and chills however and denied any trauma to the area. The patient was resting in bed comfortable however. - Related Data Home Medications Medication Instructions Recorded Confirmed Ascorbic Acid [Vitamin C] 1,000 mg PO DAILY 10/10/21 10/10/21 Cholecalciferol [Vitamin D3 (25 75 mcg PO DAILY 10/10/21 10/10/21 Mcg = 1000 Iu)] Curcumin Supplement 1 dose PO DAILY 10/10/21 10/10/21 Dhea Supplement Unk Dose 1 dose PO DAILY 10/10/21 10/10/21 Folate Supplement 1 dose PO DAILY 10/10/21 10/10/21 [place]-3 Fatty Acids/Fish Oil [Fish 1 each PO DAILY 10/10/21 10/10/21 Oil 1,000 mg Softgel] Progesterone, Micronized 400 mg PO HS 10/10/21 10/10/21 [Progesterone] Ubidecarenone [Co Q-10] 100 mg PO Q2D 10/10/21 10/10/21 Allergies Allergy/AdvReac Type Severity Reaction Status Date / Time No Known Allergies Allergy Verified 10/12/21 09:01 Review of Systems ROS Statement: Those systems with pertinent positive or pertinent negative responses have been documented in the HPI. ROS Other: All systems not noted in ROS Statement are negative. Past Medical History Past Medical History: No Reported History Additional Past Medical History / Comment(s): Urolithiasis, hypothyroid-has been on and off med for this. History of Any Multi-Drug Resistant Organisms: None Reported Past Surgical History: Hernia Repair, Tonsillectomy Additional Past Surgical History / Comment(s): lithotripsy Past Anesthesia/Blood Transfusion Reactions: No Reported Reaction Additional Past Anesthesia/Blood Transfusion Reaction / Comment(s): mom and sister PONV, pt has nausea with anesthesia Past Psychological History: No Psychological Hx Reported Smoking Status: Never smoker Past Alcohol Use History: Occasional Past Drug Use History: None Reported, Marijuana - Past Family History Father Family Medical History: Hypertension Additional Family Medical History / Comment(s): Father has some heart issues. Mother Family Medical History: Hypertension Additional Family Medical History / Comment(s): Mother had an appendectomy and knee replacement. General Exam Limitations: no limitations General appearance: alert, in no apparent distress Head exam: Present: atraumatic, normocephalic Eye exam: Present: normal appearance, PERRL Pupils: Present: normal accommodation ENT exam: Present: normal exam, normal oropharynx, mucous membranes moist Neck exam: Present: normal inspection, full ROM Respiratory exam: Present: normal lung sounds bilaterally Cardiovascular Exam: Present: regular rate, normal rhythm, normal heart sounds GI/Abdominal exam: Present: soft, normal bowel sounds Extremities exam: Present: normal inspection, full ROM Back exam: Present: normal inspection, full ROM Neurological exam: Present: alert, oriented X3, CN II-XII intact Psychiatric exam: Present: normal affect, normal mood Skin exam: Present: warm, dry Course Vital Signs 08/22/22 08/22/22 08/22/22 02:54 03:10 04:00 Temperature 98.0 F Pulse Rate 98 84 80 Respiratory 18 16 16 Rate Blood Pressure 162/84 152/78 143/80 O2 Sat by Pulse 95 98 98 Oximetry 08/22/22 06:57 Temperature 98 F Pulse Rate 92 Respiratory 16 Rate Blood Pressure 123/84 O2 Sat by Pulse 99 Oximetry Medical Decision Making - Medical Decision Making Was pt. sent in by a medical professional or institution? @ No Did you speak to anyone other than the patient for history? @No Did you review nursing and triage notes? @Triage notes were reviewed Were old charts reviewed? @No Differential Diagnosis? @Osteoskeletal strain, pyelonephritis, kidney stones EKG interpreted by me (3pts min.)? @ [none] X-rays interpreted by me (1pt min.)? @ [none] CT interpreted by me (1pt min.)? @CT of the abdomen and pelvis was obtained and was interpreted by myself showing 3 calculi in the proximal left ureter on the current study with the most distal measuring 5 mm causing mild to moderate left-sided hydronephrosis. U/S interpreted by me (1pt. min.)? @ [none] What testing was considered but not performed? (CT, X-rays, U/S, labs)? Why? @An ultrasound was considered however the patient did require CT abdomen and pelvis as it was more sensitive therefore an ultrasound was not obtained at this time. What meds were considered but not given? Why? @ [none] Did you discuss the management of the patient with other professionals? @Yes, I did discuss the case with the on-call urologist, Dr. Chaparro at 0515. The patient herself stated that she has never been able to pass any stones around 5 mm and did require lithotripsy in the past. Due to this, the on-call urologist was told of this and he did agree to accept the patient for admission to his service to have lithotripsy performed later today. Did you reconcile home meds? @ [none] Was smoking cessation discussed for >3mins.? @ [none] Was critical care preformed (if so, how long)? @ [none] Were there social determinants of health that impacted care today? How? (Homelessness, low income, unemployed, alcoholism, drug addiction, transportation, low edu. Level, literacy, decrease access to med. care, detention, rehab)? @None Was there de-escalation of care discussed even if they declined? (Discuss DNR or withdrawal of care, Hospice)? @No What co-morbidities impacted this encounter? (DM, HTN, Smoking, COPD, CAD, Cancer, CVA, Hep., AIDS, mental health diagnosis, sleep apnea, morbid obesity)? @None Was patient admitted / discharged? @The patient was seen and evaluated emergency department. Physical exam, the patient was resting in bed without any acute distress. Initially on arrival, urine was obtained and did show signs of kidney stones with blood in the urine. Because of this, laboratory workup was obtained and a CT abdomen and pelvis was obtained as well. There were 3 calculi noted on the left and because the patient stated that she has never been able to pass stones approximate 5 mm on her own, the on-call urologist was contacted to accept the patient for admission. He did accept the patient and the patient was told this plan and was agreeable. The patient was admitted in stable condition. Undiagnosed new problem with uncertain prognosis? @ [none] Drug Therapy requiring intensive monitoring for toxicity (Heparin, Nitro, Insulin, Cardizem)? @ [none] Were any procedures done? @ [none] Diagnosis/symptom? @Left kidney stones Acute, or Chronic, or Acute on Chronic? @Acute Uncomplicated (without systemic symptoms) or Complicated (systemic symptoms)? @Uncomplicated Side effects of treatment? @ [none] Exacerbation, Progression, or Severe Exacerbation] @ [no] Poses a threat to life or bodily function? @ [no] - Lab Data Result diagrams: 08/22/22 03:50 08/22/22 03:50 Lab Results 08/22/22 08/22/22 08/22/22 Range/Units 03:06 03:50 03:50 WBC 18.0 H (3.8-10.6) k/uL RBC 4.09 (3.80-5.40) m/uL Hgb 13.3 (11.4-16.0) gm/dL Hct 37.6 (34.0-46.0) % MCV 92.0 (80.0-100.0) fL MCH 32.5 (25.0-35.0) pg MCHC 35.4 (31.0-37.0) g/dL RDW 12.4 (11.5-15.5) % Plt Count 297 (150-450) k/uL MPV 8.4 Neutrophils % 91 % Lymphocytes % 5 % Monocytes % 2 % Eosinophils % 1 % Basophils % 0 % Neutrophils # 16.4 H (1.3-7.7) k/uL Lymphocytes # 0.9 L (1.0-4.8) k/uL Monocytes # 0.4 (0-1.0) k/uL Eosinophils # 0.1 (0-0.7) k/uL Basophils # 0.0 (0-0.2) k/uL Sodium 136 L (137-145) mmol/L Potassium 4.0 (3.5-5.1) mmol/L Chloride 104 (98-107) mmol/L Carbon Dioxide 23 (22-30) mmol/L Anion Gap 9 mmol/L BUN 13 (7-17) mg/dL Creatinine 0.85 (0.52-1.04) mg/dL Est GFR (CKD-EPI)AfAm 86 (>60 ml/min/1.73 sqM) Est GFR (CKD-EPI)NonAf 75 (>60 ml/min/1.73 sqM) Glucose 133 H (74-99) mg/dL Calcium 9.9 (8.4-10.2) mg/dL Magnesium 1.9 (1.6-2.3) mg/dL Total Bilirubin 0.9 (0.2-1.3) mg/dL AST 30 (14-36) U/L ALT 23 (4-34) U/L Alkaline Phosphatase 101 (38-126) U/L Total Protein 7.6 (6.3-8.2) g/dL Albumin 4.6 (3.5-5.0) g/dL Urine Color Light Yellow Urine Appearance Turbid H (Clear) Urine pH 8.0 (5.0-8.0) Ur Specific [place] 1.015 (1.001-1.035) Urine Protein Trace H (Negative) Urine Glucose (UA) Negative (Negative) Urine Ketones 1+ H (Negative) Urine Blood Large H (Negative) Urine Nitrite Negative (Negative) Urine Bilirubin Negative (Negative) Urine Urobilinogen <2.0 (<2.0) mg/dL Ur Leukocyte Esterase Negative (Negative) Urine RBC 86 H (0-5) /hpf Ur Squamous Epith Cells 5 H (0-4) /hpf Amorphous Sediment Occasional H (None) /hpf Urine Bacteria Rare H (None) /hpf Urine Mucus Rare H (None) /hpf Disposition Clinical Impression: Kidney stone Disposition: ADMITTED IP TO THIS [facility] Condition: Stable Is patient prescribed a controlled substance at d/c from ED?: No Time of Disposition: 05:15 Decision to Admit Reason: Admit from EC Decision Date: 08/22/22 Decision Time: 05:15
[2022-08-22] MEDS ORDERED: ONDANSETRON 4 MG/2 ML VIAL IVP PRN (09:28)
[2022-08-22] MEDS ORDERED: HYDROmorphone 0.5 MG/0.5 ML SYRINGE IVP PRN (09:29)
[2022-08-22] MEDS ORDERED: HYDROmorphone 1 MG/ML 1 ML SYRINGE IVP PRN (09:29)
--- NOTE | 2022-08-22 09:46 | P.GSHP ---
History of Present Illness H&P Date: 08/22/22 62 yo female with ahistory of stones. She presents with left flank pain and hematuria. SHe had a ct scan that shows stones in her left mid ureter with hydro. There is no obvious infection on the ua. she doesnt have success in passing stones. She has had previous stone manipulation as she couldnt pass the stone. She is still having pain. - Constitutional Constitutional: Denies chills, Denies fever - EENT Eyes: denies blurred vision, denies pain Ears, nose, mouth and throat: Denies headache, Denies sore throat - Cardiovascular Cardiovascular: Denies chest pain, Denies shortness of breath - Respiratory Respiratory: Denies cough, Denies 7 - Gastrointestinal Gastrointestinal: Denies abdominal pain, Denies diarrhea, Denies nausea, Denies vomiting - Genitourinary (Female) Genitourinary: Denies dysuria, Denies hematuria - Genitourinary (Male) Genitourinary: Denies dysuria, Denies hematuria - Musculoskeletal Musculoskeletal: Denies myalgias - Integumentary Integumentary: Denies pruritus, Denies rash - Neurological Neurological: Denies numbness, Denies weakness - Psychiatric Psychiatric: Denies anxiety, Denies depression - Endocrine Endocrine: Denies fatigue, Denies weight change Past Medical History Past Medical History: No Reported History Additional Past Medical History / Comment(s): Urolithiasis, hypothyroid-has been on and off med for this. History of Any Multi-Drug Resistant Organisms: None Reported Past Surgical History: Hernia Repair, Tonsillectomy Additional Past Surgical History / Comment(s): lithotripsy Past Anesthesia/Blood Transfusion Reactions: No Reported Reaction Additional Past Anesthesia/Blood Transfusion Reaction / Comment(s): mom and sister PONV, pt has nausea with anesthesia Past Psychological History: No Psychological Hx Reported Smoking Status: Never smoker Past Alcohol Use History: Occasional Past Drug Use History: None Reported, Marijuana - Past Family History Father Family Medical History: Hypertension Additional Family Medical History / Comment(s): Father has some heart issues. Mother Family Medical History: Hypertension Additional Family Medical History / Comment(s): Mother had an appendectomy and knee replacement. Medications and Allergies Home Medications Medication Instructions Recorded Confirmed Type Progesterone, Micronized 400 mg PO HS 10/10/21 08/22/22 History [Progesterone] estradioL [estradioL (Twice 1 patch TRANSDERM Q84H 08/22/22 08/22/22 History Weekly) 0.05 mg Patch] Allergies Allergy/AdvReac Type Severity Reaction Status Date / Time No Known Allergies Allergy Verified 08/22/22 08:42 Surgical - Exam Vital Signs Temp Pulse Resp BP Pulse Ox 98.0 F 98 18 162/84 95 08/22/22 02:54 08/22/22 02:54 08/22/22 02:54 08/22/22 02:54 08/22/22 02:54 - General mild distress well developed, well nourished - Eyes normal ocular movement, no icteric - ENT no hearing loss, no congestion - Neck no masses, trachea midline - Respiratory normal respiratory effort, clear to auscultation - Abdomen Abdomen: soft, tender, no guarding, no rigid, no rebound - Integumentary no rash, no abnormal pigmentation - Neurologic no disoriented, no combative - Psychiatric oriented to time, oriented to person, oriented to place, speech is normal, memory intact Results - Labs 08/22/22 03:50 08/22/22 03:50 Abnormal Lab Results - Last 24 Hours (Table) 08/22/22 08/22/22 08/22/22 Range/Units 03:06 03:50 03:50 WBC 18.0 H (3.8-10.6) k/uL Neutrophils # 16.4 H (1.3-7.7) k/uL Lymphocytes # 0.9 L (1.0-4.8) k/uL Sodium 136 L (137-145) mmol/L Glucose 133 H (74-99) mg/dL Urine Appearance Turbid H (Clear) Urine Protein Trace H (Negative) Urine Ketones 1+ H (Negative) Urine Blood Large H (Negative) Urine RBC 86 H (0-5) /hpf Ur Squamous Epith Cells 5 H (0-4) /hpf Amorphous Sediment Occasional H (None) /hpf Urine Bacteria Rare H (None) /hpf Urine Mucus Rare H (None) /hpf Diabetes panel 08/22/22 Range/Units 03:50 Sodium 136 L (137-145) mmol/L Potassium 4.0 (3.5-5.1) mmol/L Chloride 104 (98-107) mmol/L Carbon Dioxide 23 (22-30) mmol/L BUN 13 (7-17) mg/dL Creatinine 0.85 (0.52-1.04) mg/dL Glucose 133 H (74-99) mg/dL Calcium 9.9 (8.4-10.2) mg/dL AST 30 (14-36) U/L ALT 23 (4-34) U/L Alkaline Phosphatase 101 (38-126) U/L Total Protein 7.6 (6.3-8.2) g/dL Albumin 4.6 (3.5-5.0) g/dL Calcium panel 08/22/22 Range/Units 03:50 Calcium 9.9 (8.4-10.2) mg/dL Albumin 4.6 (3.5-5.0) g/dL Pituitary panel 08/22/22 Range/Units 03:50 Sodium 136 L (137-145) mmol/L Potassium 4.0 (3.5-5.1) mmol/L Chloride 104 (98-107) mmol/L Carbon Dioxide 23 (22-30) mmol/L BUN 13 (7-17) mg/dL Creatinine 0.85 (0.52-1.04) mg/dL Glucose 133 H (74-99) mg/dL Calcium 9.9 (8.4-10.2) mg/dL Adrenal panel 08/22/22 Range/Units 03:50 Sodium 136 L (137-145) mmol/L Potassium 4.0 (3.5-5.1) mmol/L Chloride 104 (98-107) mmol/L Carbon Dioxide 23 (22-30) mmol/L BUN 13 (7-17) mg/dL Creatinine 0.85 (0.52-1.04) mg/dL Glucose 133 H (74-99) mg/dL Calcium 9.9 (8.4-10.2) mg/dL Total Bilirubin 0.9 (0.2-1.3) mg/dL AST 30 (14-36) U/L ALT 23 (4-34) U/L Alkaline Phosphatase 101 (38-126) U/L Total Protein 7.6 (6.3-8.2) g/dL Albumin 4.6 (3.5-5.0) g/dL - Imaging CT scan - abdomen: report reviewed, image reviewed CT scan - pelvis: report reviewed, image reviewed Assessment and Plan Assessment: Impression: left ureteral stones with colic Plan: left ureteroscopy with laser lithotripsy and possible stent
[2022-08-22] MEDS ORDERED: LACTATED RINGERS 1,000 ML IV ONE ×3 (12:25→14:45)
[2022-08-22] MEDS ORDERED: SCOPOLAMINE 1 MG/72 HR PATCH TRANSDERM ONE (12:31)
[2022-08-22] MEDS ORDERED: PHENYLEPHRINE-0.9% NACL SYG 1,000 MCG/10 ML SYRINGE ONE (13:29)
[2022-08-22] MEDS ORDERED: LIDOCAINE 2% INJ 20 MG/ML (2 ML VIAL) ONE (13:29)
[2022-08-22] MEDS ORDERED: KETOROLAC 30 MG/ML 1 ML VIAL ONE (13:29)
[2022-08-22] MEDS ORDERED: PROPOFOL 10 MG/ML 20 ML VIAL IV ONE (13:29)
[2022-08-22] MEDS ORDERED: fentaNYL (PF) 50 MCG/ML 2 ML AMP ONE (13:29)
[2022-08-22] MEDS ORDERED: SODIUM CHLORIDE 0.9% 50 ML with ceFAZolin 2,000 MG IV ONE ×2 (13:33)
[2022-08-22] MEDS ORDERED: ESTRADIOL TRANSDERM SCH (14:15)
--- NOTE | 2022-08-22 14:18 | P.OP ---
Date of Procedure: 08/22/22 Preoperative Diagnosis: Left ureteral calculi Postoperative Diagnosis: Same Procedure(s) Performed: Cystoscopy, left ureteroscopy with laser lithotripsy, placement of 4.8 x 24 stent left Anesthesia: YAEL Surgeon: Napoleon Chaparro Estimated Blood Loss (ml): 0 Pathology: other (Stone) Condition: stable Disposition: PACU Indications for Procedure: Patient is 62. She has a history of stones. She has 2 stones in her left ureter 5 mm in diameter. She states she has problems passing the stones. She comes for ureteroscopy laser lithotripsy Description of Procedure: Patient brought to the operating suite. Given general anesthesia. Placed lithotomy position with sterile prep and drape. Cystoscopy Foroblique lens and 21-[place] sheath identifies a normal bladder mucosa. Both ureteral orifices are normal. The 7-[place] mini ureteroscope was passed up the left ureter up to the mid ureter where the stone was identified. There is a significant amount of edema around the stone. With the 270 laser probe the stone was broken into tiny pieces and flushed out of the ureter. I then pass the scope all the way up into the left kidney see no remaining stone. I do a pullout ureteroscopy was no remaining stone. I'll place a stent due to the edema. I'll 35 wires and passed through the cystoscope up into the left kidney and over the wires passed a 4.8 x 24 double-J catheter. The bladder is drained and the patient's awake and returned recovery room good condition. She'll be discharged home upon recovery and follow-up in the office in one week for stent removal
--- NOTE | 2022-08-22 14:19 | P.DS ---
Providers Date of admission: 08/22/22 05:16 Attending physician: Napoleon Chaparro [facility] Course: Patient presented to the emergency room with severe left ureteral colic. She has a history of stones and has been unable to pass them. She has a 5 mm midureteral stone with on proximal to it. She wishes something done for this. She comes for ureteroscopy. She undergoes a successful left ureteroscopy and laser lithotripsy. A stent was placed. She tolerates this well and will be discharged home later today. She'll follow in the office in one week for stent removal. Her condition is good. She's been given a prescription of Toradol and Cipro. Patient Condition at Discharge: Good Plan - Discharge Summary Discharge Rx Participant: No New Discharge Prescriptions: New Ketorolac [Toradol] 10 mg PO Q6HR PRN #10 tab PRN Reason: Pain Ciprofloxacin HCl [Cipro] 500 mg PO Q12HR 1 Days #10 tab No Action Progesterone, Micronized [Progesterone] 400 mg PO HS estradioL [estradioL (Twice Weekly) 0.05 mg Patch] 1 patch TRANSDERM Q84H Discharge Medication List Progesterone, Micronized [Progesterone] 400 mg PO HS 10/10/21 [History] Ciprofloxacin HCl [Cipro] 500 mg PO Q12HR 1 Days #10 tab 08/22/22 [Rx] Ketorolac [Toradol] 10 mg PO Q6HR PRN #10 tab 08/22/22 [Rx] estradioL [estradioL (Twice Weekly) 0.05 mg Patch] 1 patch TRANSDERM Q84H 08/22/22 [History] Follow up Appointment(s)/Referral(s): Moo Franco DO [Primary Care Provider] - 1-2 days Napoleon Chaparro MD [STAFF PHYSICIAN] - 1 Week (Cystoscopy stent removal) Patient Instructions/Handouts: *Surgery [facility] - Scopalamine Patch Instructions Discharge Disposition: HOME SELF-CARE
[2022-08-22 14:36] VITALS: RESP 16
--- NOTE | 2022-08-22 14:52 | FL ---
Fluoroscopy History: LT URETEROSCOPY/STENT INSERTION LT URETEROSCOPY/STENT INSERTION . 4 SEC FL TIME. 2 SEC FL TIME
[2022-08-22 17:34] VITALS: TEMP 97.9
[2022-08-22 17:37] VITALS: BP 155/78; PULSE 72
[2022-08-22] MEDS ORDERED: NON FORMULARY DRUG (Progesterone, Micronized [Progesterone] 200 MG Capsule) PO SCH (21:00)
== END 2022-08-22 17:49 | disposition home or self-care (01) ==
LOC: EC 02:50 → 6NMEDSUR 05:16
PROVIDERS: ADMIT Urology; ATTEND Urology
DX: N13.2 Hydronephrosis with renal and ureteral calculous obstruction (principal); N85.4 Malposition of uterus; E11.9 Type 2 diabetes mellitus without complications; I10 Essential (primary) hypertension; I25.10 Atherosclerotic heart disease of native coronary artery without angina pectoris; J44.9 Chronic obstructive pulmonary disease, unspecified; G47.30 Sleep apnea, unspecified; B20 Human immunodeficiency virus [HIV] disease; E03.9 Hypothyroidism, unspecified; F12.90 Cannabis use, unspecified, uncomplicated; Z79.899 Other long term (current) drug therapy; Z82.49 Family history of ischemic heart disease and other diseases of the circulatory system; Z86.73 Personal history of transient ischemic attack (TIA), and cerebral infarction without residual deficits; Z59.6 Low income; Z56.0 Unemployment, unspecified
CPT/HCPCS: 96375 ×2; 96376; 96361; 96374; 99285; 36415; 80053; 83735; 85025; 81001; 82365; 74176; 52356; G0378; C2625; C1769; J2405; J0690; J3010; J1885 ×2; J1170; J2370; J2704; J2001

== ENCOUNTER → 2023-11-18 | Outpatient (CLI) | payer OTHER ==
--- NOTE | 2023-11-18 09:50 | MM ---
Reason for Exam: Screening (asymptomatic). Last mammogram was performed 1 year(s) and 1 month(s) ago. Patient History: Menarche at age 13. First Full-Term at age 28. Postmenopausal. Patient has history of breast feeding. Currently using Estrogen, for 5 years. Currently using Progesterone, for 5 years. Risk Values: Katerina 5 year model risk: 1.7%. NCI Lifetime model risk: 7.7%. Prior Study Comparison: 08/13/2019 Left Diagnostic Mammogram, [facility]. 09/25/2021 Bilateral Diagnostic Mammogram, [facility]. 10/16/2022 Bilateral MG 3D diag mammo w/cad LINA, [facility]. Tissue Density: The breasts are heterogeneously dense, which may obscure small masses. Findings: Analyzed By CAD. There is no suspicious group of microcalcifications or new suspicious mass. Overall Assessment: Negative, BI-RAD 1 Management: Screening Mammogram of both breasts in [address] [facility] will attempt to contact patient to return for supplemental views and ultrasound if indicated. Patient should continue monthly self-breast exams. A clinical breast exam by your physician is recommended on an annual basis. This exam should not preclude additional follow-up of suspicious palpable abnormalities. Note on Katerina scores and lifetime risk: 1. A Katerina score greater than 3% is considered moderate risk. If this is the case, consider specialist referral to assess eligibility for a risk reducing agent. 2. If overall lifetime risk for the development of breast cancer is 20% or higher, the patient may qualify for future screening with alternating mammogram and breast MRI. Electronically signed and approved by: Moo Denson DO
== END | disposition home or self-care (01) ==
LOC: RADMAMWWP 07:25
PROVIDERS: ATTEND Obstetrics & Gynecology
DX: Z12.31 Encounter for screening mammogram for malignant neoplasm of breast (principal); Z78.0 Asymptomatic menopausal state
CPT/HCPCS: 77063; 77067

== ENCOUNTER → 2025-02-07 | Outpatient (CLI) | payer OTHER ==
--- NOTE | 2025-02-07 11:05 | MM ---
Reason for Exam: Additional evaluation requested from abnormal screening. Last screening mammogram was performed less than 1 month ago. Patient History: Menarche at age 13. First Full-Term at age 28. Postmenopausal. Patient has history of breast feeding. Currently using Estrogen, for 5 years. Currently using Progesterone, for 5 years. Risk Values: Katerina 5 year model risk: 1.7%. NCI Lifetime model risk: 7.4%. Prior Study Comparison: 01/20/2018 Bilateral Screening Mammogram, [facility]. 08/02/2019 Bilateral Screening Mammogram, [facility]. 08/13/2019 Left Diagnostic Mammogram, [facility]. 09/25/2021 Bilateral Diagnostic Mammogram, [facility]. 10/16/2022 Bilateral MG 3D diag mammo w/cad L[facility], [facility]. 11/18/2023 Bilateral MG 3D screening mammo w/cad, [facility]. 02/02/2025 Bilateral MG 3D screening mammo w/cad, [facility]. Tissue Density: Left: The breasts are heterogeneously dense, which may obscure small masses. Findings: Analyzed By CAD. There are 2-3 small circumscribed round masses that appear to persist on additional views. The upper outer aspect left breast. Overall Assessment: Incomplete: need additional imaging evaluation, BI-RAD 0 Management: Diagnostic Breast Ultrasound of the left breast. . Results were given to the patient verbally at the time of exam. Patient should continue monthly self-breast exams. A clinical breast exam by your physician is recommended on an annual basis. This exam should not preclude additional follow-up of suspicious palpable abnormalities. Note on Katerina scores and lifetime risk: 1. A Katerina score greater than 3% is considered moderate risk. If this is the case, consider specialist referral to assess eligibility for a risk reducing agent. 2. If overall lifetime risk for the development of breast cancer is 20% or higher, the patient may qualify for future screening with alternating mammogram and breast MRI. [facility], , 02/07/2025 11:02 AM. Electronically signed and approved by: Matthew Mccarthy M.D.
--- NOTE | 2025-02-07 11:30 | USB ---
Reason for Exam: Additional evaluation requested from abnormal screening. Patient History: Menarche at age 13. First Full-Term at age 28. Postmenopausal. Patient has history of breast feeding. Currently using Estrogen, for 5 years. Currently using Progesterone, for 5 years. Risk Values: Katerina 5 year model risk: 1.7%. NCI Lifetime model risk: 7.4%. Technique: Method: Targeted. Prior Study Comparison: 10/16/2022 Bilateral MG 3D diag mammo w/cad [facility], [facility]. 11/18/2023 Bilateral MG 3D screening mammo w/cad, [facility]. 02/02/2025 Bilateral MG 3D screening mammo w/cad, [facility]. Findings: The upper outer quadrant of the left breast, the axilla of the left breast and the retroareolar of the left breast were scanned. A targeted ultrasound. At 12:00 position 5 cm distance from nipple there is a 10 x 5 x 10 mm simple appearing lobulated thin-walled cyst. There are 2 smaller cysts at 1:00 position at 5 cm distance from nipple. Overall Assessment: Benign, BI-RAD 2 Management: Screening Mammogram of both breasts in 1 year. Return to routine follow-up. A clinical breast exam by your physician is recommended on an annual basis and results should be correlated with mammographic findings. This exam should not preclude additional follow-up of suspicious palpable abnormalities. Results were given to the patient verbally at the time of exam. [facility], , 02/07/2025 11:27 AM. Electronically signed and approved by: Matthew Mccarthy M.D.
== END | disposition home or self-care (01) ==
LOC: RADMAMWWP 10:34
PROVIDERS: ATTEND Obstetrics & Gynecology
DX: R92.8 Other abnormal and inconclusive findings on diagnostic imaging of breast (principal); R92.332 Mammographic heterogeneous density, left breast; Z78.0 Asymptomatic menopausal state; N60.02 Solitary cyst of left breast
CPT/HCPCS: 77061; 77065